=== PATIENT | female | born 1975 | race Caucasian/White ===

== ENCOUNTER 2017-08-23 20:51 | Emergency (ER) | payer OTHER ==
[2017-08-23 21:15] VITALS: BP 155/98; PULSE 98; O2SAT 100
[2017-08-23] MEDS ORDERED: Phenergan 25 MG INJ IM ONE (21:21)
[2017-08-23] MEDS ORDERED: Hydromorphone 1 mg/ml Ampule IM ONE (21:21)
[2017-08-23] MEDS ORDERED: Phenergan 25 MG INJ ONE (21:25)
[2017-08-23] MEDS ORDERED: Hydromorphone 1 mg/ml Ampule ONE (21:25)
--- NOTE | 2017-08-23 21:26 | ERPHSYRPT ---
- History of Present Illness Time Seen by Provider: 08/23/17 21:13 Source: patient Exam Limitations: no limitations Patient Subjective Stated Complaint: Migraine Triage Nursing Assessment: Pt presents to the ED with complaints of migraine x3 days, hx of complaint. Pt states N/V beginning today. Pt states pain is normal for her migraine, no relief with Excedrin. Denies trauma or other pain. Pt is A& O x4, no distress noted. Physician History: FOR THE PAST 3 DAYS PT HAS HAD HER TYPICAL RIGHT SIDED MIGRAINE HEADACHE WITH PHOTOPHOBIA AND TODAY WITH NAUSEA AND VOMITING X5 WITHOUT BLOOD. PT DENIES FEVER , CHEST PAIN, ABDOMINAL PAIN. LAST CT HEAD WAS 2.5 YEARS AGO & WNL. Allergies/Adverse Reactions: lorazepam [From Ativan] Adverse Reaction (Verified 01/01/16 11:54) morphine Adverse Reaction (Verified 01/01/16 11:54) Home Medications: No Reportable Medications [No Reported Medications] 01/01/16 [History] Hx Tetanus, Diphtheria Vaccination/Date Given: Yes Hx Influenza Vaccination/Date Given: No Hx Pneumococcal Vaccination/Date Given: No Immunizations Up to Date: No - Review of Systems Eyes: Photophobia Abdominal/Gastrointestinal: Nausea, Vomiting Neurological: Headache All Other Systems: Reviewed and Negative - Past Medical History Pertinent Past Medical History: Yes Neurological History: Migraines - Past Surgical History Past Surgical History: Yes Gastrointestinal: Cholecystectomy Musculoskeletal: Orthopedic Surgery Female Surgical History: Hysterectomy, Tubal Ligation, Other Other Surgical History: Ruptured ovarian cyst removal. - Social History Smoking Status: Current every day smoker How long have you smoked: 10 years Exposure to second hand smoke: Yes Drug Use: none Patient Lives Alone: No - Female History Hx Now: No - Nursing Vital Signs Nursing Vital Signs: Initial Vital Signs Temperature 98.0 F 08/23/17 21:12 Pulse Rate 98 H 08/23/17 21:12 Respiratory Rate 18 08/23/17 21:12 Blood Pressure 155/98 08/23/17 21:12 O2 Sat by Pulse Oximetry 100 08/23/17 21:12 Pain Scale Pain Intensity 8 - Physical Exam General Appearance: alert Eye Exam: PERRL/EOMI, photophobia Ears, Nose, Throat Exam: TMs normal, pharynx normal, moist mucous membranes Neck Exam: normal inspection Respiratory Exam: lungs clear Cardiovascular Exam: normal heart sounds Gastrointestinal/Abdomen Exam: soft, normal bowel sounds Back Exam: normal range of motion Extremity Exam: normal inspection, normal range of motion Neurologic Exam: alert, oriented x 3, cooperative, sensation nml, No motor deficits, No motor weakness Skin Exam: warm, dry SpO2 Interpretation: normal SpO2: 100 Oxygen Delivery: Room Air - Course Nursing assessment & vital signs reviewed: Yes Ordered Tests: Medication Summary Generic Name Dose Route Start Last Admin Trade Name Freq PRN Reason Stop Dose Admin Hydromorphone HCl 1 mg 08/23/17 21:21 Hydromorphone 1 Mg/Ml Ampule IM 08/23/17 21:22 STAT ONE Promethazine HCl 25 mg 08/23/17 21:21 Phenergan 25 Mg Inj IM 08/23/17 21:22 STAT ONE - Departure Time of Disposition: 21:26 Departure Disposition: Home Clinical Impression: MIGRAINE CEPHALGIA Condition: Stable Critical Care Time: No Referrals: MARIUSZ DURÁN FNP [Primary Care Provider] - Instructions: Migraine Headache (DC) Additional Instructions: FOLLOW UP WITH PRIVATE DOCTOR TOMORROW.
== END 2017-08-23 21:50 | disposition home or self-care (01) ==
LOC: ED 20:51
DX: G43.909 Migraine, unspecified, not intractable, without status migrainosus (principal)
CPT/HCPCS: 96372; 96374; 96375; 99284; J1170; J2550

== ENCOUNTER 2017-09-22 21:27 | Emergency (ER) | payer OTHER ==
[2017-09-22] MEDS ORDERED: Phenergan 25 MG INJ IV ONE (22:08)
[2017-09-22] MEDS ORDERED: Hydromorphone 1 mg/ml Ampule IV ONE ×2 (22:08→23:36)
--- NOTE | 2017-09-22 22:13 | ERPHSYRPT ---
- History of Present Illness Time Seen by Provider: 09/22/17 22:05 Historian: patient Exam Limitations: no limitations Patient Subjective Stated Complaint: pt states she has been having pain in her lt lower abd for a few days and it has increased tonight Triage Nursing Assessment: pt alert and oriented, answers questions approp. pt ambulatory with stooped gait noted. pt guarding lt lower abd. respirations nonlabored with lungs cta. abd soft, pt reports tenderness to lt lower. bowel sounds present Physician History: FOR THE PAST 2 DAYS PT HAS HAD SHARP INTERMITTENT LLQ ABDOMINAL PAIN LASTING UP TO 6 HOURS PER EPISODE. LAST BM WAS THIS AM & WNL. PT ALSO C/O HEADACHE WITH THE ABDOMINAL PAIN AND STATES SHE HAS MIGRAINES. PT DENIES CHEST PAIN, SHORTNESS OF AIR, FEVER, VOMITING. Allergies/Adverse Reactions: lorazepam [From Ativan] Adverse Reaction (Verified 09/22/17 22:05) morphine Adverse Reaction (Verified 09/22/17 22:05) Hx Tetanus, Diphtheria Vaccination/Date Given: Yes Hx Influenza Vaccination/Date Given: No Hx Pneumococcal Vaccination/Date Given: No Immunizations Up to Date: Yes - Review of Systems Constitutional: No Fever Respiratory: No Dyspnea Cardiac: No Chest Pain Abdominal/Gastrointestinal: Abdominal Pain, No Vomiting, No Diarrhea Neurological: Headache All Other Systems: Reviewed and Negative - Past Medical History Pertinent Past Medical History: Yes Neurological History: Migraines - Past Surgical History Past Surgical History: Yes Gastrointestinal: Cholecystectomy Musculoskeletal: Orthopedic Surgery Female Surgical History: Hysterectomy, Tubal Ligation, Other Other Surgical History: Ruptured ovarian cyst removal. 3 knee and 2 shoulder surgeries - Social History Smoking Status: Current every day smoker How long have you smoked: 10 years Exposure to second hand smoke: Yes Drug Use: none Patient Lives Alone: No - Female History Hx Last Menstrual Period: hyster Hx Now: No - Nursing Vital Signs Nursing Vital Signs: Initial Vital Signs Temperature 98.7 F 09/22/17 21:53 Pulse Rate 101 H 09/22/17 21:53 Respiratory Rate 18 09/22/17 21:53 Blood Pressure 144/92 09/22/17 21:53 O2 Sat by Pulse Oximetry 100 09/22/17 21:53 Pain Scale Pain Intensity 9 - Physical Exam General Appearance: alert Eye Exam: PERRL/EOMI Ears, Nose, Throat Exam: TMs normal, pharynx normal, moist mucous membranes Neck Exam: normal inspection Respiratory Exam: lungs clear Cardiovascular Exam: normal heart sounds Gastrointestinal/Abdomen Exam: soft, normal bowel sounds, tenderness (MILD LLQ ABDOMINAL TENDERNESS WITH VOLUNTARY GUARDING.) Back Exam: normal range of motion Extremity Exam: normal inspection, No pedal edema Neurologic Exam: alert, cooperative Skin Exam: warm, dry SpO2 Interpretation: normal SpO2: 100 Oxygen Delivery: Room Air - Course Nursing assessment & vital signs reviewed: Yes - CT Exams Abdomen/Pelvis CT Interpretation: Tele-radiologist Report (NONOBSTRUCTING LEFT RENAL CALCULUS. MILD SMALL BOWEL WALL THICKENING IN THE LEFT SIDE OF THE ABDOMEN COULD REPRESENT ENTERITIS IN THE APPROPRIATE CLINICAL SETTING.) Ordered Tests: Active Orders 24 hr Category Date Time Status IV Insertion STAT Care 09/22/17 22:08 Active ABDOMEN AND PELVIS W/0 CONTRAS [CT] Stat Exams 09/22/17 22:08 Taken AMYLASE Stat Lab 09/22/17 22:20 Completed CBC W DIFF Stat Lab 09/22/17 22:20 Completed CMP Stat Lab 09/22/17 22:20 Completed CULTURE,URINE Stat Lab 09/22/17 22:20 Received LIPASE Stat Lab 09/22/17 22:20 Completed MAG [MAGNESIUM] Stat Lab 09/22/17 22:20 Completed UA W/ MICROSCOPIC Stat Lab 09/22/17 22:20 Completed Urine Triage Profile Stat Lab 09/22/17 22:20 Completed Medication Summary Generic Name Dose Route Start Last Admin Trade Name Freq PRN Reason Stop Dose Admin Lactated Ringer's 1,000 mls @ 100 mls/hr 09/22/17 22:30 09/22/17 22:25 Lactated Ringers IV 10/22/17 22:29 100 mls/hr .Q10H MARCO Administration Ceftriaxone Sodium/Dextrose 1 g in 50 mls @ 100 mls/hr 09/22/17 23:36 Rocephin 1 Gm-D5w 50 Ml Bag IV 09/23/17 00:05 STAT STA Discontinued Medications Generic Name Dose Route Start Last Admin Trade Name Freq PRN Reason Stop Dose Admin Hydromorphone HCl 1 mg 09/22/17 22:08 09/22/17 22:24 Hydromorphone 1 Mg/Ml Ampule IV 09/22/17 22:09 1 mg STAT ONE Administration Hydromorphone HCl Confirm 09/22/17 22:21 Dilaudid 2 Mg Injection Administered 09/22/17 22:22 Dose 2 mg .ROUTE .STK-MED ONE Hydromorphone HCl 1 mg 09/22/17 23:36 Hydromorphone 1 Mg/Ml Ampule IV 09/22/17 23:37 STAT ONE Ondansetron HCl 4 mg 09/22/17 23:36 Zofran 4 Mg/2 Ml Vial IV 09/22/17 23:37 STAT ONE Promethazine HCl 12.5 mg 09/22/17 22:08 09/22/17 22:25 Phenergan 25 Mg Inj IV 09/22/17 22:09 12.5 mg STAT ONE Administration Promethazine HCl Confirm 09/22/17 22:21 Phenergan 25 Mg Inj Administered 09/22/17 22:22 Dose 25 mg .ROUTE .STK-MED ONE Lab/Rad Data: Laboratory Result Diagrams 09/22/17 22:20 09/22/17 22:20 Laboratory Results 09/22/17 09/22/17 09/22/17 Range/Units 22:20 22:20 22:20 WBC 11.8 H (4.0-10.5) K/mm3 RBC 4.05 L (4.1-5.4) M/mm3 Hgb 13.6 (12.0-16.0) gm/dl Hct 41.8 (35-47) % MCV 103.2 H (78-100) fl MCH 33.5 H (26-32) pg MCHC 32.5 (32-36) g/dl RDW 12.9 (11.5-14.0) % Plt Count 300 (150-450) K/mm3 MPV 9.6 H (6-9.5) fl Gran % 58.0 (36.0-66.0) % Lymphocytes % 30.2 (24.0-44.0) % Monocytes % 9.5 (0.0-12.0) % Eosinophils % 1.9 (0.00-5.0) % Basophils % 0.4 (0.0-0.4) % Basophils # 0.05 (0-0.4) Sodium 142 (137-145) mmol/L Potassium 4.0 (3.5-5.1) mmol/L Chloride 106 (98-107) mmol/L Carbon Dioxide 27 (22-30) mmol/L Anion Gap 13.6 (5-15) MEQ/L BUN 12 (7-17) mg/dL Creatinine 0.83 (0.52-1.04) mg/dL Estimated GFR > 60 ML/MIN Glucose 100 (74-106) mg/dL Calcium 9.1 (8.4-10.2) mg/dL Magnesium 2.0 (1.6-2.3) mg/dL Total Bilirubin 0.10 L (0.2-1.3) mg/dL AST 16 (14-36) U/L ALT 15 (0-35) U/L Alkaline Phosphatase 42 (38-126) U/L Serum Total Protein 7.0 (6.3-8.2) gm/dL Albumin 4.3 (3.5-5.0) g/dL Amylase 79 (30-110) U/L Lipase 119 (23-300) U/L Ur Collection Type Urine Color (YELLOW) Urine Appearance (CLEAR) Urine pH (5-6) Ur Specific [place] (1.005-1.025) Urine Protein (Negative) Urine Ketones (NEGATIVE) Urine Blood (0-5) Vincent/ul Urine Nitrite (NEGATIVE) Urine Bilirubin (NEGATIVE) Urine Urobilinogen (0-1) mg/dL Ur Leukocyte Esterase (NEGATIVE) Urine Microscopic RBC (0-2) /HPF Urine Microscopic WBC (0-5) /HPF Ur Epithelial Cells (FEW) /HPF Urine Bacteria (NEGATIVE) /HPF Urine Culture Reflexed (NO) Urine Glucose (NEGATIVE) mg/dL Urine Opiates Level (NEGATIVE) Ur Methadone (NEGATIVE) Urine Barbiturates (NEGATIVE) Ur Phencyclidine (PCP) (NEGATIVE) Urine Amphetamine (NEGATIVE) U Benzodiazepine Level (NEGATIVE) Urine Cocaine (NEGATIVE) Urine Marijuana (THC) (NEGATIVE) Specimen Received 09/22/17 09/22/17 Range/Units 22:20 22:20 WBC (4.0-10.5) K/mm3 RBC (4.1-5.4) M/mm3 Hgb (12.0-16.0) gm/dl Hct (35-47) % MCV (78-100) fl MCH (26-32) pg MCHC (32-36) g/dl RDW (11.5-14.0) % Plt Count (150-450) K/mm3 MPV (6-9.5) fl Gran % (36.0-66.0) % Lymphocytes % (24.0-44.0) % Monocytes % (0.0-12.0) % Eosinophils % (0.00-5.0) % Basophils % (0.0-0.4) % Basophils # (0-0.4) Sodium (137-145) mmol/L Potassium (3.5-5.1) mmol/L Chloride (98-107) mmol/L Carbon Dioxide (22-30) mmol/L Anion Gap (5-15) MEQ/L BUN (7-17) mg/dL Creatinine (0.52-1.04) mg/dL Estimated GFR ML/MIN Glucose (74-106) mg/dL Calcium (8.4-10.2) mg/dL Magnesium (1.6-2.3) mg/dL Total Bilirubin (0.2-1.3) mg/dL AST (14-36) U/L ALT (0-35) U/L Alkaline Phosphatase (38-126) U/L Serum Total Protein (6.3-8.2) gm/dL Albumin (3.5-5.0) g/dL Amylase (30-110) U/L Lipase (23-300) U/L Ur Collection Type CLEAN CATCH Urine Color YELLOW (YELLOW) Urine Appearance SLIGHTLY CLOUDY (CLEAR) Urine pH 6.5 (5-6) Ur Specific [place] 1.015 (1.005-1.025) Urine Protein NEGATIVE (Negative) Urine Ketones NEGATIVE (NEGATIVE) Urine Blood NEGATIVE (0-5) Vincent/ul Urine Nitrite POSITIVE (NEGATIVE) Urine Bilirubin NEGATIVE (NEGATIVE) Urine Urobilinogen NORMAL (0-1) mg/dL Ur Leukocyte Esterase NEGATIVE (NEGATIVE) Urine Microscopic RBC 2-5 (0-2) /HPF Urine Microscopic WBC 5-10 (0-5) /HPF Ur Epithelial Cells FEW (FEW) /HPF Urine Bacteria MODERATE (NEGATIVE) /HPF Urine Culture Reflexed YES (NO) Urine Glucose NEGATIVE (NEGATIVE) mg/dL Urine Opiates Level NEGATIVE (NEGATIVE) Ur Methadone NEGATIVE (NEGATIVE) Urine Barbiturates NEGATIVE (NEGATIVE) Ur Phencyclidine (PCP) NEGATIVE (NEGATIVE) Urine Amphetamine NEGATIVE (NEGATIVE) U Benzodiazepine Level NEGATIVE (NEGATIVE) Urine Cocaine NEGATIVE (NEGATIVE) Urine Marijuana (THC) NEGATIVE (NEGATIVE) Specimen Received 09/22/17 2230 - Departure Time of Disposition: 23:41 Departure Disposition: Home Clinical Impression: ABDOMINAL PAIN, UTI Condition: Stable Critical Care Time: No Referrals: MARIUSZ DURÁN FNP [Primary Care Provider] - Instructions: Urinary Tract Infection, Adult (DC) Additional Instructions: FOLLOW UP WITH PRIVATE DOCTOR TOMORROW. Prescriptions: Naproxen [Naprosyn] 500 mg PO Q12H PRN PRN #20 tablet PRN Reason: Pain Smz/Tmp Ds Tablet [Bactrim Ds Tablet] 1 udtab PO BID #20 tablet
[2017-09-22] MEDS ORDERED: DILAUDID 2 MG INJECTION ONE ×2 (22:21→23:48)
[2017-09-22] MEDS ORDERED: Lactated Ringers 1,000 ML IV ONE (22:21)
[2017-09-22] MEDS ORDERED: Phenergan 25 MG INJ ONE (22:21)
[2017-09-22] MEDS ORDERED: Lactated Ringers 1,000 ML IV SCH (22:30)
[2017-09-22 22:41] LABS: BASOPHIL % 0.4 % (0.0-0.4); Basophil (Absolute #) 0.05 (0-0.4); Eosinophil % 1.9 % (0.00-5.0); Eosinophil (Absolute #) 0.22 (0-0.5); Granulocyte Absolute (ANC) 6.87 (1.4-6.9); Hematocrit 41.8 % (35-47); Hemoglobin 13.6 gm/dl (12.0-16.0); Lymphocyte (Absolute #) 3.57 (1.0-4.6); Lymphocytes % 30.2 % (24.0-44.0); Mean Cell Volume 103.2 fl (78-100); Mean Corpuscular Hgb Concent. 32.5 g/dl (32-36); Mean Platelet Volume 9.6 fl (6-9.5); Monocyte (Absolute #) 1.12 (0.0-1.3); Monocytes % 9.5 % (0.0-12.0); Platelet Count 300 K/mm3 (150-450); Red Blood Count 4.05 M/mm3 (4.1-5.4); Red Cell Distribution Width 12.9 % (11.5-14.0); White Blood Count 11.8 K/mm3 (4.0-10.5)
[2017-09-22 22:44] LABS: Mean Corpuscular Hemoglobin 33.5 pg (26-32)
[2017-09-22 23:06] LABS: Amphetamine,Urine NEGATIVE (NEGATIVE); Barbiturate,Urine NEGATIVE (NEGATIVE); Benzodiazepine,Urine NEGATIVE (NEGATIVE); Cocaine,Urine NEGATIVE (NEGATIVE); Methadone,Urine NEGATIVE (NEGATIVE); Opiate,Urine NEGATIVE (NEGATIVE); PCP,Urine NEGATIVE (NEGATIVE); THC,Urine NEGATIVE (NEGATIVE)
[2017-09-22 23:27] LABS: Appearance SLIGHTLY CLOUDY (CLEAR); Bilirubin NEGATIVE (NEGATIVE); Blood NEGATIVE Ery/ul (0-5); Glucose NEGATIVE (NEGATIVE); Ketones NEGATIVE (NEGATIVE); Leukocyte Esterase NEGATIVE (NEGATIVE); Nitrite POSITIVE (NEGATIVE); Ph 6.5 (5-6); Protein,Urine Dip NEGATIVE (Negative); Specific Gravity 1.015 (1.005-1.025); Urobilinogen NORMAL mg/dL (0-1)
[2017-09-22 23:29] LABS: ALBUMIN 4.3 g/dL (3.5-5.0); ALKALINE PHOSPHATASE 42 U/L (38-126); AMYLASE 79 U/L (30-110); ANION GAP 13.6 MEQ/L (5-15); BLOOD UREA NITROGEN 12 mg/dL (7-17); CHLORIDE 106 mmol/L (98-107); Calcium 9.1 mg/dL (8.4-10.2); Carbon Dioxide 27 mmol/L (22-30); Creatinine 1 0.83 mg/dL (0.52-1.04); Glucose 100 mg/dL (74-106); LIPASE 119 U/L (23-300); SGOT/AST 16 U/L (14-36); SGPT/ALT 15 U/L (0-35); SODIUM 142 mmol/L (137-145)
[2017-09-22 23:30] LABS: Bacteria MODERATE /HPF (NEGATIVE); Epithelial Cells FEW /HPF (FEW)
[2017-09-22] MEDS ORDERED: Zofran 4 MG/2 ML VIAL IV ONE (23:36)
[2017-09-22] MEDS ORDERED: ROCEPHIN 1 Gm-D5w 50 ml Bag** 1 G/50 ML IVPB IV STA (23:36)
[2017-09-22] MEDS ORDERED: Zofran 4 MG/2 ML VIAL ONE (23:48)
[2017-09-22] MEDS ORDERED: ROCEPHIN 1 Gm-D5w 50 ml Bag** 1 G/50 ML IVPB IV ONE (23:49)
[2017-09-22 23:58] VITALS: BP 121/80; PULSE 92; O2SAT 99
--- NOTE | 2017-09-23 08:50 | XRAY ---
Indication: Left lower quadrant pain 3 days. History of ovarian cysts. Multiple contiguous axial images obtained through the abdomen and pelvis without contrast as ordered. Comparison: None Lung bases demonstrate mild bibasilar dependent atelectasis. No infiltrate or effusion. Heart is not enlarged. Stomach is distended with food. Noncontrasted stomach and bowel loops appear nonobstructed. Normal appendix. No free fluid/air. Previous cholecystectomy and partial hysterectomy. Nonobstructing punctate left renal calcification. Remaining liver, pancreas, spleen, adrenal glands, kidneys, ureters, bladder, and aorta appear unremarkable for noncontrast exam. Osseous structures intact. Impression: 1. Nonobstructing left renal micro-calcification. 2. No acute intra-abdominal/pelvic abnormalities on this noncontrast exam. Comment: Preliminary interpretation was made by [facility]. No critical discrepancy. CTDI 8.13
== END 2017-09-23 00:15 | disposition home or self-care (01) ==
LOC: ED 21:27
DX: R10.32 Left lower quadrant pain (principal); N39.0 Urinary tract infection, site not specified
CPT/HCPCS: 36000; 36415; 74176; 80053; 80307; 81000; 82150; 83690; 83735; 85025; 87086; 96360; 96361; 96365; 96374; 96375; 96376; 99284; J0696; J1170; J2405; J2550

== ENCOUNTER 2017-10-03 12:56 | Emergency (ER) | payer OTHER ==
[2017-10-03] MEDS ORDERED: TORAdol 30 mg Injection IV ONE (13:10)
[2017-10-03] MEDS ORDERED: Zofran 4 MG/2 ML VIAL IV ONE (13:10)
[2017-10-03] MEDS ORDERED: Sodium Chloride 0.9% 1000 ML 1,000 ML IV STA (13:10)
--- NOTE | 2017-10-03 13:15 | ERPHSYRPT ---
- History of Present Illness Time Seen by Provider: 10/03/17 13:05 Source: patient Exam Limitations: no limitations Patient Subjective Stated Complaint: pt reports being dx with a kidney stone a week and half age-states that today pain has become more intense-denies difficulty with urination-denies fever Triage Nursing Assessment: pt pink warm and [id number] soft and nontender to palp-resp easy and nonlbored Physician History: 41 y/o female comes to the ER with complaints of left groin pain that started today. Pt was seen 1 1/2 weeks ago for a kidney stone and was given pain meds and flomax. Pt states that the pain got better and then started coming back today. Pt describes the pain as sharp, constant, 9/10, and not relieved by tylenol. Pt does admit to nausea. Pt denies any fever, chills, vomiting, back pain or urinary symptoms. Timing/Duration: today Activites at Onset: none Quality: sharpness Onset Location: pelvic pain Pain Radiation: none Severity of Pain-Max: severe Severity of Pain-Current: severe Prior abdominal problems: similar symptoms Sexual intercourse history: non-contributory Modifying Factors: Improves With: nothing Associated Symptoms: abdominal pain Allergies/Adverse Reactions: lorazepam [From Ativan] Adverse Reaction (Verified 10/03/17 13:08) morphine Adverse Reaction (Verified 10/03/17 13:08) Hx Tetanus, Diphtheria Vaccination/Date Given: Yes Hx Influenza Vaccination/Date Given: No Hx Pneumococcal Vaccination/Date Given: No - Review of Systems Constitutional: No Fever, No Chills Eyes: No Symptoms Ears, Nose, & Throat: No Symptoms Respiratory: No Cough, No Dyspnea Cardiac: No Chest Pain, No Edema, No Syncope Abdominal/Gastrointestinal: Abdominal Pain, No Nausea, No Vomiting, No Diarrhea Genitourinary Symptoms: No Dysuria, No Frequency, No Hematuria, No Hesitancy, No Urgency Musculoskeletal: No Back Pain, No Neck Pain Skin: No Rash Neurological: No Dizziness, No Focal Weakness, No Sensory Changes Psychological: No Symptoms Endocrine: No Symptoms All Other Systems: Reviewed and Negative - Past Medical History Pertinent Past Medical History: Yes Neurological History: Migraines - Past Surgical History Past Surgical History: Yes Gastrointestinal: Cholecystectomy Musculoskeletal: Orthopedic Surgery Female Surgical History: Hysterectomy, Tubal Ligation, Other Other Surgical History: Ruptured ovarian cyst removal. 3 knee and 2 shoulder surgeries - Social History Smoking Status: Current every day smoker How long have you smoked: 10 years Exposure to second hand smoke: Yes Drug Use: none Patient Lives Alone: No - Female History Hx Last Menstrual Period: hysterectomy Hx Now: No - Nursing Vital Signs Nursing Vital Signs: Initial Vital Signs Temperature 98.3 F 10/03/17 13:03 Pulse Rate 94 H 10/03/17 13:03 Respiratory Rate 18 10/03/17 13:03 Blood Pressure 131/94 10/03/17 13:03 O2 Sat by Pulse Oximetry 100 10/03/17 13:03 Pain Scale Pain Intensity 9 - Physical Exam General Appearance: mild distress, alert Eye Exam: PERRL/EOMI, eyes nml inspection Ears, Nose, Throat Exam: normal ENT inspection, TMs normal, pharynx normal, moist mucous membranes Neck Exam: normal inspection, non-tender, supple, full range of motion Respiratory Exam: normal breath sounds, lungs clear, No respiratory distress Cardiovascular Exam: regular rate/rhythm, normal heart sounds, normal peripheral pulses Gastrointestinal/Abdomen Exam: soft, normal bowel sounds, tenderness, No mass Back Exam: normal inspection, normal range of motion, CVA tenderness, No vertebral tenderness Extremity Exam: normal inspection, normal range of motion, pelvis stable Neurologic Exam: alert, oriented x 3, 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, 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, normal mood/affect, sensation nml, No motor deficits Skin Exam: normal color, warm, dry Lymphatic Exam: No adenopathy SpO2: 100 Oxygen Delivery: Room Air - Course Nursing assessment & vital signs reviewed: Yes Ordered Tests: Active Orders 24 hr Category Date Time Status IV Insertion STAT Care 10/03/17 13:10 Active NPO (ED) STAT Care 10/03/17 13:10 Active ABDOMEN AND PELVIS W/0 CONTRAS [CT] Stat Exams 10/03/17 13:11 Completed AMYLASE Stat Lab 10/03/17 13:18 Completed CBC W DIFF Stat Lab 10/03/17 13:18 Completed CMP Stat Lab 10/03/17 13:18 Completed CULTURE,URINE Stat Lab 10/03/17 13:18 Received LIPASE Stat Lab 10/03/17 13:18 Completed UA W/ MICROSCOPIC Stat Lab 10/03/17 13:18 Completed Medication Summary Discontinued Medications Generic Name Dose Route Start Last Admin Trade Name Freq PRN Reason Stop Dose Admin Hydromorphone HCl 1 mg 10/03/17 14:10 10/03/17 14:17 Hydromorphone 1 Mg/Ml Ampule IV 10/03/17 14:11 1 mg STAT ONE Administration Hydromorphone HCl Confirm 10/03/17 14:15 Dilaudid 2 Mg Injection Administered 10/03/17 14:16 Dose 2 mg .ROUTE .STK-MED ONE Sodium Chloride 1,000 mls @ 999 mls/hr 10/03/17 13:10 10/03/17 13:22 Sodium Chloride 0.9% 1000 Ml IV 10/03/17 14:10 999 mls/hr .Q1H1M STA Administration Sodium Chloride Confirm 10/03/17 13:21 Sodium Chloride 0.9% 1000 Ml Administered 10/03/17 13:22 Dose 1,000 mls @ ud .ROUTE .STK-MED ONE Ketorolac Tromethamine 30 mg 10/03/17 13:10 10/03/17 13:21 Toradol 30 Mg Injection IV 10/03/17 13:11 30 mg STAT ONE Administration Ketorolac Tromethamine Confirm 10/03/17 13:21 Toradol 30 Mg Injection Administered 10/03/17 13:22 Dose 30 mg .ROUTE .STK-MED ONE Ondansetron HCl 4 mg 10/03/17 13:10 10/03/17 13:21 Zofran 4 Mg/2 Ml Vial IV 10/03/17 13:11 4 mg STAT ONE Administration Ondansetron HCl Confirm 10/03/17 13:21 Zofran 4 Mg/2 Ml Vial Administered 10/03/17 13:22 Dose 4 mg .ROUTE .STK-MED ONE Lab/Rad Data: Laboratory Result Diagrams 10/03/17 13:18 10/03/17 13:18 Laboratory Results 10/03/17 10/03/17 10/03/17 Range/Units 13:18 13:18 13:18 WBC 9.8 (4.0-10.5) K/mm3 RBC 4.49 (4.1-5.4) M/mm3 Hgb 15.1 (12.0-16.0) gm/dl Hct 46.3 (35-47) % MCV 103.1 H (78-100) fl MCH 33.6 H (26-32) pg MCHC 32.6 (32-36) g/dl RDW 13.1 (11.5-14.0) % Plt Count 300 (150-450) K/mm3 MPV 9.6 H (6-9.5) fl Gran % 58.5 (36.0-66.0) % Eos # (Auto) 0.35 (0-0.5) Absolute Lymphs (auto) 2.68 (1.0-4.6) Lymphocytes % 27.3 (24.0-44.0) % Monocytes % 9.9 (0.0-12.0) % Eosinophils % 3.6 (0.00-5.0) % Basophils % 0.7 (0.0-0.4) % Absolute Granulocytes 5.73 (1.4-6.9) Basophils # 0.07 (0-0.4) Sodium 142 (137-145) mmol/L Potassium 4.1 (3.5-5.1) mmol/L Chloride 106 (98-107) mmol/L Carbon Dioxide 24 (22-30) mmol/L Anion Gap 15.8 H (5-15) MEQ/L BUN 9 (7-17) mg/dL Creatinine 0.80 (0.52-1.04) mg/dL Estimated GFR > 60 ML/MIN Glucose 97 (74-106) mg/dL Calcium 9.7 (8.4-10.2) mg/dL Total Bilirubin 0.40 (0.2-1.3) mg/dL AST 21 (14-36) U/L ALT 25 (0-35) U/L Alkaline Phosphatase 48 (38-126) U/L Serum Total Protein 7.8 (6.3-8.2) g/dL Albumin 4.7 (3.5-5.0) g/dL Amylase 68 (30-110) U/L Lipase 53 (23-300) U/L Ur Collection Type CLEAN CATCH Urine Color YELLOW (YELLOW) Urine Appearance CLEAR (CLEAR) Urine pH 5.0 (5-6) Ur Specific [place] 1.020 (1.005-1.025) Urine Protein TRACE (Negative) Urine Ketones NEGATIVE (NEGATIVE) Urine Blood TRACE NON-HEM (0-5) Vincent/ul Urine Nitrite NEGATIVE (NEGATIVE) Urine Bilirubin NEGATIVE (NEGATIVE) Urine Urobilinogen NORMAL (0-1) mg/dL Ur Leukocyte Esterase NEGATIVE (NEGATIVE) Urine Microscopic RBC 2-5 (0-2) /HPF Urine Microscopic WBC 0-2 (0-5) /HPF Ur Epithelial Cells MANY (FEW) /HPF Urine Bacteria MANY (NEGATIVE) /HPF Urine Culture Reflexed YES (NO) Urine Glucose NEGATIVE (NEGATIVE) mg/dL Specimen Received 10/03/17 1315 - Progress Progress: improved Progress Note: 10/03/17 14:[address] scan shows a left microcalcification with no obstruction. There is a new right sided ovarian cyst. No infection in the urine. The rest of the labs are within normal limits. The patient feels better after receiving dilaudid, zofran and NS fluids. I spoke to the nurse practitioner at Dr Thorpe's office and patient will be seen as soon as possible. - Departure Time of Disposition: 14:28 Departure Disposition: Home Clinical Impression: Kidney stone Ovarian cyst Qualifiers: Laterality: right Qualified Code(s): N83.201 - Unspecified ovarian cyst, right side Condition: Stable Critical Care Time: No Referrals: ROMAIN BUTLER NP [Primary Care Provider] - KEVIN THORPE [COURTESY STAFF] - Instructions: Ovarian Cyst (DC), Kidney Stones (DC) Additional Instructions: Follow up with Dr Thorpe in the next few days. Return to the ER if you should have worsening abdominal pain, nausea, vomiting, fever, chills or urinary symptoms. Prescriptions: Hydrocodone Bit/Acetaminophen [[place] 5-325 Tablet] 1 each PO QID PRN #12 tablet MDD 4 PRN Reason: Pain Ondansetron [Zofran Odt] 4 mg PO QID PRN #20 tab.rapdis PRN Reason: Nausea/Vomiting
[2017-10-03] MEDS ORDERED: TORAdol 30 mg Injection ONE (13:21)
[2017-10-03] MEDS ORDERED: Zofran 4 MG/2 ML VIAL ONE (13:21)
[2017-10-03] MEDS ORDERED: Sodium Chloride 0.9% 1000 ML 1,000 ML ONE (13:21)
[2017-10-03 13:29] LABS: BASOPHIL % 0.7 % (0.0-0.4); Basophil (Absolute #) 0.07 (0-0.4); Eosinophil % 3.6 % (0.00-5.0); Eosinophil (Absolute #) 0.35 (0-0.5); Granulocyte Absolute (ANC) 5.73 (1.4-6.9); Granulocytes % 58.5 % (36.0-66.0); Hematocrit 46.3 % (35-47); Hemoglobin 15.1 gm/dl (12.0-16.0); Lymphocyte (Absolute #) 2.68 (1.0-4.6); Lymphocytes % 27.3 % (24.0-44.0); Mean Cell Volume 103.1 fl (78-100); Mean Corpuscular Hemoglobin 33.6 pg (26-32); Mean Corpuscular Hgb Concent. 32.6 g/dl (32-36); Mean Platelet Volume 9.6 fl (6-9.5); Monocyte (Absolute #) 0.97 (0.0-1.3); Monocytes % 9.9 % (0.0-12.0); Platelet Count 300 K/mm3 (150-450); Red Blood Count 4.49 M/mm3 (4.1-5.4); Red Cell Distribution Width 13.1 % (11.5-14.0); White Blood Count 9.8 K/mm3 (4.0-10.5)
[2017-10-03 13:36] LABS: Appearance CLEAR (CLEAR)
[2017-10-03 13:37] LABS: Bacteria MANY /HPF (NEGATIVE); Bilirubin NEGATIVE (NEGATIVE); Blood TRACE NON-HEM Ery/ul (0-5); Epithelial Cells MANY /HPF (FEW); Glucose NEGATIVE (NEGATIVE); Ketones NEGATIVE (NEGATIVE); Leukocyte Esterase NEGATIVE (NEGATIVE); Nitrite NEGATIVE (NEGATIVE); Protein,Urine Dip TRACE (Negative); Urobilinogen NORMAL mg/dL (0-1); WBC 0-2 /HPF (0-5)
[2017-10-03 13:52] LABS: ALBUMIN 4.7 g/dL (3.5-5.0); ALKALINE PHOSPHATASE 48 U/L (38-126); AMYLASE 68 U/L (30-110); ANION GAP 15.8 MEQ/L (5-15); BLOOD UREA NITROGEN 9 mg/dL (7-17); CHLORIDE 106 mmol/L (98-107); Calcium 9.7 mg/dL (8.4-10.2); Carbon Dioxide 24 mmol/L (22-30); Glucose 97 mg/dL (74-106); LIPASE 53 U/L (23-300); Potassium 4.1 mmol/L (3.5-5.1); SGOT/AST 21 U/L (14-36); SGPT/ALT 25 U/L (0-35); SODIUM 142 mmol/L (137-145); Total Protein 7.8 g/dL (6.3-8.2)
--- NOTE | 2017-10-03 13:52 | XRAY ---
Indication: Left lower quadrant pain. Multiple contiguous axial images obtained through the abdomen and pelvis without contrast using renal stone protocol. Comparison: September 22, 2017. Lung bases essentially clear. Heart is not enlarged. Stable nonobstructing punctate left renal calculus. Noncontrasted stomach and bowel loops again appear nonobstructed. Normal appendix. There is now mild diffuse scattered colonic fecal debris throughout. New 3.5 cm right ovary cyst. No free fluid/air. Again previous cholecystectomy and partial hysterectomy. Remaining liver, pancreas, spleen, adrenal glands, kidneys, ureters, bladder, and aorta appear unremarkable for noncontrast exam. Osseous structures intact. Impression: 1. Stable nonobstructing left renal micro-calculus. 2. New 3.5 cm right ovary cyst. 3. Mild fecal stasis without obstruction. CTDI 8.81
[2017-10-03] MEDS ORDERED: Hydromorphone 1 mg/ml Ampule IV ONE (14:10)
[2017-10-03] MEDS ORDERED: DILAUDID 2 MG INJECTION ONE (14:15)
[2017-10-03 14:48] VITALS: BP 129/91; PULSE 71; O2SAT 99
== END 2017-10-03 14:48 | disposition home or self-care (01) ==
LOC: ED 12:56
DX: N20.0 Calculus of kidney (principal); N83.201 Unspecified ovarian cyst, right side
CPT/HCPCS: 36000; 36415; 74176; 80053; 81000; 82150; 83690; 85025; 87086; 96360; 96374; 96375; 99284; J1170; J1885; J2405

== ENCOUNTER 2017-11-09 19:56 | Emergency (ER) | payer OTHER ==
[2017-11-09] MEDS ORDERED: Hydromorphone 1 mg/ml Ampule IM ONE (22:16)
[2017-11-09] MEDS ORDERED: Phenergan 25 MG INJ IM ONE (22:16)
[2017-11-09] MEDS ORDERED: Hydromorphone 1 mg/ml Ampule ONE (22:21)
[2017-11-09] MEDS ORDERED: Phenergan 25 MG INJ ONE (22:21)
--- NOTE | 2017-11-09 22:21 | ERPHSYRPT ---
- History of Present Illness Time Seen by Provider: 11/09/17 22:05 Source: patient Exam Limitations: no limitations Patient Subjective Stated Complaint: migraine starting 2 days [employer] with vomiting light sensitive Triage Nursing Assessment: alert and oriented presents with sunglasses.. staets pain stated 2 days ago. on right posterior head. neuro intact. has hx migraines. Physician History: FOR THE PAST 2 DAYS PT HAS HAD A RIGHT SIDED MIGRAINE HEADACHE WITH NAUSEA, VOMITING AND PHOTOPHOBIA. LAST CT HEAD WAS 3 YEARS AGO & WNL. Allergies/Adverse Reactions: lorazepam [From Ativan] Adverse Reaction (Verified 10/03/17 13:08) morphine Adverse Reaction (Verified 10/03/17 13:08) Hx Tetanus, Diphtheria Vaccination/Date Given: Yes Hx Influenza Vaccination/Date Given: No Hx Pneumococcal Vaccination/Date Given: No Immunizations Up to Date: Yes - Review of Systems Eyes: Photophobia Abdominal/Gastrointestinal: Nausea, Vomiting Neurological: Headache All Other Systems: Reviewed and Negative - Past Medical History Pertinent Past Medical History: Yes Neurological History: Migraines - Past Surgical History Past Surgical History: Yes Gastrointestinal: Cholecystectomy Musculoskeletal: Orthopedic Surgery Female Surgical History: Hysterectomy, Tubal Ligation, Other Other Surgical History: Ruptured ovarian cyst removal. 3 knee and 2 shoulder surgeries - Social History Smoking Status: Current every day smoker How long have you smoked: 10 years Exposure to second hand smoke: No Drug Use: none Patient Lives Alone: No - Female History Hx Now: No - Nursing Vital Signs Nursing Vital Signs: Initial Vital Signs Temperature 97.9 F 11/09/17 20:07 Pulse Rate 88 11/09/17 20:07 Respiratory Rate 16 11/09/17 20:07 Blood Pressure 156/90 11/09/17 20:07 O2 Sat by Pulse Oximetry 98 11/09/17 20:07 Pain Scale Pain Intensity 8 - Physical Exam General Appearance: alert Eye Exam: PERRL/EOMI, photophobia Ears, Nose, Throat Exam: TMs normal, pharynx normal, moist mucous membranes Neck Exam: normal inspection Respiratory Exam: lungs clear Cardiovascular Exam: normal heart sounds Gastrointestinal/Abdomen Exam: soft, normal bowel sounds Back Exam: normal range of motion Extremity Exam: normal inspection, normal range of motion, No pedal edema Neurologic Exam: alert, cooperative, sensation nml, No motor deficits, No motor weakness Skin Exam: warm, dry SpO2 Interpretation: normal SpO2: 98 Oxygen Delivery: Room Air - Course Nursing assessment & vital signs reviewed: Yes - Departure Time of Disposition: 22:20 Departure Disposition: Home Clinical Impression: MIGRAINE CEPHALGIA Condition: Stable Critical Care Time: No Referrals: ROMAIN BUTLER NP [Primary Care Provider] - Instructions: Headache, Adult (DC) Additional Instructions: FOLLOW UP WITH PRIVATE DOCTOR TOMORROW. Prescriptions: Promethazine HCl 25 mg [Phenergan 25 mg] 25 mg PO Q4H PRN PRN #14 tablet PRN Reason: Nausea/Vomiting
[2017-11-09 22:29] VITALS: BP 143/85; PULSE 80; O2SAT 97
== END 2017-11-09 22:38 | disposition home or self-care (01) ==
LOC: ED 19:56
DX: G43.909 Migraine, unspecified, not intractable, without status migrainosus (principal)
CPT/HCPCS: 96372; 99283; 99284; J1170; J2550

== ENCOUNTER 2017-12-01 16:43 | Emergency (ER) | payer OTHER ==
[2017-12-01 17:19] VITALS: BP 153/92; PULSE 90; O2SAT 97
--- NOTE | 2017-12-01 18:00 | ERPHSYRPT ---
- History of Present Illness Time Seen by Provider: 12/01/17 17:59 Source: patient Exam Limitations: no limitations Patient Subjective Stated Complaint: pt here for injury to left foot states she hit left foot on bed 2 nights ago Triage Nursing Assessment: pt walked in ,alert,resp easy, has reddness to left top of foot with swelling Physician History: The patient is a 42-year-old female who complains of hurting her left great toe yesterday afternoon on a bedpost when she was walking passed and catching her toe on the bedpost. The toe joint is now painful and swollen. She has been taking Tylenol and ibuprofen without much improvement. Her past medical history is significant for kidney stones and migraines. Method of Injury: direct blow Occurred: yesterday Quality: aching, throbbing Severity of Pain-Max: moderate Severity of Pain-Current: moderate Lower Extremities Pain: 1st toe: left Modifying Factors: Improves With: pain medication Associated Symptoms: none Allergies/Adverse Reactions: lorazepam [From Ativan] Adverse Reaction (Verified 12/01/17 17:19) morphine Adverse Reaction (Verified 12/01/17 17:19) Hx Tetanus, Diphtheria Vaccination/Date Given: Yes Hx Influenza Vaccination/Date Given: No Hx Pneumococcal Vaccination/Date Given: No Immunizations Up to Date: Yes - Review of Systems Constitutional: No Fever, No Chills Eyes: No Symptoms Ears, Nose, & Throat: No Symptoms Respiratory: No Cough, No Dyspnea Cardiac: No Chest Pain, No Edema, No Syncope Abdominal/Gastrointestinal: No Abdominal Pain, No Nausea, No Vomiting, No Diarrhea Genitourinary Symptoms: No Dysuria Musculoskeletal: Injury, Joint Pain, Joint Swelling Skin: No Rash Neurological: No Dizziness, No Focal Weakness, No Sensory Changes Psychological: No Symptoms Endocrine: No Symptoms Hematologic/Lymphatic: No Symptoms Immunological/Allergic: No Symptoms All Other Systems: Reviewed and Negative - Past Medical History Pertinent Past Medical History: Yes Neurological History: Migraines - Past Surgical History Past Surgical History: Yes Gastrointestinal: Cholecystectomy Musculoskeletal: Orthopedic Surgery Female Surgical History: Hysterectomy, Tubal Ligation, Other Other Surgical History: Ruptured ovarian cyst removal. 3 knee and 2 shoulder surgeries - Social History Smoking Status: Current every day smoker How long have you smoked: 10 years Exposure to second hand smoke: Yes Drug Use: none Patient Lives Alone: No - Female History Hx Last Menstrual Period: hyster Hx Now: No - Nursing Vital Signs Nursing Vital Signs: Initial Vital Signs Temperature 98 F 12/01/17 17:14 Pulse Rate 90 12/01/17 17:14 Respiratory Rate 16 12/01/17 17:14 Blood Pressure 153/92 12/01/17 17:14 O2 Sat by Pulse Oximetry 97 12/01/17 17:14 Pain Scale Pain Intensity 6 - Physical Exam General Appearance: alert Eyes, Ears, Nose, Throat Exam: moist mucous membranes Neck Exam: non-tender, supple Cardiovascular/Respiratory Exam: chest non-tender, normal breath sounds, regular rate/rhythm, no respiratory distress Gastrointestinal/Abdominal Exam: non-tender, guarding Back Exam: normal inspection, No vertebral tenderness Hips Exam: bilateral: normal inspection Legs Exam: bilateral leg: normal inspection Knees Exam: bilateral knee: normal inspection Ankle Exam: bilateral ankle: normal inspection Foot Exam: right foot: normal inspection, left foot: limited range of motion, soft tissue tenderness, swelling (left 1st MTP joint) Neuro/Tendon Exam: normal sensation, normal motor functions Mental Status Exam: alert, oriented x 3, cooperative Skin Exam: normal color, warm, dry SpO2 Interpretation: normal SpO2: 97 - Radiology Exams Left Foot X-ray Interpretation: Interpreted by me, Negative Ordered Tests: Active Orders 24 hr Category Date Time Status FOOT (MINIMUM 3 VIEWS) Stat Exams 12/01/17 18:00 Taken - Progress Progress: unchanged Counseled pt/family regarding: need for follow-up, rad results - Departure Time of Disposition: 18:52 Departure Disposition: Home Clinical Impression: Sprain of left great toe Condition: Stable Critical Care Time: No Referrals: ROMAIN BUTLER NP [Primary Care Provider] - Additional Instructions: You have a sprain of your left big toe. If the radiologist reads your x-ray differently tomorrow, I will call you to let you know. Take Tylenol 1000 mg and ibuprofen 800 mg every 8 hours as needed. Ice the toe and foot for 15 minutes 3 times a day for the next 2-3 days. If her foot and toe have not improved in the next 2-3 days, please contact Dr. Rossi at [phone]. Prescriptions: Codeine Phosphate/APAP #3 [Tylenol #3 Tablet] 1 tab PO Q4-6HPRN PRN #10 tablet PRN Reason: Pain
--- NOTE | 2017-12-02 08:30 | XRAY ---
Indication: Great toe pain following injury. Comparison: None 3 nonweightbearing views of the left foot demonstrates tiny posterior heel spur. No other bony, articular, or soft tissue abnormalities.
== END 2017-12-01 19:18 | disposition home or self-care (01) ==
LOC: ED 16:43
DX: S93.502A Unspecified sprain of left great toe, initial encounter (principal); M79.89 Other specified soft tissue disorders; W22.03XA Walked into furniture, initial encounter
CPT/HCPCS: 73630; 99283

== ENCOUNTER 2018-04-17 22:18 | Emergency (ER) | payer SELFPAY ==
[2018-04-17 22:25] VITALS: O2SAT 98
--- NOTE | 2018-04-17 22:43 | ERPHSYRPT ---
- History of Present Illness Time Seen by Provider: 04/17/18 22:28 Source: patient Exam Limitations: no limitations Physician History: 42 y/o white female presents with her typical migraine headache. did not respond to her imitrex. present for 3 days. has photophobia. not the worst headache she has ever had. Timing/Duration: day(s) (3) Quality: aching, throbbing Head Pain Location: parietal Severity of Pain-Max: moderate Severity of Pain-Current: moderate Recent Head Trauma: no recent headache/trauma, chronic headaches Modifying Factors: Improves With: exposure to light (worsens). Worsens With: immobilization, medication, movement Associated Symptoms: denies symptoms, sensitive to light, No confusion, No dizziness, No fatigue, No fever/chills, No nasal drainage, No neck pain, No stiff neck, No vision changes, No visual disturbance, No weakness Previous symptoms: no prior history Allergies/Adverse Reactions: lorazepam [From Ativan] Adverse Reaction (Verified 12/01/17 17:19) morphine Adverse Reaction (Verified 12/01/17 17:19) Hx Tetanus, Diphtheria Vaccination/Date Given: Yes Hx Influenza Vaccination/Date Given: No Hx Pneumococcal Vaccination/Date Given: No - Review of Systems Constitutional: No Symptoms, No Fever, No Chills Eyes: Photophobia, No Discharge, No Eye Pain, No Eye Redness Ears, Nose, & Throat: No Symptoms, No Ear Pain, No Nose Congestion, No Mouth Swelling, No Throat Swelling, No Painful Swallowing Respiratory: No Symptoms, No Cough, No Dyspnea, No Dyspnea on Exertion (ROLDAN), No Stridor, No Wheezing Cardiac: No Symptoms, No Chest Pain, No Palpitations, No Syncope, No Orthopnea Abdominal/Gastrointestinal: No Symptoms, No Abdominal Pain, No Nausea, No Vomiting, No Diarrhea Genitourinary Symptoms: No Symptoms, No Dysuria, No Frequency, No Hematuria Musculoskeletal: No Symptoms, No Arthralgias, No Back Pain, No Neck Pain, No Deformity, No Fall, No Injury Skin: No Symptoms Neurological: Headache (typical migraine), No Dizziness Psychological: No Symptoms, No Alcohol Abuse, No Drug Abuse, No Anxiety Endocrine: No Symptoms, No Polyuria, No Polydipsia Hematologic/Lymphatic: No Symptoms Immunological/Allergic: No Symptoms All Other Systems: Reviewed and Negative - Past Medical History Pertinent Past Medical History: Yes Neurological History: Migraines ENT History: No Pertinent History Cardiac History: No Pertinent History Respiratory History: No Pertinent History Endocrine Medical History: No Pertinent History Musculoskeletal History: No Pertinent History GI Medical History: No Pertinent History History: No Pertinent History Psycho-Social History: No Pertinent History Female Reproductive Disorders: No Pertinent History - Past Surgical History Past Surgical History: Yes Neuro Surgical History: No Pertinent History Cardiac: No Pertinent History Respiratory: No Pertinent History Gastrointestinal: No Pertinent History, Cholecystectomy Genitourinary: No Pertinent History Musculoskeletal: Orthopedic Surgery Female Surgical History: Hysterectomy, Tubal Ligation, Other Other Surgical History: Ruptured ovarian cyst removal. 3 knee and 2 shoulder surgeries - Social History Smoking Status: Current every day smoker How long have you smoked: 10 years Exposure to second hand smoke: Yes Drug Use: none Patient Lives Alone: No - Nursing Vital Signs Nursing Vital Signs: Initial Vital Signs Temperature 98.9 F 04/17/18 22:24 Pulse Rate 84 04/17/18 22:24 Respiratory Rate 18 04/17/18 22:24 Blood Pressure 143/96 04/17/18 22:24 O2 Sat by Pulse Oximetry 98 04/17/18 22:24 Pain Scale Pain Intensity 9 - Physical Exam General Appearance: mild distress, alert, anxiety Eye Exam: PERRL/EOMI, eyes nml inspection, photophobia Ears, Nose, Throat Exam: normal ENT inspection, moist mucous membranes Neck Exam: normal inspection, non-tender, supple, full range of motion Respiratory Exam: normal breath sounds, lungs clear, airway intact, No chest tenderness, No respiratory distress, No accessory muscle use, No rhonchi, No wheezing, No stridor Cardiovascular Exam: regular rate/rhythm, normal heart sounds, normal peripheral pulses Gastrointestinal/Abdominal Exam: soft, normal bowel sounds, No tenderness, No guarding, No rebound Back Exam: normal inspection, normal range of motion, No CVA tenderness Extremity Exam: normal inspection, normal range of motion, pelvis stable Mental Status Exam: alert, oriented x 3, 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 Exam: normal hearing, normal speech, PERRL Coordination/Gait Exam: normal finger to nose, normal gait Motor/Sensory Exam: no motor deficit, no sensory deficit, no pronator drift Skin Exam: normal color, warm, dry Lymphatic Exam: No adenopathy SpO2 Interpretation: normal SpO2: 98 Oxygen Delivery: Room Air - Course Nursing assessment & vital signs reviewed: Yes - Progress Progress: improved Air Movement: good Progress Note: 04/17/18 22:44 pt states she can take dilaudid without any issues Blood Culture(s) Obtained: No Antibiotics given: No Counseled pt/family regarding: diagnosis, need for follow-up - Departure Time of Disposition: 22:44 Departure Disposition: Home Clinical Impression: Migraine headache Condition: Stable Critical Care Time: No Referrals: ROMAIN BUTLER NP [Primary Care Provider] - Additional Instructions: use your outpatient medications as prescribed. follow up with primary doctor for further management
[2018-04-17] MEDS ORDERED: Phenergan 25 MG INJ IM ONE (22:46)
[2018-04-17] MEDS ORDERED: Hydromorphone 1 mg/ml Ampule IM ONE (22:46)
[2018-04-17] MEDS ORDERED: Phenergan 25 MG INJ ONE (22:51)
[2018-04-17] MEDS ORDERED: Hydromorphone 1 mg/ml Ampule ONE (22:51)
[2018-04-17 23:20] VITALS: BP 134/92; PULSE 76
== END 2018-04-17 23:17 | disposition home or self-care (01) ==
LOC: ED 22:18
DX: G43.909 Migraine, unspecified, not intractable, without status migrainosus (principal)
CPT/HCPCS: 96372; 99284; J1170; J2550

== ENCOUNTER 2018-07-12 13:04 | Emergency (ER) | payer OTHER ==
[2018-07-12] MEDS ORDERED: Sodium Chloride 0.9% 1000 ML 1,000 ML IV STA (13:29)
[2018-07-12] MEDS ORDERED: TORAdol 30 mg Injection IV ONE (13:29)
--- NOTE | 2018-07-12 13:29 | ERPHSYRPT ---
- History of Present Illness Time Seen by Provider: 07/12/18 13:25 Historian: patient Exam Limitations: no limitations Patient Subjective Stated Complaint: here for lower abd pain for 3 days now, with no other symptoms Triage Nursing Assessment: pt alert, walked in holding abd. resp easy, skin w/d/ p. abd soft, tender to palapate Physician History: The patient is a 42-year-old female complaining of worsening left-sided abdominal pain for the last 3 days. He denies fever or chills. She denies nausea, vomiting, or diarrhea. Her past medical history is significant for migraine headaches, kidney stones, hysterectomy, tubal . Timing/Duration: day(s) (3), constant, worse Activities at Onset: none Quality: sharpness, stabbing Abdominal Pain Onset Location: LLQ Pain Radiation: no radiation Severity of Pain-Max: severe Severity of Pain-Current: severe Modifying Factors: Improves With: nothing Associated Symptoms: No diarrhea, No nausea, No vomiting Previous symptoms: no prior history Allergies/Adverse Reactions: levofloxacin [From Levaquin] Allergy (Verified 07/12/18 13:09) lorazepam [From Ativan] Adverse Reaction (Verified 07/12/18 13:09) morphine Adverse Reaction (Verified 07/12/18 13:09) Hx Tetanus, Diphtheria Vaccination/Date Given: Yes Hx Influenza Vaccination/Date Given: No Hx Pneumococcal Vaccination/Date Given: No Immunizations Up to Date: Yes - Review of Systems Constitutional: No Fever, No Chills Eyes: No Symptoms Ears, Nose, & Throat: No Symptoms Respiratory: No Cough, No Dyspnea Cardiac: No Chest Pain, No Edema, No Syncope Abdominal/Gastrointestinal: Abdominal Pain, No Nausea, No Vomiting, No Diarrhea , No Constipation Genitourinary Symptoms: No Dysuria Musculoskeletal: No Back Pain, No Neck Pain Skin: No Rash Neurological: No Dizziness, No Focal Weakness, No Sensory Changes Psychological: No Symptoms Endocrine: No Symptoms Hematologic/Lymphatic: No Symptoms Immunological/Allergic: No Symptoms All Other Systems: Reviewed and Negative - Past Medical History Pertinent Past Medical History: Yes Neurological History: Migraines ENT History: No Pertinent History Cardiac History: No Pertinent History Respiratory History: No Pertinent History Endocrine Medical History: No Pertinent History Musculoskeletal History: No Pertinent History GI Medical History: No Pertinent History History: No Pertinent History Psycho-Social History: No Pertinent History Female Reproductive Disorders: No Pertinent History - Past Surgical History Past Surgical History: Yes Neuro Surgical History: No Pertinent History Cardiac: No Pertinent History Respiratory: No Pertinent History Gastrointestinal: No Pertinent History, Cholecystectomy Genitourinary: No Pertinent History Musculoskeletal: Orthopedic Surgery Female Surgical History: Hysterectomy, Tubal Ligation, Other Other Surgical History: Ruptured ovarian cyst removal. 3 knee and 2 shoulder surgeries - Social History Smoking Status: Current every day smoker How long have you smoked: 10 years Exposure to second hand smoke: Yes Drug Use: none Patient Lives Alone: No - Female History Hx Last Menstrual Period: hyster Hx Now: No - Nursing Vital Signs Nursing Vital Signs: Initial Vital Signs Temperature 97.7 F 07/12/18 13:15 Respiratory Rate 95 H 07/12/18 13:15 Blood Pressure 169/99 07/12/18 13:15 O2 Sat by Pulse Oximetry 99 07/12/18 13:15 Pain Scale Pain Intensity 8 - Physical Exam General Appearance: moderate distress, thin Eye Exam: PERRL/EOMI, eyes nml inspection Ears, Nose, Throat Exam: normal ENT inspection, pharynx normal, moist mucous membranes Neck Exam: normal inspection, non-tender, supple, full range of motion Respiratory Exam: normal breath sounds, lungs clear, No respiratory distress Cardiovascular Exam: regular rate/rhythm, normal heart sounds Gastrointestinal/Abdomen Exam: tenderness (LLQ) Pelvic Exam: not done Rectal Exam: not done Back Exam: normal inspection, normal range of motion, No CVA tenderness, No vertebral tenderness Extremity Exam: normal inspection, normal range of motion, pelvis stable Neurologic Exam: alert, oriented x 3, cooperative, normal mood/affect, nml cerebellar function, sensation nml, No motor deficits Skin Exam: normal color, warm, dry SpO2 Interpretation: normal SpO2: 99 Oxygen Delivery: Room Air - CT Exams Abdomen/Pelvis CT Interpretation: Negative, Tele-radiologist Report (per Dr Morgan), Other ( no acute; nonobstructing left kidney stone; mild constipation.) Ordered Tests: Active Orders 24 hr Category Date Time Status Clean Catch Urine Specimen STAT Care 07/12/18 13:29 Active IV Insertion STAT Care 07/12/18 13:24 Active ABDOMEN AND PELVIS W/0 CONTRAS [CT] Stat Exams 07/12/18 13:56 Taken AMYLASE Stat Lab 07/12/18 13:20 Completed CBC W DIFF Stat Lab 07/12/18 13:20 Completed CMP Stat Lab 07/12/18 13:20 Completed CULTURE,URINE Stat Lab 07/12/18 13:20 Received LIPASE Stat Lab 07/12/18 13:20 Completed Lactic Acid Stat Lab 07/12/18 13:29 Completed UA W/RFX UR CULTURE Stat Lab 07/12/18 13:20 Completed Urine Triage Profile Stat Lab 07/12/18 13:20 Completed Medication Summary Discontinued Medications Generic Name Dose Route Start Last Admin Trade Name Freq PRN Reason Stop Dose Admin Sodium Chloride 1,000 mls @ 999 mls/hr 07/12/18 13:29 07/12/18 13:45 Sodium Chloride 0.9% 1000 Ml IV 07/12/18 14:29 999 mls/hr .Q1H1M STA Administration Sodium Chloride Confirm 07/12/18 13:42 Sodium Chloride 0.9% 1000 Ml Administered 07/12/18 13:43 Dose 1,000 mls @ ud .ROUTE .STK-MED ONE Ketorolac Tromethamine 30 mg 07/12/18 13:29 07/12/18 13:46 Toradol 30 Mg Injection IV 07/12/18 13:30 30 mg STAT ONE Administration Ketorolac Tromethamine Confirm 07/12/18 13:42 Toradol 30 Mg Injection Administered 07/12/18 13:43 Dose 30 mg .ROUTE .STK-MED ONE Lab/Rad Data: Laboratory Result Diagrams 07/12/18 13:20 07/12/18 13:20 Laboratory Results 07/12/18 07/12/18 07/12/18 Range/Units 13:29 13:20 13:20 WBC (4.0-10.5) K/mm3 RBC (4.1-5.4) M/mm3 Hgb (12.0-16.0) gm/dl Hct (35-47) % MCV (78-100) fl MCH (26-32) pg MCHC (32-36) g/dl RDW (11.5-14.0) % Plt Count (150-450) K/mm3 MPV (6-9.5) fl Gran % (36.0-66.0) % Eos # (Auto) (0-0.5) Absolute Lymphs (auto) (1.0-4.6) Absolute Monos (auto) (0.0-1.3) Lymphocytes % (24.0-44.0) % Monocytes % (0.0-12.0) % Eosinophils % (0.00-5.0) % Basophils % (0.0-0.4) % Absolute Granulocytes (1.4-6.9) Basophils # (0-0.4) Sodium (137-145) mmol/L Potassium (3.5-5.1) mmol/L Chloride (98-107) mmol/L Carbon Dioxide (22-30) mmol/L Anion Gap (5-15) MEQ/L BUN (7-17) mg/dL Creatinine (0.52-1.04) mg/dL Estimated GFR ML/MIN Glucose (74-106) mg/dL Lactic Acid 1.7 (0.4-2.0) Calcium (8.4-10.2) mg/dL Total Bilirubin (0.2-1.3) mg/dL AST (14-36) U/L ALT (0-35) U/L Alkaline Phosphatase (38-126) U/L Serum Total Protein (6.3-8.2) g/dL Albumin (3.5-5.0) g/dL Amylase (30-110) U/L Lipase (23-300) U/L Urine Color YELLOW (YELLOW) Urine Appearance SLIGHTLY CLOUDY (CLEAR) Urine pH 5.0 (5-6) Ur Specific [place] 1.021 (1.005-1.025) Urine Protein NEGATIVE (Negative) Urine Ketones NEGATIVE (NEGATIVE) Urine Blood NEGATIVE (0-5) Vincent/ul Urine Nitrite NEGATIVE (NEGATIVE) Urine Bilirubin NEGATIVE (NEGATIVE) Urine Urobilinogen 2 (0-1) mg/dL Ur Leukocyte Esterase TRACE (NEGATIVE) Urine WBC (Auto) 26-50 (0-5) /HPF Urine RBC (Auto) 0-2 (0-2) /HPF U Epithel Cells (Auto) RARE (FEW) /HPF Urine Bacteria (Auto) FEW (NEGATIVE) /HPF Urine Mucus (Auto) SLIGHT (NEGATIVE) /HPF Urine Culture Reflexed YES (NO) Urine Glucose NEGATIVE (NEGATIVE) mg/dL Urine Opiates Level NEGATIVE (NEGATIVE) Ur Methadone NEGATIVE (NEGATIVE) Urine Barbiturates NEGATIVE (NEGATIVE) Ur Phencyclidine (PCP) NEGATIVE (NEGATIVE) Urine Amphetamine NEGATIVE (NEGATIVE) U Benzodiazepine Level NEGATIVE (NEGATIVE) Urine Cocaine NEGATIVE (NEGATIVE) Urine Marijuana (THC) NEGATIVE (NEGATIVE) 07/12/18 07/12/18 Range/Units 13:20 13:20 WBC 9.1 (4.0-10.5) K/mm3 RBC 3.95 L (4.1-5.4) M/mm3 Hgb 13.8 (12.0-16.0) gm/dl Hct 40.3 (35-47) % MCV 102.0 H (78-100) fl MCH 34.9 H (26-32) pg MCHC 34.2 (32-36) g/dl RDW 13.4 (11.5-14.0) % Plt Count 307 (150-450) K/mm3 MPV 9.7 H (6-9.5) fl Gran % 58.4 (36.0-66.0) % Eos # (Auto) 0.16 (0-0.5) Absolute Lymphs (auto) 2.72 (1.0-4.6) Absolute Monos (auto) 0.86 (0.0-1.3) Lymphocytes % 29.9 (24.0-44.0) % Monocytes % 9.5 (0.0-12.0) % Eosinophils % 1.8 (0.00-5.0) % Basophils % 0.4 (0.0-0.4) % Absolute Granulocytes 5.31 (1.4-6.9) Basophils # 0.04 (0-0.4) Sodium 143 (137-145) mmol/L Potassium 3.7 (3.5-5.1) mmol/L Chloride 109 H (98-107) mmol/L Carbon Dioxide 26 (22-30) mmol/L Anion Gap 12.2 (5-15) MEQ/L BUN 10 (7-17) mg/dL Creatinine 0.71 (0.52-1.04) mg/dL Estimated GFR > 60.0 ML/MIN Glucose 91 (74-106) mg/dL Lactic Acid (0.4-2.0) Calcium 9.1 (8.4-10.2) mg/dL Total Bilirubin 0.30 (0.2-1.3) mg/dL AST 20 (14-36) U/L ALT 18 (0-35) U/L Alkaline Phosphatase 45 (38-126) U/L Serum Total Protein 7.2 (6.3-8.2) g/dL Albumin 4.5 (3.5-5.0) g/dL Amylase 68 (30-110) U/L Lipase 88 (23-300) U/L Urine Color (YELLOW) Urine Appearance (CLEAR) Urine pH (5-6) Ur Specific [place] (1.005-1.025) Urine Protein (Negative) Urine Ketones (NEGATIVE) Urine Blood (0-5) Vincent/ul Urine Nitrite (NEGATIVE) Urine Bilirubin (NEGATIVE) Urine Urobilinogen (0-1) mg/dL Ur Leukocyte Esterase (NEGATIVE) Urine WBC (Auto) (0-5) /HPF Urine RBC (Auto) (0-2) /HPF U Epithel Cells (Auto) (FEW) /HPF Urine Bacteria (Auto) (NEGATIVE) /HPF Urine Mucus (Auto) (NEGATIVE) /HPF Urine Culture Reflexed (NO) Urine Glucose (NEGATIVE) mg/dL Urine Opiates Level (NEGATIVE) Ur Methadone (NEGATIVE) Urine Barbiturates (NEGATIVE) Ur Phencyclidine (PCP) (NEGATIVE) Urine Amphetamine (NEGATIVE) U Benzodiazepine Level (NEGATIVE) Urine Cocaine (NEGATIVE) Urine Marijuana (THC) (NEGATIVE) - Progress Progress: unchanged Counseled pt/family regarding: lab results, diagnosis, rad results - Departure Time of Disposition: 14:38 Departure Disposition: Home Clinical Impression: UTI (urinary tract infection) Condition: Stable Critical Care Time: No Referrals: ROMAIN BUTLER NP [Primary Care Provider] - Additional Instructions: You have a urinary tract infection. The CT of the abdomen and pelvis did not show any worrisome problem. You were given Toradol 30 mg, Rocephin 1 g, Nubain 10 mg, and fluids by IV in the ER. Take Keflex 500 mg 4 times a day for 7 days. Take Tylenol 1000 mg every 6-8 hours and ibuprofen 800 mg every 8 hours as needed. Follow-up with your primary medical doctor on Friday or Friday. Prescriptions: Cephalexin Mh 500 mg [Keflex 500 mg] 1 cap PO QID #28 capsule
[2018-07-12] MEDS ORDERED: Sodium Chloride 0.9% 1000 ML 1,000 ML ONE (13:42)
[2018-07-12] MEDS ORDERED: TORAdol 30 mg Injection ONE (13:42)
[2018-07-12 13:44] LABS: BASOPHIL % 0.4 % (0.0-0.4); Basophil (Absolute #) 0.04 (0-0.4); Eosinophil % 1.8 % (0.00-5.0); Eosinophil (Absolute #) 0.16 (0-0.5); Granulocyte Absolute (ANC) 5.31 (1.4-6.9); Granulocytes % 58.4 % (36.0-66.0); Hematocrit 40.3 % (35-47); Hemoglobin 13.8 gm/dl (12.0-16.0); Lymphocyte (Absolute #) 2.72 (1.0-4.6); Lymphocytes % 29.9 % (24.0-44.0); Mean Corpuscular Hemoglobin 34.9 pg (26-32); Mean Corpuscular Hgb Concent. 34.2 g/dl (32-36); Mean Platelet Volume 9.7 fl (6-9.5); Monocyte (Absolute #) 0.86 (0.0-1.3); Monocytes % 9.5 % (0.0-12.0); Platelet Count 307 K/mm3 (150-450); Red Blood Count 3.95 M/mm3 (4.1-5.4); Red Cell Distribution Width 13.4 % (11.5-14.0); White Blood Count 9.1 K/mm3 (4.0-10.5)
[2018-07-12 13:51] LABS: Appearance SLIGHTLY CLOUDY (CLEAR); Bilirubin NEGATIVE (NEGATIVE); Blood NEGATIVE Ery/ul (0-5); Glucose NEGATIVE (NEGATIVE); Ketones NEGATIVE (NEGATIVE); Leukocyte Esterase TRACE (NEGATIVE); Nitrite NEGATIVE (NEGATIVE); Protein,Urine Dip NEGATIVE (Negative); Specific Gravity 1.021 (1.005-1.025); Urobilinogen 2 mg/dL (0-1)
[2018-07-12 14:04] LABS: Amphetamine,Urine NEGATIVE (NEGATIVE); Barbiturate,Urine NEGATIVE (NEGATIVE); Benzodiazepine,Urine NEGATIVE (NEGATIVE); Cocaine,Urine NEGATIVE (NEGATIVE); Methadone,Urine NEGATIVE (NEGATIVE); Opiate,Urine NEGATIVE (NEGATIVE); PCP,Urine NEGATIVE (NEGATIVE); THC,Urine NEGATIVE (NEGATIVE)
[2018-07-12 14:12] LABS: ALBUMIN 4.5 g/dL (3.5-5.0); ALKALINE PHOSPHATASE 45 U/L (38-126); AMYLASE 68 U/L (30-110); ANION GAP 12.2 MEQ/L (5-15); BLOOD UREA NITROGEN 10 mg/dL (7-17); CHLORIDE 109 mmol/L (98-107); Calcium 9.1 mg/dL (8.4-10.2); Carbon Dioxide 26 mmol/L (22-30); Creatinine 1 0.71 mg/dL (0.52-1.04); Glucose 91 mg/dL (74-106); LIPASE 88 U/L (23-300); Potassium 3.7 mmol/L (3.5-5.1); SGOT/AST 20 U/L (14-36); SGPT/ALT 18 U/L (0-35); SODIUM 143 mmol/L (137-145); Total Protein 7.2 g/dL (6.3-8.2)
[2018-07-12] MEDS ORDERED: Nubain 10 MG/ML IV ONE (14:38)
[2018-07-12] MEDS ORDERED: ROCEPHIN 1 Gm-D5w 50 ml Bag** 1 G/50 ML IVPB IV STA (14:38)
[2018-07-12] MEDS ORDERED: Nubain 10 MG/ML ONE (14:42)
[2018-07-12] MEDS ORDERED: ROCEPHIN 1 Gm-D5w 50 ml Bag** 1 G/50 ML IVPB IV ONE (14:42)
[2018-07-12 15:24] VITALS: PULSE 76; O2SAT 98
[2018-07-12] MEDS ORDERED: Hydromorphone 1 mg/ml Ampule IV ONE (15:33)
[2018-07-12] MEDS ORDERED: Hydromorphone 1 mg/ml Ampule ONE (15:34)
[2018-07-12 15:41] VITALS: BP 116/71
--- NOTE | 2018-07-12 20:53 | XRAY ---
Indication: Left lower quadrant pain. Multiple contiguous axial images obtained through the abdomen and pelvis without contrast as ordered. Comparison: October 03, 2017. Lung bases essentially clear. Heart is not enlarged. Noncontrasted stomach and bowel loops appear nonobstructed. Normal appendix. Again previous cholecystectomy and hysterectomy. No free fluid/air. Stable nonobstructing left renal micro-calculus. Remaining liver, pancreas, spleen, adrenal glands, kidneys, ureters, bladder, and aorta appear unremarkable for noncontrast exam. Osseous structures intact. No ventral or inguinal hernias. Impression: 1. Stable nonobstructing left renal micro-calculus. 2. Remaining CT abdomen without contrast exam is negative. Comment: Preliminary interpretation was made by [facility]. No critical discrepancy. CTDI 8.07
== END 2018-07-12 15:54 | disposition home or self-care (01) ==
LOC: ED 13:04
DX: N39.0 Urinary tract infection, site not specified (principal); R10.32 Left lower quadrant pain; F17.200 Nicotine dependence, unspecified, uncomplicated
CPT/HCPCS: 36000; 36415; 74176; 80053; 80307; 81001; 82150; 83605; 83690; 85025; 87077; 87086; 87186; 96360; 96365; 96374; 96375; 99284; J0696; J1170; J1885; J2300

== ENCOUNTER 2018-07-18 20:29 | Emergency (ER) | payer OTHER ==
[2018-07-18] MEDS ORDERED: XYLOCAINE 2% HCL 20 ML MDV ONE (20:50)
[2018-07-18] MEDS: Norco 10/325 MG Tablet PO ONE ×2 (21:03→22:55)
[2018-07-18] MEDS ORDERED: Norco 10/325 MG Tablet ONE ×2 (21:03→22:55)
--- NOTE | 2018-07-18 22:29 | ERPHSYRPT ---
- History of Present Illness Time Seen by Provider: 07/18/18 20:45 Source: patient Exam Limitations: clinical condition Patient Subjective Stated Complaint: pt is alert and oriented. pt is ambulatory with a steady gait. pt states that she was doing dishes and cut herself on a piece of glass. pt has a laceration to the posterior of her hand on the 1st and 2nd finger on the right hand. skin is flapped over. pt is not actively bleeding. Triage Nursing Assessment: see above Physician History: PATIENT WHILE WASHING GLASS DISH, PLACED HER LEFT HAND INSIDE GLASS SUSTAINING LACERATION TO BACK OF RIGHT HAND. DENIES NUMBNESS OR TINGLING IN RIGHT HAND DIGITS. Occurred: just prior to arrival Method of Injury: incised Quality: constant, sharpness Severity of Pain-Max: moderate Severity of Pain-Current: moderate Extremities Pain Location: hand: right Modifying Factors: Improves With: movement ( OF RIGHT INDEX FINGERS) Allergies/Adverse Reactions: levofloxacin [From Levaquin] Allergy (Verified 07/12/18 13:09) lorazepam [From Ativan] Adverse Reaction (Verified 07/12/18 13:09) morphine Adverse Reaction (Verified 07/12/18 13:09) Hx Tetanus, Diphtheria Vaccination/Date Given: Yes (2014) Hx Influenza Vaccination/Date Given: No Hx Pneumococcal Vaccination/Date Given: No Immunizations Up to Date: Yes - Review of Systems Constitutional: No Fever, No Chills Musculoskeletal: Injury Neurological: No Symptoms - Past Medical History Pertinent Past Medical History: Yes Neurological History: Migraines ENT History: No Pertinent History Cardiac History: No Pertinent History Respiratory History: No Pertinent History Endocrine Medical History: No Pertinent History Musculoskeletal History: No Pertinent History GI Medical History: No Pertinent History History: No Pertinent History Psycho-Social History: No Pertinent History Female Reproductive Disorders: No Pertinent History - Past Surgical History Past Surgical History: Yes Neuro Surgical History: No Pertinent History Cardiac: No Pertinent History Respiratory: No Pertinent History Gastrointestinal: No Pertinent History, Cholecystectomy Genitourinary: No Pertinent History Musculoskeletal: Orthopedic Surgery Female Surgical History: Hysterectomy, Tubal Ligation, Other Other Surgical History: Ruptured ovarian cyst removal. 3 knee and 2 shoulder surgeries - Social History Smoking Status: Current every day smoker How long have you smoked: 14 years Exposure to second hand smoke: Yes Drug Use: none Patient Lives Alone: No - Female History Hx Now: No - Nursing Vital Signs Nursing Vital Signs: Initial Vital Signs Temperature 98.6 F 07/18/18 20:34 Respiratory Rate 16 07/18/18 20:34 Blood Pressure 140/89 07/18/18 20:34 O2 Sat by Pulse Oximetry 100 07/18/18 20:34 Pain Scale Pain Intensity 8 - Physical Exam General Appearance: alert Hand Exam: laceration (THERE IS A C- SHAPED 1.5CM SUPERFICIAL LACERATION DISTAL 2ND METACARPAL DORSUM RIGHT HAND, THERE IS A 8MM C-SHAPED LACERATION DISTAL RIGHT 3RD METACARPAL.), soft tissue tenderness (NO EVIDENCE OF TENDON INVOLVEMENT, FULL RANGE OF MOTION ALL DIGITS, SENSATION INTACT TO LIGHT TOUCH AND PIN PRICK) Neuro/Tendon Exam: normal sensation Mental Status Exam: alert SpO2 Interpretation: normal SpO2: 100 Oxygen Delivery: Room Air Procedures - Laceration/Wound Repair Right Hand Wound Location: Right, hand Wound Length (cm): 2.3 Wound's Depth, Shape: superficial Wound Explored: clean Irrigated: Yes Hibiclens Prep: Yes Anesthesia: local, 2% Lidocaine Volume Anesthetic (ccs): 5 Wound Repaired With: sutures Suture Size/Type: 5-0, nylon Number of Sutures: 16 Sterile Dressing Applied?: Yes - Radiology Exams Left Hand X-ray Interpretation: Interpreted by me, Negative (NO RADIO-OPAQUE FOREIGN BODY) , No Fracture Ordered Tests: Active Orders 24 hr Category Date Time Status HAND (MINIMUM 3 VIEWS) Stat Exams 07/18/18 20:50 Taken Medication Summary Discontinued Medications Generic Name Dose Route Start Last Admin Trade Name Diana PRN Reason Stop Dose Admin Hydrocodone Bitart/Acetaminophen 1 tab 07/18/18 20:49 07/18/18 21:03 [place] 10/325 Mg Tablet PO 07/18/18 20:50 1 tab STAT ONE Administration Hydrocodone Bitart/Acetaminophen Confirm 07/18/18 21:03 [place] 10/325 Mg Tablet Administered 07/18/18 21:04 Dose 1 tab .ROUTE .STK-MED ONE Lidocaine HCl Confirm 07/18/18 20:50 Xylocaine 2% Hcl 20 Ml Mdv Administered 07/18/18 20:51 Dose 4 ml .ROUTE .STK-MED ONE - Progress Progress Note: 07/18/18 22:33 ADMINISTERED [place] 10/325 ORALLY Counseled pt/family regarding: diagnosis, rad results - Departure Time of Disposition: 22:45 Departure Disposition: Home Clinical Impression: LACERATIONS RIGHT HAND Condition: Stable Critical Care Time: No Referrals: ROMAIN BUTLER NP [Primary Care Provider] - Additional Instructions: MAINTAIN ALUMINUM SPLINT BELOW RIGHT INDEX FINGER FOR 10 DAYS. HAVE STITCHES REMOVED AT 12 DAYS. [place] 5/325 EVERY 6 HOURS NEEDED FOR PAIN. WATCH FOR SIGNS OF INFECTION, REDNESS, SWELLING OR DRAINAGE. ANTIBIOTIC AUGMENTIN 875MG TWICE DAILY FOR 7 DAYS TO BEGIN AFTER FINISHING KEFLEX ANTIBIOTIC. FOLLOWUP WITH YOUR PRIMARY CARE PROVIDER IN 1 WEEK. Prescriptions: Hydrocodone Bit/Acetaminophen [[place] 5-325 Tablet] 1 each PO Q4HPRN PRN #10 tablet MDD 4 PRN Reason: Pain Amox Tr/Potass Clav. 875 mg [Augmentin 875-125 Tablet] 875 mg PO BID #14 tablet
[2018-07-18 22:43] VITALS: BP 91/58; PULSE 58
[2018-07-18 22:45] VITALS: O2SAT 100
--- NOTE | 2018-07-19 08:55 | XRAY ---
Indication: Laceration. Comparison: None 3 views of the right hand negative for radiopaque foreign body. No bony, articular, or soft tissue abnormalities.
== END 2018-07-18 23:00 | disposition home or self-care (01) ==
LOC: ED 20:29
DX: W25.XXXA Contact with sharp glass, initial encounter (principal); Y93.G1 Activity, food preparation and clean up
CPT/HCPCS: 12001; 73130; 99283; A9270-GY

== ENCOUNTER 2018-09-24 22:16 | Emergency (ER) | payer MEDICAID, OTHER ==
[2018-09-24] MEDS ORDERED: Sodium Chloride 0.9% 1000 ML 1,000 ML IV STA (22:55)
[2018-09-24] MEDS ORDERED: TORAdol 30 mg Injection IV ONE (23:01)
[2018-09-24 23:07] LABS: Appearance CLEAR (CLEAR); Bilirubin NEGATIVE (NEGATIVE); Blood NEGATIVE Ery/ul (0-5); Glucose NEGATIVE (NEGATIVE); Ketones NEGATIVE (NEGATIVE); Leukocyte Esterase NEGATIVE (NEGATIVE); Mucus SLIGHT /HPF (NEGATIVE); Nitrite NEGATIVE (NEGATIVE); Protein,Urine Dip NEGATIVE (Negative); Specific Gravity 1.004 (1.005-1.025); Urobilinogen NEGATIVE mg/dL (0-1)
[2018-09-25] MEDS ORDERED: Sodium Chloride 0.9% 1000 ML 1,000 ML ONE (00:03)
[2018-09-25] MEDS ORDERED: TORAdol 30 mg Injection ONE (00:03)
[2018-09-25 00:17] VITALS: O2SAT 100
[2018-09-25 00:19] LABS: BASOPHIL % 0.6 % (0.0-0.4); Basophil (Absolute #) 0.06 (0-0.4); Eosinophil % 3.3 % (0.00-5.0); Eosinophil (Absolute #) 0.34 (0-0.5); Granulocyte Absolute (ANC) 5.18 (1.4-6.9); Hematocrit 41.4 % (35-47); Lymphocytes % 36.7 % (24.0-44.0); Mean Cell Volume 102.2 fl (78-100); Mean Corpuscular Hemoglobin 34.5 pg (26-32); Mean Corpuscular Hgb Concent. 33.8 g/dl (32-36); Mean Platelet Volume 9.8 fl (6-9.5); Monocyte (Absolute #) 0.97 (0.0-1.3); Monocytes % 9.4 % (0.0-12.0); Platelet Count 313 K/mm3 (150-450); Red Blood Count 4.05 M/mm3 (4.1-5.4); Red Cell Distribution Width 12.7 % (11.5-14.0); White Blood Count 10.4 K/mm3 (4.0-10.5)
[2018-09-25 00:45] LABS: ALBUMIN 4.4 g/dL (3.5-5.0); ALKALINE PHOSPHATASE 52 U/L (38-126); ANION GAP 11.8 MEQ/L (5-15); BLOOD UREA NITROGEN 7 mg/dL (7-17); CHLORIDE 106 mmol/L (98-107); Calcium 9.3 mg/dL (8.4-10.2); Carbon Dioxide 28 mmol/L (22-30); Creatinine 1 0.77 mg/dL (0.52-1.04); Glucose 83 mg/dL (74-106); LIPASE 80 U/L (23-300); Potassium 3.8 mmol/L (3.5-5.1); SGOT/AST 25 U/L (14-36); SGPT/ALT 17 U/L (0-35); SODIUM 141 mmol/L (137-145); Total Protein 7.2 g/dL (6.3-8.2)
--- NOTE | 2018-09-25 01:01 | ERPHSYRPT ---
- History of Present Illness Source: patient Exam Limitations: no limitations Patient Subjective Stated Complaint: PT C/O LEFT LOWER ABD PAIN AND LEFT LOWER BACK PAIN PT STATES "I THINK I HAVE ANOTHER KIDNEY STONE". DENIES CHANGES IN URINATION, DENIES FEVER. Triage Nursing Assessment: PINK/WARM/DRY, RESP EASY, A&OX4, SLOW HUNCHED GAIT, PT SITS WITH LEGS DRAWN IN. Physician History: Pt is a 42 y/o female that presented to the ED with severe L CVA pain. Pt states, had a kidney stone in the past, and "it feels just the same". Pt states , started a day before, and today is radiating to the LLQ. Pt denies any dysuria, frequency and urgency. No F/C/S. No SOB or cough. No chest discomfort or palpitations. Timing/Duration: yesterday Activites at Onset: none Quality: aching, cramping Onset Location: left flank Pain Radiation: LLQ Severity of Pain-Max: severe Severity of Pain-Current: severe Prior abdominal problems: similar symptoms Associated Symptoms: denies symptoms Allergies/Adverse Reactions: levofloxacin [From Levaquin] Allergy (Verified 09/24/18 22:45) lorazepam [From Ativan] Adverse Reaction (Verified 09/24/18 22:45) HALLUCINATIONS morphine Adverse Reaction (Verified 09/24/18 22:45) SCRATCHING Hx Tetanus, Diphtheria Vaccination/Date Given: Yes Hx Influenza Vaccination/Date Given: No Hx Pneumococcal Vaccination/Date Given: No - Review of Systems Constitutional: No Fever, No Chills Respiratory: No Cough, No Dyspnea Cardiac: No Chest Pain, No Edema, No Syncope Abdominal/Gastrointestinal: Abdominal Pain Genitourinary Symptoms: Flank Pain (on the left), No Dysuria Musculoskeletal: Back Pain (on the left) Neurological: No Dizziness, No Focal Weakness, No Sensory Changes - Past Medical History Pertinent Past Medical History: No Neurological History: Migraines ENT History: No Pertinent History Cardiac History: No Pertinent History Respiratory History: No Pertinent History Endocrine Medical History: No Pertinent History Musculoskeletal History: No Pertinent History GI Medical History: No Pertinent History History: No Pertinent History Psycho-Social History: No Pertinent History Female Reproductive Disorders: No Pertinent History - Past Surgical History Past Surgical History: Yes Neuro Surgical History: No Pertinent History Cardiac: No Pertinent History Respiratory: No Pertinent History Gastrointestinal: Cholecystectomy Genitourinary: No Pertinent History Musculoskeletal: Orthopedic Surgery Female Surgical History: Hysterectomy, Tubal Ligation, Other Other Surgical History: Ruptured ovarian cyst removal. 3 knee and 2 shoulder surgeries - Social History Smoking Status: Current every day smoker How long have you smoked: 14 years Exposure to second hand smoke: Yes Drug Use: none Patient Lives Alone: No - Female History Hx Last Menstrual Period: HYSTERECTOMY Hx Now: No - Nursing Vital Signs Nursing Vital Signs: Initial Vital Signs Temperature 97.6 F 09/24/18 22:45 Pulse Rate 95 H 09/24/18 22:45 Respiratory Rate 16 09/24/18 22:45 Blood Pressure 153/92 09/24/18 22:45 Pain Scale Pain Intensity 8 - Physical Exam General Appearance: moderate distress (secondary to pain) Eye Exam: PERRL/EOMI, eyes nml inspection Ears, Nose, Throat Exam: normal ENT inspection, TMs normal, pharynx normal, moist mucous membranes Neck Exam: normal inspection, non-tender, supple, full range of motion Respiratory Exam: normal breath sounds, lungs clear, No respiratory distress Cardiovascular Exam: regular rate/rhythm, normal heart sounds, normal peripheral pulses Gastrointestinal/Abdomen Exam: soft, normal bowel sounds Back Exam: CVA tenderness (on the L, with radiation and discomfort in LLQ) Extremity Exam: normal inspection, normal range of motion, pelvis stable Neurologic Exam: alert, oriented x 3, cooperative, 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 tiny non obstructing L renal calculus.) Ordered Tests: Active Orders 24 hr Category Date Time Status IV Insertion STAT Care 09/24/18 22:55 Active NPO (ED) STAT Care 09/24/18 22:55 Active ABDOMEN AND PELVIS W/0 CONTRAS [CT] Stat Exams 09/24/18 22:56 Taken CBC W DIFF Stat Lab 09/24/18 22:55 Completed CMP Stat Lab 09/24/18 22:55 Completed HCG,QUALITATIVE URINE Stat Lab 09/24/18 22:59 Completed LIPASE Stat Lab 09/24/18 22:55 Completed UA W/RFX UR CULTURE Stat Lab 09/24/18 22:59 Completed Medication Summary Discontinued Medications Generic Name Dose Route Start Last Admin Trade Name Freq PRN Reason Stop Dose Admin Sodium Chloride 1,000 mls @ 999 mls/hr 09/24/18 22:55 09/25/18 00:04 Sodium Chloride 0.9% 1000 Ml IV 09/24/18 23:55 999 mls/hr .Q1H1M STA Administration Sodium Chloride Confirm 09/25/18 00:03 Sodium Chloride 0.9% 1000 Ml Administered 09/25/18 00:04 Dose 1,000 mls @ ud .ROUTE .STK-MED ONE Ketorolac Tromethamine 30 mg 09/24/18 23:01 09/25/18 00:05 Toradol 30 Mg Injection IV 09/24/18 23:02 30 mg STAT ONE Administration Ketorolac Tromethamine Confirm 09/25/18 00:03 Toradol 30 Mg Injection Administered 09/25/18 00:04 Dose 30 mg .ROUTE .STK-MED ONE Lab/Rad Data: Laboratory Result Diagrams 09/24/18 22:55 09/24/18 22:55 Laboratory Results 09/24/18 09/24/18 09/24/18 Range/Units 22:59 22:59 22:55 WBC (4.0-10.5) K/mm3 RBC (4.1-5.4) M/mm3 Hgb (12.0-16.0) gm/dl Hct (35-47) % MCV (78-100) fl MCH (26-32) pg MCHC (32-36) g/dl RDW (11.5-14.0) % Plt Count (150-450) K/mm3 MPV (6-9.5) fl Gran % (36.0-66.0) % Eos # (Auto) (0-0.5) Absolute Lymphs (auto) (1.0-4.6) Absolute Monos (auto) (0.0-1.3) Lymphocytes % (24.0-44.0) % Monocytes % (0.0-12.0) % Eosinophils % (0.00-5.0) % Basophils % (0.0-0.4) % Absolute Granulocytes (1.4-6.9) Basophils # (0-0.4) Sodium 141 (137-145) mmol/L Potassium 3.8 (3.5-5.1) mmol/L Chloride 106 (98-107) mmol/L Carbon Dioxide 28 (22-30) mmol/L Anion Gap 11.8 (5-15) MEQ/L BUN 7 (7-17) mg/dL Creatinine 0.77 (0.52-1.04) mg/dL Estimated GFR > 60.0 ML/MIN Glucose 83 (74-106) mg/dL Calcium 9.3 (8.4-10.2) mg/dL Total Bilirubin 0.30 (0.2-1.3) mg/dL AST 25 (14-36) U/L ALT 17 (0-35) U/L Alkaline Phosphatase 52 (38-126) U/L Serum Total Protein 7.2 (6.3-8.2) g/dL Albumin 4.4 (3.5-5.0) g/dL Lipase 80 (23-300) U/L Urine Color STRAW (YELLOW) Urine Appearance CLEAR (CLEAR) Urine pH 7.0 (5-6) Ur Specific [place] 1.004 (1.005-1.025) Urine Protein NEGATIVE (Negative) Urine Ketones NEGATIVE (NEGATIVE) Urine Blood NEGATIVE (0-5) Vincent/ul Urine Nitrite NEGATIVE (NEGATIVE) Urine Bilirubin NEGATIVE (NEGATIVE) Urine Urobilinogen NEGATIVE (0-1) mg/dL Ur Leukocyte Esterase NEGATIVE (NEGATIVE) Urine WBC (Auto) NONE (0-5) /HPF Urine RBC (Auto) NONE (0-2) /HPF U Epithel Cells (Auto) NONE (FEW) /HPF Urine Bacteria (Auto) NONE (NEGATIVE) /HPF Urine Mucus (Auto) SLIGHT (NEGATIVE) /HPF Urine Culture Reflexed NO (NO) Urine Glucose NEGATIVE (NEGATIVE) mg/dL Urine HCG, Qual NEGATIVE (Negative) 09/24/18 Range/Units 22:55 WBC 10.4 (4.0-10.5) K/mm3 RBC 4.05 L (4.1-5.4) M/mm3 Hgb 14.0 (12.0-16.0) gm/dl Hct 41.4 (35-47) % MCV 102.2 H (78-100) fl MCH 34.5 H (26-32) pg MCHC 33.8 (32-36) g/dl RDW 12.7 (11.5-14.0) % Plt Count 313 (150-450) K/mm3 MPV 9.8 H (6-9.5) fl Gran % 50.0 (36.0-66.0) % Eos # (Auto) 0.34 (0-0.5) Absolute Lymphs (auto) 3.80 (1.0-4.6) Absolute Monos (auto) 0.97 (0.0-1.3) Lymphocytes % 36.7 (24.0-44.0) % Monocytes % 9.4 (0.0-12.0) % Eosinophils % 3.3 (0.00-5.0) % Basophils % 0.6 (0.0-0.4) % Absolute Granulocytes 5.18 (1.4-6.9) Basophils # 0.06 (0-0.4) Sodium (137-145) mmol/L Potassium (3.5-5.1) mmol/L Chloride (98-107) mmol/L Carbon Dioxide (22-30) mmol/L Anion Gap (5-15) MEQ/L BUN (7-17) mg/dL Creatinine (0.52-1.04) mg/dL Estimated GFR ML/MIN Glucose (74-106) mg/dL Calcium (8.4-10.2) mg/dL Total Bilirubin (0.2-1.3) mg/dL AST (14-36) U/L ALT (0-35) U/L Alkaline Phosphatase (38-126) U/L Serum Total Protein (6.3-8.2) g/dL Albumin (3.5-5.0) g/dL Lipase (23-300) U/L Urine Color (YELLOW) Urine Appearance (CLEAR) Urine pH (5-6) Ur Specific [place] (1.005-1.025) Urine Protein (Negative) Urine Ketones (NEGATIVE) Urine Blood (0-5) Vincent/ul Urine Nitrite (NEGATIVE) Urine Bilirubin (NEGATIVE) Urine Urobilinogen (0-1) mg/dL Ur Leukocyte Esterase (NEGATIVE) Urine WBC (Auto) (0-5) /HPF Urine RBC (Auto) (0-2) /HPF U Epithel Cells (Auto) (FEW) /HPF Urine Bacteria (Auto) (NEGATIVE) /HPF Urine Mucus (Auto) (NEGATIVE) /HPF Urine Culture Reflexed (NO) Urine Glucose (NEGATIVE) mg/dL Urine HCG, Qual (Negative) - Progress Progress: improved Air Movement: good Progress Note: 09/25/18 01:03 Pt had labs done, and CT of abdomen and pelvis was ordered. CT was negative for obstructing uropathy or any obstructing stone. Urine was clean, as well as labs. Pt did get Toradol IV, and IVF. I did explain to the pt that she is not having kidney stone passing now, and no UTI. She should f/u with her PCP for continued work up for the reason she has the back pain on the L. Blood Culture(s) Obtained: No Antibiotics given: No Will see patient in: office Counseled pt/family regarding: need for follow-up - Departure Time of Disposition: 01:05 Departure Disposition: Home Clinical Impression: Left flank pain Condition: Stable Critical Care Time: No Referrals: ROMAIN BUTLER NP [Primary Care Provider] - Additional Instructions: F/U with PCP to continue work up for flank pain.
[2018-09-25 01:05] VITALS: BP 125/84; PULSE 64
--- NOTE | 2018-09-25 09:13 | XRAY ---
Indication: Left-sided abdominal pain. History kidney stone. Multiple contiguous axial images obtained through the abdomen and pelvis without contrast as ordered. Comparison: July 12, 2018. Lung bases demonstrates minimal bibasilar dependent atelectasis. No infiltrate or effusion. Heart is not enlarged. Noncontrasted stomach and bowel loops appear nonobstructed. Normal appendix. There is now mild diffuse scattered colonic fecal debris throughout. Again cholecystectomy and hysterectomy. No free fluid/air. Stable nonobstructing left renal punctate calculus. Remaining liver, pancreas, spleen, adrenal glands, kidneys, ureters, bladder, uterus, and aorta appear unremarkable for noncontrast exam. Impression: 1. New fecal stasis without obstruction. 2. Stable nonobstructing left renal micro-calculus. 3. Remaining CT abdomen/pelvis without contrast exam is negative. Comment: Preliminary interpretation was made by [facility]. No critical discrepancy. CT DI 8.56
== END 2018-09-25 01:13 | disposition home or self-care (01) ==
LOC: ED 22:16
DX: R10.9 Unspecified abdominal pain (principal)
CPT/HCPCS: 36000; 36415; 74176; 80053; 81001; 83690; 84703; 85025; 96360; 96374; 99284; J1885

== ENCOUNTER 2019-01-26 13:27 | Emergency (ER) | payer MEDICAID ==
[2019-01-26 13:51] VITALS: O2SAT 99
[2019-01-26 14:11] LABS: BASOPHIL % 0.3 % (0.0-0.4); Basophil (Absolute #) 0.04 (0-0.4); Eosinophil % 1.2 % (0.00-5.0); Eosinophil (Absolute #) 0.14 (0-0.5); Granulocyte Absolute (ANC) 8.48 (1.4-6.9); Hematocrit 48.8 % (35-47); Hemoglobin 16.8 gm/dl (12.0-16.0); Lymphocyte (Absolute #) 2.31 (1.0-4.6); Lymphocytes % 19.1 % (24.0-44.0); Mean Cell Volume 103.8 fl (78-100); Mean Corpuscular Hemoglobin 35.7 pg (26-32); Mean Corpuscular Hgb Concent. 34.4 g/dl (32-36); Mean Platelet Volume 9.6 fl (6-9.5); Monocyte (Absolute #) 1.14 (0.0-1.3); Monocytes % 9.4 % (0.0-12.0); Platelet Count 337 K/mm3 (150-450); Red Cell Distribution Width 13.1 % (11.5-14.0); White Blood Count 12.1 K/mm3 (4.0-10.5)
[2019-01-26 14:15] LABS: Appearance SLIGHTLY CLOUDY (CLEAR); Bacteria MODERATE /HPF (NEGATIVE); Bilirubin NEGATIVE (NEGATIVE); Blood NEGATIVE Ery/ul (0-5); Glucose NEGATIVE (NEGATIVE); Ketones NEGATIVE (NEGATIVE); Leukocyte Esterase TRACE (NEGATIVE); Mucus SLIGHT /HPF (NEGATIVE); Nitrite NEGATIVE (NEGATIVE); Protein,Urine Dip NEGATIVE (Negative); Specific Gravity 1.003 (1.005-1.025); Urobilinogen NEGATIVE mg/dL (0-1)
[2019-01-26] MEDS ORDERED: ROCEPHIN 1 Gm-D5w 50 ml Bag** 1 G/50 ML IVPB IV STA (14:24)
[2019-01-26] MEDS ORDERED: Rocephin 1000 MG INJ IM ONE (14:26)
[2019-01-26 14:27] LABS: ALBUMIN 4.8 g/dL (3.5-5.0); ALKALINE PHOSPHATASE 68 U/L (38-126); ANION GAP 11.9 MEQ/L (5-15); BLOOD UREA NITROGEN 8 mg/dL (7-17); CHLORIDE 106 mmol/L (98-107); Calcium 10.4 mg/dL (8.4-10.2); Carbon Dioxide 28 mmol/L (22-30); Creatinine 1 0.82 mg/dL (0.52-1.04); Glucose 97 mg/dL (74-106); Potassium 4.4 mmol/L (3.5-5.1); SGOT/AST 25 U/L (14-36); SGPT/ALT 20 U/L (0-35); SODIUM 142 mmol/L (137-145); Total Protein 8.3 g/dL (6.3-8.2)
[2019-01-26 14:28] VITALS: BP 129/95; PULSE 89
[2019-01-26] MEDS ORDERED: Rocephin 1000 MG INJ ONE (14:28)
[2019-01-26] MEDS ORDERED: XYLOCAINE 1% HCL 20 ML MDV ONE (14:29)
[2019-01-26 14:36] LABS: Amphetamine,Urine NEGATIVE (NEGATIVE); Barbiturate,Urine NEGATIVE (NEGATIVE); Benzodiazepine,Urine NEGATIVE (NEGATIVE); Cocaine,Urine NEGATIVE (NEGATIVE); Methadone,Urine NEGATIVE (NEGATIVE); Opiate,Urine NEGATIVE (NEGATIVE); PCP,Urine NEGATIVE (NEGATIVE); THC,Urine NEGATIVE (NEGATIVE)
[2019-01-26] MEDS ORDERED: TORAdol 30 mg Injection IV ONE (14:44)
[2019-01-26] MEDS ORDERED: TORAdol 30 mg Injection IM ONE (14:49)
--- NOTE | 2019-01-26 14:50 | ERPHSYRPT ---
- History of Present Illness Source: patient Exam Limitations: no limitations Patient Subjective Stated Complaint: states headache all day today. states is worse than her regular migraines. also feels shaky today Triage Nursing Assessment: ambulated to room per self. skin w/d, color normal. patient holding head. Physician History: Pt is a 43 y/o female that woke up with SANTANA today. Pt states that she is not feeling "right". She states, she feels that her heart is beating fast, and she is in general unwell. She is taking Maxalt for her SANTANA, but this headache is not like her regular ones. Pt denies chest pain. No dysuria, frequency and urgency. No N/V/D or abdominal pain. No change in vision, no LOC. No head injury. Timing/Duration: today Quality: pressure, throbbing Head Pain Location: global Severity of Pain-Max: moderate Severity of Pain-Current: moderate Recent Head Trauma: no recent headache/trauma Modifying Factors: Improves With: cold therapy, medication Associated Symptoms: weakness, other (palpitations) Allergies/Adverse Reactions: levofloxacin [From Levaquin] Allergy (Verified 01/26/19 13:43) lorazepam [From Ativan] Adverse Reaction (Verified 01/26/19 13:43) HALLUCINATIONS morphine Adverse Reaction (Verified 01/26/19 13:43) SCRATCHING Hx Tetanus, Diphtheria Vaccination/Date Given: Yes Hx Influenza Vaccination/Date Given: No Hx Pneumococcal Vaccination/Date Given: No - Review of Systems Constitutional: Fatigue, Malaise Eyes: No Symptoms Ears, Nose, & Throat: No Symptoms Respiratory: No Cough, No Dyspnea Cardiac: No Chest Pain, No Edema, No Syncope Abdominal/Gastrointestinal: No Abdominal Pain, No Nausea, No Vomiting, No Diarrhea Genitourinary Symptoms: No Dysuria Musculoskeletal: No Back Pain, No Neck Pain Neurological: Headache - Past Medical History Pertinent Past Medical History: No Neurological History: Migraines ENT History: No Pertinent History Cardiac History: No Pertinent History Respiratory History: No Pertinent History Endocrine Medical History: No Pertinent History Musculoskeletal History: No Pertinent History GI Medical History: No Pertinent History History: No Pertinent History Psycho-Social History: Anxiety, Panic Disorder Female Reproductive Disorders: No Pertinent History - Past Surgical History Past Surgical History: Yes Neuro Surgical History: No Pertinent History Cardiac: No Pertinent History Respiratory: No Pertinent History Gastrointestinal: Cholecystectomy Genitourinary: No Pertinent History Musculoskeletal: Orthopedic Surgery Female Surgical History: Hysterectomy, Tubal Ligation, Other Other Surgical History: Ruptured ovarian cyst removal. 3 knee and 2 shoulder surgeries - Social History Smoking Status: Current every day smoker How long have you smoked: 14 Exposure to second hand smoke: Yes Drug Use: none Patient Lives Alone: No - Female History Hx Now: No - Nursing Vital Signs Nursing Vital Signs: Initial Vital Signs Temperature 98 F 01/26/19 13:38 Pulse Rate 96 H 01/26/19 13:38 Respiratory Rate 16 01/26/19 13:38 Blood Pressure 148/98 01/26/19 13:38 O2 Sat by Pulse Oximetry 99 01/26/19 13:38 Pain Scale Pain Intensity 8 - Physical Exam General Appearance: moderate distress Eye Exam: PERRL/EOMI Ears, Nose, Throat Exam: normal ENT inspection, moist mucous membranes Neck Exam: normal inspection, supple, full range of motion, No meningismus Respiratory Exam: normal breath sounds, lungs clear Cardiovascular Exam: regular rate/rhythm, normal heart sounds Gastrointestinal/Abdominal Exam: soft, No tenderness, No distention Back Exam: normal inspection, normal range of motion Extremity Exam: normal inspection Mental Status Exam: alert, oriented x 3, 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 Exam: normal hearing, normal speech, PERRL Coordination/Gait Exam: normal cerebellar function Motor/Sensory Exam: no motor deficit, no sensory deficit SpO2 Interpretation: normal SpO2: 99 O2 Delivery: Room Air - Course Nursing assessment & vital signs reviewed: Yes Ordered Tests: Active Orders 24 hr Category Date Time Status CBC W DIFF Stat Lab 01/26/19 14:05 Completed CMP Stat Lab 01/26/19 14:05 Completed TROPONIN Q3H Lab 01/26/19 14:05 Received TROPONIN Q3H Lab 01/26/19 17:00 Ordered TROPONIN Q3H Lab 01/26/19 20:00 Ordered TROPONIN Q3H Lab 01/26/19 23:00 Ordered TROPONIN Q3H Lab 01/27/19 02:00 Ordered UA W/RFX UR CULTURE Stat Lab 01/26/19 13:48 Completed Urine Triage Profile Stat Lab 01/26/19 13:48 Completed Medication Summary Discontinued Medications Generic Name Dose Route Start Last Admin Trade Name Freq PRN Reason Stop Dose Admin Ceftriaxone Sodium 1,000 mg 01/26/19 14:26 01/26/19 14:37 Rocephin 1000 Mg Inj IM 01/26/19 14:27 1,000 mg STAT ONE Administration Ceftriaxone Sodium Confirm 01/26/19 14:28 Rocephin 1000 Mg Inj Administered 01/26/19 14:29 Dose 1,000 mg .ROUTE .STK-MED ONE Ceftriaxone Sodium/Dextrose 1 g in 50 mls @ 100 mls/hr 01/26/19 14:24 14:32 Rocephin 1 Gm-D5w 50 Ml Bag IV 01/26/19 14:53 Not Given STAT STA Ketorolac Tromethamine 30 mg 01/26/19 14:44 Toradol 30 Mg Injection IV 01/26/19 14:45 STAT ONE Lidocaine HCl Confirm 01/26/19 14:29 Xylocaine 1% Hcl 20 Ml Mdv Administered 01/26/19 14:30 Dose 3 ml .ROUTE .STK-MED ONE Lab/Rad Data: Laboratory Result Diagrams 01/26/19 14:05 01/26/19 14:05 Laboratory Results 01/26/19 01/26/19 01/26/19 Range/Units 14:05 14:05 13:48 WBC 12.1 H (4.0-10.5) K/mm3 RBC 4.70 (4.1-5.4) M/mm3 Hgb 16.8 H (12.0-16.0) gm/dl Hct 48.8 H (35-47) % MCV 103.8 H (78-100) fl MCH 35.7 H (26-32) pg MCHC 34.4 (32-36) g/dl RDW 13.1 (11.5-14.0) % Plt Count 337 (150-450) K/mm3 MPV 9.6 H (6-9.5) fl Gran % 70.0 H (36.0-66.0) % Eos # (Auto) 0.14 (0-0.5) Absolute Lymphs (auto) 2.31 (1.0-4.6) Absolute Monos (auto) 1.14 (0.0-1.3) Lymphocytes % 19.1 L (24.0-44.0) % Monocytes % 9.4 (0.0-12.0) % Eosinophils % 1.2 (0.00-5.0) % Basophils % 0.3 (0.0-0.4) % Absolute Granulocytes 8.48 H (1.4-6.9) Basophils # 0.04 (0-0.4) Sodium 142 (137-145) mmol/L Potassium 4.4 (3.5-5.1) mmol/L Chloride 106 (98-107) mmol/L Carbon Dioxide 28 (22-30) mmol/L Anion Gap 11.9 (5-15) MEQ/L BUN 8 (7-17) mg/dL Creatinine 0.82 (0.52-1.04) mg/dL Estimated GFR > 60.0 ML/MIN Glucose 97 (74-106) mg/dL Calcium 10.4 H (8.4-10.2) mg/dL Total Bilirubin 0.40 (0.2-1.3) mg/dL AST 25 (14-36) U/L ALT 20 (0-35) U/L Alkaline Phosphatase 68 (38-126) U/L Serum Total Protein 8.3 H (6.3-8.2) g/dL Albumin 4.8 (3.5-5.0) g/dL Urine Color (YELLOW) Urine Appearance (CLEAR) Urine pH (5-6) Ur Specific [place] (1.005-1.025) Urine Protein (Negative) Urine Ketones (NEGATIVE) Urine Blood (0-5) Vincent/ul Urine Nitrite (NEGATIVE) Urine Bilirubin (NEGATIVE) Urine Urobilinogen (0-1) mg/dL Ur Leukocyte Esterase (NEGATIVE) Urine WBC (Auto) (0-5) /HPF Urine RBC (Auto) (0-2) /HPF U Epithel Cells (Auto) (FEW) /HPF Urine Bacteria (Auto) (NEGATIVE) /HPF Urine Mucus (Auto) (NEGATIVE) /HPF Urine Culture Reflexed (NO) Urine Glucose (NEGATIVE) mg/dL Urine Opiates Level NEGATIVE (NEGATIVE) Ur Methadone NEGATIVE (NEGATIVE) Urine Barbiturates NEGATIVE (NEGATIVE) Ur Phencyclidine (PCP) NEGATIVE (NEGATIVE) Urine Amphetamine NEGATIVE (NEGATIVE) U Benzodiazepine Level NEGATIVE (NEGATIVE) Urine Cocaine NEGATIVE (NEGATIVE) Urine Marijuana (THC) NEGATIVE (NEGATIVE) 01/26/19 Range/Units 13:48 WBC (4.0-10.5) K/mm3 RBC (4.1-5.4) M/mm3 Hgb (12.0-16.0) gm/dl Hct (35-47) % MCV (78-100) fl MCH (26-32) pg MCHC (32-36) g/dl RDW (11.5-14.0) % Plt Count (150-450) K/mm3 MPV (6-9.5) fl Gran % (36.0-66.0) % Eos # (Auto) (0-0.5) Absolute Lymphs (auto) (1.0-4.6) Absolute Monos (auto) (0.0-1.3) Lymphocytes % (24.0-44.0) % Monocytes % (0.0-12.0) % Eosinophils % (0.00-5.0) % Basophils % (0.0-0.4) % Absolute Granulocytes (1.4-6.9) Basophils # (0-0.4) Sodium (137-145) mmol/L Potassium (3.5-5.1) mmol/L Chloride (98-107) mmol/L Carbon Dioxide (22-30) mmol/L Anion Gap (5-15) MEQ/L BUN (7-17) mg/dL Creatinine (0.52-1.04) mg/dL Estimated GFR ML/MIN Glucose (74-106) mg/dL Calcium (8.4-10.2) mg/dL Total Bilirubin (0.2-1.3) mg/dL AST (14-36) U/L ALT (0-35) U/L Alkaline Phosphatase (38-126) U/L Serum Total Protein (6.3-8.2) g/dL Albumin (3.5-5.0) g/dL Urine Color YELLOW (YELLOW) Urine Appearance SLIGHTLY CLOUDY (CLEAR) Urine pH 8.0 (5-6) Ur Specific [place] 1.003 (1.005-1.025) Urine Protein NEGATIVE (Negative) Urine Ketones NEGATIVE (NEGATIVE) Urine Blood NEGATIVE (0-5) Vincent/ul Urine Nitrite NEGATIVE (NEGATIVE) Urine Bilirubin NEGATIVE (NEGATIVE) Urine Urobilinogen NEGATIVE (0-1) mg/dL Ur Leukocyte Esterase TRACE (NEGATIVE) Urine WBC (Auto) 6-10 (0-5) /HPF Urine RBC (Auto) NONE (0-2) /HPF U Epithel Cells (Auto) NONE (FEW) /HPF Urine Bacteria (Auto) MODERATE (NEGATIVE) /HPF Urine Mucus (Auto) SLIGHT (NEGATIVE) /HPF Urine Culture Reflexed NO (NO) Urine Glucose NEGATIVE (NEGATIVE) mg/dL Urine Opiates Level (NEGATIVE) Ur Methadone (NEGATIVE) Urine Barbiturates (NEGATIVE) Ur Phencyclidine (PCP) (NEGATIVE) Urine Amphetamine (NEGATIVE) U Benzodiazepine Level (NEGATIVE) Urine Cocaine (NEGATIVE) Urine Marijuana (THC) (NEGATIVE) - Progress Progress: improved Air Movement: good Progress Note: 01/26/19 14:53 Pt was seen and examined. her physical exam was normal. Labs showed UTI. Pt did get Ceftriaxone IM, and Toradol IM for her headache. Pt is safe for d/c. Omnicef will be prescribed for out pt therapy. Pt should f/u with her PCP. Will see patient in: office Counseled pt/family regarding: need for follow-up - Departure Departure Disposition: Home Clinical Impression: UTI (urinary tract infection) Condition: Stable Critical Care Time: No Referrals: ROMAIN BUTLER NP [Primary Care Provider] - Additional Instructions: Take Omnicef as ordered. F/U with PCP. Drink plenty of fluids. Prescriptions: Cefdinir [Omnicef] 300 mg PO BID #14 capsule
[2019-01-26] MEDS ORDERED: TORAdol 30 mg Injection ONE (14:51)
== END 2019-01-26 15:31 | disposition home or self-care (01) ==
LOC: ED 13:27
DX: N39.0 Urinary tract infection, site not specified (principal)
CPT/HCPCS: 36415; 80053; 80307; 81001; 84484; 85025; 96372; 99284; J0696; J1885

== ENCOUNTER 2019-07-15 19:48 | Emergency (ER) | payer MEDICAID ==
[2019-07-15] MEDS ORDERED: BENADRYL 50 MG/ML IM ONE (20:27)
[2019-07-15] MEDS ORDERED: TORAdol 30 mg Injection IM ONE (20:27)
--- NOTE | 2019-07-15 20:33 | ERPHSYRPT ---
- History of Present Illness Source: patient Exam Limitations: no limitations Patient Subjective Stated Complaint: pt states that she has had migraine for the past week, pt states that she has history of migraines, pt states that she has taken multiple OTC medication with no relief, pt states that stress is the factor for the migraine, pt states that left and she has been under a lot of stress since Triage Nursing Assessment: pt ambulated into the ER, pt is axo x4, pt is hold head, pt is hypertensive, PERRL, pupils 3 mm, pt strengths are equal in all extremities, pt states 5/10 pain to head Timing/Duration: week(s) (1) Quality: dullness Head Pain Location: frontal Severity of Pain-Max: moderate Severity of Pain-Current: moderate Recent Head Trauma: no recent headache/trauma, frequent headaches Modifying Factors: Improves With: exposure to light, noise Associated Symptoms: denies symptoms Allergies/Adverse Reactions: levofloxacin [From Levaquin] Allergy (Verified 07/15/19 20:09) lorazepam [From Ativan] Adverse Reaction (Verified 07/15/19 20:09) HALLUCINATIONS morphine Adverse Reaction (Verified 07/15/19 20:09) SCRATCHING Hx Tetanus, Diphtheria Vaccination/Date Given: Yes Hx Influenza Vaccination/Date Given: No Hx Pneumococcal Vaccination/Date Given: No - Review of Systems Constitutional: No Symptoms Eyes: No Symptoms Ears, Nose, & Throat: No Symptoms Respiratory: No Symptoms Cardiac: No Symptoms Abdominal/Gastrointestinal: No Symptoms Genitourinary Symptoms: No Symptoms Musculoskeletal: No Symptoms - Past Medical History Pertinent Past Medical History: Yes Neurological History: Migraines ENT History: No Pertinent History Cardiac History: No Pertinent History Respiratory History: No Pertinent History Endocrine Medical History: No Pertinent History Musculoskeletal History: No Pertinent History GI Medical History: No Pertinent History History: No Pertinent History Psycho-Social History: Anxiety, Panic Disorder Female Reproductive Disorders: No Pertinent History - Past Surgical History Past Surgical History: Yes Neuro Surgical History: No Pertinent History Cardiac: No Pertinent History Respiratory: No Pertinent History Gastrointestinal: Cholecystectomy Genitourinary: No Pertinent History Musculoskeletal: Orthopedic Surgery Female Surgical History: Hysterectomy, Tubal Ligation, Other Other Surgical History: Ruptured ovarian cyst removal. 3 knee and 2 shoulder surgeries - Social History Smoking Status: Current every day smoker How long have you smoked: 14 Exposure to second hand smoke: No Drug Use: none Patient Lives Alone: Yes - Female History Hx Now: No - Nursing Vital Signs Nursing Vital Signs: Initial Vital Signs Temperature 99.2 F 07/15/19 19:58 Pulse Rate 97 H 07/15/19 19:58 Respiratory Rate 19 07/15/19 19:58 Blood Pressure 166/91 07/15/19 19:58 O2 Sat by Pulse Oximetry 100 07/15/19 19:58 Pain Scale Pain Intensity 8 - Physical Exam General Appearance: mild distress Eye Exam: PERRL/EOMI, eyes nml inspection Ears, Nose, Throat Exam: normal ENT inspection, TMs normal, pharynx normal, moist mucous membranes Neck Exam: normal inspection Respiratory Exam: normal breath sounds Cardiovascular Exam: regular rate/rhythm Gastrointestinal/Abdominal Exam: soft Back Exam: normal inspection Extremity Exam: normal inspection Mental Status Exam: alert, oriented x 3, cooperative 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 Exam: normal hearing, normal speech, PERRL Coordination/Gait Exam: normal finger to nose, normal gait Motor/Sensory Exam: no motor deficit, no sensory deficit Skin Exam: normal color, warm, dry SpO2: 100 O2 Delivery: Room Air Ordered Tests: Medication Summary Generic Name Dose Route Start Last Admin Trade Name Frelayo PRN Reason Stop Dose Admin Metoclopramide HCl 10 mg 07/15/19 22:00 07/15/19 21:43 Reglan 10 Mg PO 08/14/19 21:59 10 mg ACHS MARCO Administration Discontinued Medications Generic Name Dose Route Start Last Admin Trade Name Freq PRN Reason Stop Dose Admin Diphenhydramine HCl 25 mg 07/15/19 20:27 07/15/19 21:44 Benadryl 50 Mg/Ml IM 07/15/19 20:28 25 mg STAT ONE Administration Diphenhydramine HCl Confirm 07/15/19 21:39 Benadryl 50 Mg/Ml Administered 07/15/19 21:40 Dose 50 mg .ROUTE .STK-MED ONE Ketorolac Tromethamine 30 mg 07/15/19 20:27 07/15/19 21:43 Toradol 30 Mg Injection IM 07/15/19 20:28 30 mg STAT ONE Administration Ketorolac Tromethamine Confirm 07/15/19 21:38 Toradol 30 Mg Injection Administered 07/15/19 21:39 Dose 30 mg .ROUTE .STK-MED ONE - Progress Progress: improved (cpntinue maxalt prn. BP slightly elevated. f/u with pcp in a weeks time. had to give one dose demerol since pain wasnt better at all. advised it isnt usual to do opiates for migraines) - Departure Departure Disposition: Home Clinical Impression: Migraine headache Condition: Stable Critical Care Time: No Referrals: ROMAIN BUTLER NP [Primary Care Provider] -
[2019-07-15] MEDS ORDERED: TORAdol 30 mg Injection ONE (21:38)
[2019-07-15] MEDS ORDERED: Reglan 10 MG ONE ×2 (21:38→23:10)
[2019-07-15] MEDS ORDERED: BENADRYL 50 MG/ML ONE (21:39)
[2019-07-15] MEDS: Reglan 10 MG PO SCH ×2 (21:43→23:12)
[2019-07-15] MEDS ORDERED: DEMEROL 50 MG IM ONE (22:49)
[2019-07-15] MEDS ORDERED: DEMEROL 50 MG ONE (23:10)
[2019-07-15 23:25] VITALS: BP 134/77; PULSE 73; O2SAT 97
== END 2019-07-15 23:25 | disposition home or self-care (01) ==
LOC: ED 19:48
DX: G43.909 Migraine, unspecified, not intractable, without status migrainosus (principal)
CPT/HCPCS: 96372; 99284; J1200; J1885; J2175; A9270-GY

== ENCOUNTER 2019-09-13 22:44 | Emergency (ER) | payer MEDICAID ==
--- NOTE | 2019-09-13 22:49 | ERPHSYRPT ---
- History of Present Illness Time Seen by Provider: 09/13/19 22:49 Source: patient Exam Limitations: no limitations Physician History: 43 y/o white female with h/o migraine headaches, anxiety and panic d/o and two right shoulder surgeries presents with right shoulder pain for approx 1 week. worse this am. no acute trauma. no cp, no soa. Occurred: last week, other (worse this am) Method of Injury: unknown Quality: aching Severity of Pain-Max: moderate Severity of Pain-Current: moderate Extremities Pain Location: shoulder: right Modifying Factors: Improves With: nothing Associated Symptoms: none Allergies/Adverse Reactions: levofloxacin [From Levaquin] Allergy (Verified 09/13/19 23:16) lorazepam [From Ativan] Adverse Reaction (Verified 09/13/19 23:16) HALLUCINATIONS morphine Adverse Reaction (Verified 09/13/19 23:16) SCRATCHING Hx Tetanus, Diphtheria Vaccination/Date Given: Yes Hx Influenza Vaccination/Date Given: No Hx Pneumococcal Vaccination/Date Given: No - Review of Systems Constitutional: No Symptoms Eyes: No Symptoms Ears, Nose, & Throat: No Symptoms Respiratory: No Symptoms Cardiac: No Symptoms Abdominal/Gastrointestinal: No Symptoms Genitourinary Symptoms: No Symptoms Musculoskeletal: Joint Pain (right shoulder) Skin: No Symptoms Neurological: No Symptoms Psychological: No Symptoms Endocrine: No Symptoms Hematologic/Lymphatic: No Symptoms Immunological/Allergic: No Symptoms All Other Systems: Reviewed and Negative - Past Medical History Pertinent Past Medical History: Yes Neurological History: Migraines ENT History: No Pertinent History Cardiac History: No Pertinent History Respiratory History: No Pertinent History Endocrine Medical History: No Pertinent History Musculoskeletal History: No Pertinent History GI Medical History: No Pertinent History History: No Pertinent History Psycho-Social History: Anxiety, Panic Disorder Female Reproductive Disorders: No Pertinent History - Past Surgical History Past Surgical History: Yes Neuro Surgical History: No Pertinent History Cardiac: No Pertinent History Respiratory: No Pertinent History Gastrointestinal: Cholecystectomy Genitourinary: No Pertinent History Musculoskeletal: Orthopedic Surgery Female Surgical History: Hysterectomy, Tubal Ligation, Other Other Surgical History: Ruptured ovarian cyst removal. 3 knee and 2 shoulder surgeries - Social History Smoking Status: Current every day smoker How long have you smoked: 14 Exposure to second hand smoke: No Drug Use: none Patient Lives Alone: Yes - Nursing Vital Signs Nursing Vital Signs: Initial Vital Signs Temperature 98.1 F 09/13/19 22:58 Pulse Rate 86 03/02/20 22:58 Respiratory Rate 18 09/13/19 22:58 Blood Pressure 153/98 09/13/19 22:58 O2 Sat by Pulse Oximetry 100 09/13/19 22:58 Pain Scale Pain Intensity [Right Shoulder 8 ] Pain Intensity 8 - Physical Exam General Appearance: no apparent distress, alert, anxiety Eyes, Ears, Nose, Throat Exam: normal ENT inspection, moist mucous membranes Neck Exam: normal inspection, non-tender, supple, full range of motion Cardiovascular/Respiratory Exam: chest non-tender Abdominal Exam: non-tender Shoulder Exam: normal inspection, no evidence of injury, normal ROM, soft tissue tenderness Elbow/Forearm Exam: normal inspection, non-tender, no evidence of injury, normal ROM Wrist Exam: normal inspection, non-tender, no evidence of injury, normal ROM Hand Exam: normal inspection, non-tender, no evidence of injury, normal ROM Neuro/Tendon Exam: normal sensation, normal motor functions, normal tendon functions Mental Status Exam: alert, oriented x 3, cooperative Skin Exam: normal color, warm, dry SpO2 Interpretation: normal O2 Delivery: Room Air - Course Nursing assessment & vital signs reviewed: Yes Ordered Tests: Active Orders 24 hr Category Date Time Status SHOULDER Stat Exams 09/13/19 23:12 Taken Medication Summary Discontinued Medications Generic Name Dose Route Start Last Admin Trade Name Diana PRAyla Reason Stop Dose Admin Ibuprofen 400 mg 09/13/19 23:21 09/13/19 23:32 Motrin 400 Mg PO 09/13/19 23:22 400 mg STAT ONE Administration Ibuprofen Confirm 09/13/19 23:25 Motrin 400 Mg Administered 09/13/19 23:26 Dose 400 mg .ROUTE .STK-MED ONE Oxycodone/Acetaminophen 1 tab 09/13/19 23:21 09/13/19 23:32 Percocet Tablet 5/325mg PO 09/13/19 23:22 1 tab STAT STA Administration Oxycodone/Acetaminophen Confirm 09/13/19 23:25 Percocet Tablet 5/325mg Administered 09/13/19 23:26 Dose 1 tab .ROUTE .STK-MED ONE - Progress Progress: unchanged Progress Note: 09/13/19 23:20 pt has had percocet in past and no problems. 09/13/19 23:51 X-ray of right shoulder reveals no evidence of any acute fractures or dislocations Counseled pt/family regarding: diagnosis, need for follow-up, rad results - Departure Departure Disposition: Home Clinical Impression: Right shoulder pain Condition: Stable Critical Care Time: No Referrals: ROMAIN BUTLER NP [Primary Care Provider] - Additional Instructions: Ibuprofen 400 mg with food 3 times a day for the next 4 days. Follow-up with your prescribing physician or orthopedic surgeon for further evaluation and management. Prescriptions: Oxycodone HCl/Acetaminophen [Percocet 5-325 mg Tablet] 1 each PO Q8H PRN PRN #6 tablet MDD 3 PRN Reason: Pain
[2019-09-13] MEDS ORDERED: MOTRIN 400 MG ONE (23:25)
[2019-09-13] MEDS ORDERED: PERCOCET TABLET 5/325MG ONE (23:25)
[2019-09-13] MEDS: MOTRIN 400 MG PO ONE (23:32)
[2019-09-13] MEDS: PERCOCET TABLET 5/325MG PO STA (23:32)
[2019-09-14 00:15] VITALS: BP 119/80; PULSE 81; O2SAT 99
--- NOTE | 2019-09-14 09:05 | XRAY ---
Indication: Pain. Decreased range of motion. Comparison: None 3 views of the right shoulder demonstrates previous partial resection distal clavicle. No other bony, articular, or soft tissue abnormalities.
== END 2019-09-14 00:15 | disposition home or self-care (01) ==
LOC: ED 22:44
DX: M25.511 Pain in right shoulder (principal); F41.9 Anxiety disorder, unspecified
CPT/HCPCS: 73030; 99283; A9270-GY

== ENCOUNTER 2020-01-24 11:47 | Emergency (ER) | payer MEDICAID ==
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
[2020-01-24] MEDS ORDERED: TORAdol 30 mg Injection IM ONE (12:31)
--- NOTE | 2020-01-24 12:32 | XRAY ---
Indication: Pain following twisting injury 10 days ago. Comparison: None 3 view right knee demonstrates medial hemiarthroplasty with intact prosthesis. No other bony, articular, or soft tissue abnormalities.
[2020-01-24] MEDS ORDERED: TORAdol 30 mg Injection ONE (12:38)
[2020-01-24 12:51] VITALS: O2SAT 99
[2020-01-24 13:05] VITALS: BP 140/81; PULSE 97
== END 2020-01-24 13:05 | disposition home or self-care (01) ==
LOC: ED 11:47
DX: S83.411A Sprain of medial collateral ligament of right knee, initial encounter (principal); M25.561 Pain in right knee; Z96.651 Presence of right artificial knee joint
CPT/HCPCS: 73562; 96372; 99284; J1885

== ENCOUNTER 2020-06-28 13:13 | Day surgery (SDC) | payer OTHER ==
[2020-06-28] MEDS ORDERED: Depo-Medrol 40 MG/ML IM ONE (13:14)
[2020-06-28] MEDS ORDERED: BUPIVACAINE 0.5% VIAL IJ ONE (13:14)
[2020-06-28] MEDS ORDERED: Ketamine HCl 50 MG/ML ONE (14:17)
[2020-06-28] MEDS ORDERED: DIPRIVAN 200 MG/20 ML IV ONE (14:17)
[2020-06-28] MEDS ORDERED: Lactated Ringers 1,000 ML IV ONE (16:06)
--- NOTE | 2020-06-28 16:56 | XRAY ---
Indication: Right shoulder injection. Intraoperative fluoroscopy was provided for 13 seconds. Single digital spot image of the right shoulder submitted for interpretation demonstrates needle tip projecting over the glenohumeral joint superiorly. Small amount of contrast injected for needle tip placement. Correlate with intraoperative findings/report.
--- NOTE | 2020-06-28 17:10 | XRAY ---
13 seconds fluoroscopy time in surgery for intra-articular injection of the right shoulder.
== END 2020-06-28 14:48 | disposition home or self-care (01) ==
LOC: SDC-PAIN 13:13
PROVIDERS: ATTEND Psychiatry & Neurology Pain Medicine
DX: M19.011 Primary osteoarthritis, right shoulder (principal); F41.8 Other specified anxiety disorders; Z79.899 Other long term (current) drug therapy
CPT/HCPCS: 20610; 73030; 77002; J1030; J2704; Q9966

== ENCOUNTER 2020-11-24 18:46 | Emergency (ER) | payer OTHER ==
[2020-11-24 19:01] VITALS: O2SAT 100
[2020-11-24] MEDS ORDERED: Hydromorphone 1 mg/ml Injection IM ONE (19:11)
[2020-11-24] MEDS ORDERED: TORAdol 30 mg Injection IM ONE (19:12)
--- NOTE | 2020-11-24 19:17 | ERPHSYRPT ---
- History of Present Illness Time Seen by Provider: 11/24/20 19:00 Source: patient Exam Limitations: no limitations Patient Subjective Stated Complaint: pt reports migraine for 3 days, reports nausea and photophobia as well. reports history of migraine for which she normal ly takes maxalt with success but today has no relief. Triage Nursing Assessment: pt is aox3, pupils perrl, speech is clear, normal, answers questions appropriately, face is symmetrical, sensation intact, afebrile, resps easy and non labored, cap refill < 3 seconds, radial pulses strong and equal, pt ambulatory to trt room with no difficulties, dark sunglasses in place. Physician History: Is a 44-year-old female with a long history of migraines and many visits to the ER over the past several years she has photophobia nausea associated with this headache it is typical of her past migraine headaches. She started 3 days ago and her Maxalt which normally controls her migraines is not working. Timing/Duration: day(s) (3) Quality: aching, throbbing Head Pain Location: global Severity of Pain-Max: severe Severity of Pain-Current: severe Recent Head Trauma: no recent headache/trauma, chronic headaches Modifying Factors: Improves With: exposure to light, noise Associated Symptoms: nausea/vomiting, sensitive to light Previous symptoms: same symptoms as today Allergies/Adverse Reactions: levofloxacin [From Levaquin] Allergy (Verified 11/24/20 19:01) lorazepam [From Ativan] Adverse Reaction (Verified 11/24/20 19:01) HALLUCINATIONS morphine Adverse Reaction (Verified 11/24/20 19:01) SCRATCHING Home Medications: No Reportable Medications [No Reported Medications] 01/24/20 [History] Hx Tetanus, Diphtheria Vaccination/Date Given: Yes Hx Influenza Vaccination/Date Given: Yes Hx Pneumococcal Vaccination/Date Given: No Immunizations Up to Date: Yes Travel Risk - International Travel Have you traveled outside of the country in past 3 weeks: No - Coronavirus Screening Are you exhibiting any of the following symptoms?: No Close contact with a COVID-19 positive Pt in past 14-21 Days: No - Vaccine Status Have you recieved a Covid-19 vaccination: No - Review of Systems Constitutional: No Fever, No Chills Eyes: No Symptoms Ears, Nose, & Throat: No Symptoms Respiratory: No Cough, No Dyspnea Cardiac: No Chest Pain, No Edema, No Syncope Abdominal/Gastrointestinal: No Abdominal Pain, No Nausea, No Vomiting, No Diarrhea Genitourinary Symptoms: No Dysuria Musculoskeletal: No Back Pain, No Neck Pain Skin: No Rash Neurological: Headache, No Dizziness, No Focal Weakness, No Sensory Changes Psychological: No Symptoms Endocrine: No Symptoms All Other Systems: Reviewed and Negative - Past Medical History Pertinent Past Medical History: Yes Neurological History: Migraines, Seizures ENT History: No Pertinent History Cardiac History: No Pertinent History Respiratory History: No Pertinent History Endocrine Medical History: No Pertinent History Musculoskeletal History: No Pertinent History GI Medical History: No Pertinent History History: No Pertinent History Psycho-Social History: Anxiety, Panic Disorder Female Reproductive Disorders: No Pertinent History - Past Surgical History Past Surgical History: Yes Neuro Surgical History: No Pertinent History Cardiac: No Pertinent History Respiratory: No Pertinent History Gastrointestinal: Cholecystectomy Genitourinary: No Pertinent History Musculoskeletal: Orthopedic Surgery Female Surgical History: Hysterectomy, Tubal Ligation, Other Other Surgical History: Ruptured ovarian cyst removal. 3 knee and 2 shoulder surgeries - Social History Smoking Status: Current every day smoker How long have you smoked: years Exposure to second hand smoke: Yes Drug Use: none Patient Lives Alone: No - Female History Hx Now: No - Nursing Vital Signs Nursing Vital Signs: Initial Vital Signs Pulse Rate 79 11/24/20 18:50 Respiratory Rate 18 11/24/20 18:50 Blood Pressure 154/98 11/24/20 18:50 O2 Sat by Pulse Oximetry 100 11/24/20 18:50 Pain Scale Pain Intensity 7 - Physical Exam General Appearance: mild distress Eye Exam: PERRL/EOMI, photophobia Ears, Nose, Throat Exam: normal ENT inspection, moist mucous membranes Neck Exam: normal inspection, supple, full range of motion, No meningismus Respiratory Exam: normal breath sounds, lungs clear Cardiovascular Exam: regular rate/rhythm, normal heart sounds Gastrointestinal/Abdominal Exam: soft, No tenderness, No distention Back Exam: normal inspection, normal range of motion Mental Status Exam: alert, oriented x 3, 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 Exam: normal speech, PERRL, No facial droop Coordination/Gait Exam: normal cerebellar function Motor/Sensory Exam: no motor deficit, no sensory deficit Skin Exam: normal color, warm, dry, No rash SpO2 Interpretation: normal SpO2: 100 O2 Delivery: Room Air - Course Nursing assessment & vital signs reviewed: Yes Ordered Tests: Medication Summary Discontinued Medications Generic Name Dose Route Start Last Admin Trade Name Diana PRN Reason Stop Dose Admin Hydromorphone HCl 1 mg 11/24/20 19:11 11/24/20 19:25 Hydromorphone 1 Mg/Ml Injection IM 11/24/20 19:12 1 mg STAT ONE Administration Hydromorphone HCl Confirm 11/24/20 19:24 Hydromorphone 1 Mg/Ml Injection Administered 11/24/20 19:25 Dose 1 mg .ROUTE .STK-MED ONE Hydromorphone HCl 1 mg 11/24/20 20:14 11/24/20 20:23 Hydromorphone 1 Mg/Ml Injection IV 11/24/20 20:15 1 mg STAT ONE Administration Hydromorphone HCl Confirm 11/24/20 20:22 Hydromorphone 1 Mg/Ml Injection Administered 11/24/20 20:23 Dose 1 mg .ROUTE .STK-MED ONE Ketorolac Tromethamine 60 mg 11/24/20 19:12 11/24/20 19:25 Toradol 30 Mg Injection IM 11/24/20 19:13 60 mg STAT ONE Administration Ketorolac Tromethamine Confirm 11/24/20 19:23 Toradol 30 Mg Injection Administered 11/24/20 19:24 Dose 60 mg .ROUTE .STK-MED ONE Ondansetron HCl 4 mg 11/24/20 19:25 11/24/20 19:34 Zofran Odt 4 Mg PO 11/24/20 19:26 4 mg STAT ONE Administration Ondansetron HCl Confirm 11/24/20 19:33 Zofran Odt 4 Mg Administered 11/24/20 19:34 Dose 4 mg .ROUTE .STK-MED ONE - Progress Progress: improved Air Movement: good Blood Culture(s) Obtained: No Antibiotics given: No - Departure Departure Disposition: Home Clinical Impression: Migraine headache Condition: Stable Critical Care Time: No Referrals: ROMAIN BUTLER NP [Primary Care Provider] - Instructions: Headache, Adult (DC)
[2020-11-24] MEDS ORDERED: TORAdol 30 mg Injection ONE (19:23)
[2020-11-24] MEDS ORDERED: Hydromorphone 1 mg/ml Injection ONE ×2 (19:24→20:22)
[2020-11-24] MEDS ORDERED: ZOFRAN ODT 4 MG PO ONE (19:25)
[2020-11-24] MEDS ORDERED: ZOFRAN ODT 4 MG ONE (19:33)
[2020-11-24] MEDS ORDERED: Hydromorphone 1 mg/ml Injection IV ONE (20:14)
[2020-11-24 21:15] VITALS: BP 131/79; PULSE 57
== END 2020-11-24 21:15 | disposition home or self-care (01) ==
LOC: ED 18:46
DX: G43.909 Migraine, unspecified, not intractable, without status migrainosus (principal)
CPT/HCPCS: 96372; 99284; J1170; J1885; Q0162

== ENCOUNTER 2021-02-14 08:45 | Day surgery (SDC) | payer OTHER ==
[2021-02-14] MEDS ORDERED: Xylocaine 1% Vial 30 ML PF IJ ONE (08:46)
[2021-02-14] MEDS ORDERED: Decadron 4 MG INJ IV ONE (08:46)
[2021-02-14] MEDS ORDERED: DIPRIVAN 200 MG/20 ML IV ONE (09:50)
[2021-02-14] MEDS ORDERED: Lactated Ringers 1,000 ML IV ONE (15:53)
--- NOTE | 2021-02-15 11:53 | XRAY ---
10 seconds of fluoroscopy was used in surgery for a right piriformis injection.
--- NOTE | 2021-02-17 23:46 | XRAY ---
Indication: Right piriformis injection. Intraoperative fluoroscopy was provided for 10 seconds. A single digital spot image submitted for interpretation demonstrates the posterior needle tip projected over the expected right piriformis muscle. A small amount of contrast has been injected for needle tip placement. Correlate with intraoperative findings/report.
== END 2021-02-14 10:32 | disposition home or self-care (01) ==
LOC: SDC-PAIN 08:45
PROVIDERS: ATTEND Psychiatry & Neurology Pain Medicine
DX: M79.18 Myalgia, other site (principal); Z79.899 Other long term (current) drug therapy
CPT/HCPCS: 20552; 72020; 76942; 77002; J1100; J2001; J2704; Q9966

== ENCOUNTER 2021-02-18 10:42 | Emergency (ER) | payer OTHER ==
[2021-02-18] MEDS ORDERED: Hydromorphone 1 mg/ml Injection IM ONE (11:11)
[2021-02-18] MEDS ORDERED: Hydromorphone 1 mg/ml Injection ONE (11:17)
[2021-02-18 13:01] LABS: Absolute Neutrophil Ct (ANC) 4.68 (1.4-6.9); BASOPHIL % 0.5 % (0.0-0.4); Basophil (Absolute #) 0.04 (0-0.4); Eosinophil % 0.5 % (0.00-5.0); Eosinophil (Absolute #) 0.04 (0-0.5); Hematocrit 41.7 % (35-47); Hemoglobin 13.4 gm/dl (12.0-16.0); Lymphocytes % 35.6 % (24.0-44.0); Mean Cell Volume 99.5 fl (78-100); Mean Corpuscular Hgb Concent. 32.1 g/dl (32-36); Mean Platelet Volume 9.6 fl (7.5-11.0); Monocyte (Absolute #) 0.66 (0.0-1.3); Monocytes % 7.8 % (0.0-12.0); Neutrophil % 55.6 % (36.0-66.0); Platelet Count 266 K/mm3 (150-450); Red Blood Count 4.19 M/mm3 (4.1-5.4); Red Cell Distribution Width 12.7 % (11.5-14.0); White Blood Count 8.4 K/mm3 (4.0-10.5)
[2021-02-18 13:11] LABS: ALBUMIN 4.3 g/dL (3.5-5.0); ALKALINE PHOSPHATASE 56 U/L (38-126); ANION GAP 12.4 MEQ/L (5-15); BLOOD UREA NITROGEN 6 mg/dL (7-17); CHLORIDE 106 mmol/L (98-107); Calcium 9.6 mg/dL (8.4-10.2); Carbon Dioxide 27 mmol/L (22-30); Creatinine 1 0.93 mg/dL (0.52-1.04); EST GLOMERULAR FILTRATION RATE > 60.0 ML/MIN; Glucose 96 mg/dL (74-106); Potassium 3.9 mmol/L (3.5-5.1); SGOT/AST 24 U/L (14-36); SGPT/ALT 22 U/L (0-35); SODIUM 142 mmol/L (137-145)
--- NOTE | 2021-02-18 13:34 | ERPHSYRPT ---
- History of Present Illness Time Seen by Provider: 02/18/21 10:52 Source: patient Exam Limitations: no limitations Patient Subjective Stated Complaint: Patient states last night R hip pain started, shooting down leg from the top of the hip. Describes pain as sharp and stabbing. Recieved injection last friday in hip for pain. States this is a different pain than what was treated for last. Triage Nursing Assessment: Patient to ED with R hip pain starting at top of right hip and shooting down leg. injection site dimple. Patient states dimple at site is getting bigger. Physician History: 45 years old female with history of chronic right hip and shoulder pain presented in the ER with worsening pain right hip making it difficult weightbearing. Pain is moderate to severe sharp shooting, aggravated with movements/weightbearing and no significant relieving factors despite taking her [place]'s. Denies any numbness tingling or weakness in the right lower extremity. Denies any fall or trauma. Patient did receive intra-articular injection few days ago in the right hip. Did not notice any swelling redness in the right hip area. Method of Injury: unknown Occurred: yesterday Quality: sharpness Severity of Pain-Max: severe Severity of Pain-Current: severe Lower Extremities Pain: hip: right Modifying Factors: Improves With: immobilization. Worsens With: movement Associated Symptoms: No unable to bear weight Allergies/Adverse Reactions: levofloxacin [From Levaquin] Allergy (Verified 02/18/21 11:02) lorazepam [From Ativan] Adverse Reaction (Verified 02/18/21 11:02) HALLUCINATIONS morphine Adverse Reaction (Verified 02/18/21 11:02) SCRATCHING Home Medications: Hydrocodone/Acetaminophen [Hydrocodone-Acetamin 5-325 mg] 5 mg PO TID 02/18 [History] Rizatriptan Benzoate [Maxalt] 10 mg PO PRN 02/18/21 [History] Hx Tetanus, Diphtheria Vaccination/Date Given: Yes Hx Influenza Vaccination/Date Given: Yes Hx Pneumococcal Vaccination/Date Given: No Travel Risk - International Travel Have you traveled outside of the country in past 3 weeks: No - Coronavirus Screening Are you exhibiting any of the following symptoms?: No Close contact with a COVID-19 positive Pt in past 14-21 Days: No - Vaccine Status Have you recieved a Covid-19 vaccination: No - Review of Systems Constitutional: No Symptoms Ears, Nose, & Throat: No Symptoms Respiratory: No Symptoms Cardiac: No Symptoms Abdominal/Gastrointestinal: No Symptoms Genitourinary Symptoms: No Symptoms Musculoskeletal: Arthralgias Skin: No Symptoms Neurological: No Symptoms Endocrine: No Symptoms Hematologic/Lymphatic: No Symptoms Immunological/Allergic: No Symptoms - Past Medical History Pertinent Past Medical History: Yes Neurological History: Migraines, Seizures ENT History: No Pertinent History Cardiac History: No Pertinent History Respiratory History: No Pertinent History Endocrine Medical History: No Pertinent History Musculoskeletal History: No Pertinent History GI Medical History: No Pertinent History History: No Pertinent History Psycho-Social History: Anxiety, Panic Disorder Female Reproductive Disorders: No Pertinent History - Past Surgical History Past Surgical History: Yes Neuro Surgical History: No Pertinent History Cardiac: No Pertinent History Respiratory: No Pertinent History Gastrointestinal: Cholecystectomy Genitourinary: No Pertinent History Musculoskeletal: Orthopedic Surgery Female Surgical History: Hysterectomy, Tubal Ligation, Other Other Surgical History: Ruptured ovarian cyst removal. 3 knee and 2 shoulder surgeries - Social History Smoking Status: Current every day smoker How long have you smoked: years Exposure to second hand smoke: Yes Drug Use: none Patient Lives Alone: No - Female History Hx Last Menstrual Period: hysterectomy Hx Now: No - Nursing Vital Signs Nursing Vital Signs: Initial Vital Signs Temperature 97.5 F 02/18/21 10:47 Pulse Rate 70 02/18/21 10:47 Respiratory Rate 16 02/18/21 10:47 Blood Pressure 163/81 02/18/21 10:47 O2 Sat by Pulse Oximetry 100 02/18/21 10:47 Pain Scale Pain Intensity 8 - Physical Exam General Appearance: no apparent distress, alert Eyes, Ears, Nose, Throat Exam: normal ENT inspection Neck Exam: normal inspection, supple, full range of motion Cardiovascular/Respiratory Exam: normal breath sounds, regular rate/rhythm Back Exam: normal inspection, normal range of motion Hips Exam: right: bone tenderness, limited range of motion, pain, soft tissue tenderness, other (No limb shortening. Pain is reproducible with movements at the right lower extremity. Intact distal neurovascular.), left: non-tender, normal inspection, normal range of motion Legs Exam: bilateral leg: non-tender, normal inspection, normal range of motion, no evidence of injury Knees Exam: bilateral knee: non-tender, normal inspection, normal range of motion, no evidence of injury Ankle Exam: bilateral ankle: non-tender, normal inspection, normal range of motion, no evidence of injury Foot Exam: bilateral foot: non-tender, normal inspection, normal range of motion, no evidence of injury DTR - Lower Extremities Exam: knee (R): 2+, knee (L): 2+, ankle (R): 2+, ankle (L): 2+ Neuro/Tendon Exam: normal sensation, normal motor functions Mental Status Exam: alert, oriented x 3, cooperative Skin Exam: normal color SpO2 Interpretation: normal SpO2: 100 O2 Delivery: Room Air Ordered Tests: Active Orders 24 hr Category Date Time Status HIP UNI (2V) INCL PEL IF DONE Stat Exams 02/18/21 12:13 Taken PELVIS WITHOUT CONTRAST [CT] Stat Exams 02/18/21 14:36 Taken BLOOD CULTURE Stat Lab 02/18/21 13:13 Received CBC W DIFF Stat Lab 02/18/21 12:53 Completed CMP Stat Lab 02/18/21 12:53 Completed Lactic Acid Stat Lab 02/18/21 12:48 Completed Medication Summary Discontinued Medications Generic Name Dose Route Start Last Admin Trade Name Karanq PRN Reason Stop Dose Admin Hydromorphone HCl 1 mg 02/18/21 11:11 02/18/21 11:20 Hydromorphone 1 Mg/Ml Injection IM 02/18/21 11:12 1 mg STAT ONE Administration Hydromorphone HCl Confirm 02/18/21 11:17 Hydromorphone 1 Mg/Ml Injection Administered 02/18/21 11:18 Dose 1 mg .ROUTE .STK-MED ONE Ketorolac Tromethamine 30 mg 02/18/21 14:07 02/18/21 14:09 Toradol 30 Mg Injection IM 02/18/21 14:08 30 mg STAT ONE Administration Ketorolac Tromethamine Confirm 02/18/21 14:06 Toradol 30 Mg Injection Administered 02/18/21 14:07 Dose 30 mg .ROUTE .STK-MED ONE Lab/Rad Data: Laboratory Result Diagrams 02/18/21 12:53 02/18/21 12:53 Laboratory Results 02/18/21 02/18/21 02/18/21 Range/Units 12:53 12:53 12:48 WBC 8.4 (4.0-10.5) K/mm3 RBC 4.19 (4.1-5.4) M/mm3 Hgb 13.4 (12.0-16.0) gm/dl Hct 41.7 (35-47) % MCV 99.5 (78-100) fl MCH 32.0 (26-32) pg MCHC 32.1 (32-36) g/dl RDW 12.7 (11.5-14.0) % Plt Count 266 (150-450) K/mm3 MPV 9.6 (7.5-11.0) fl Gran % 55.6 (36.0-66.0) % Eos # (Auto) 0.04 (0-0.5) Absolute Lymphs (auto) 3.00 (1.0-4.6) Absolute Monos (auto) 0.66 (0.0-1.3) Lymphocytes % 35.6 (24.0-44.0) % Monocytes % 7.8 (0.0-12.0) % Eosinophils % 0.5 (0.00-5.0) % Basophils % 0.5 (0.0-0.4) % Absolute Granulocytes 4.68 (1.4-6.9) Basophils # 0.04 (0-0.4) Sodium 142 (137-145) mmol/L Potassium 3.9 (3.5-5.1) mmol/L Chloride 106 (98-107) mmol/L Carbon Dioxide 27 (22-30) mmol/L Anion Gap 12.4 (5-15) MEQ/L BUN 6 L (7-17) mg/dL Creatinine 0.93 (0.52-1.04) mg/dL Estimated GFR > 60.0 ML/MIN Glucose 96 (74-106) mg/dL Lactic Acid 0.7 (0.4-2.0) Calcium 9.6 (8.4-10.2) mg/dL Total Bilirubin 0.40 (0.2-1.3) mg/dL AST 24 (14-36) U/L ALT 22 (0-35) U/L Alkaline Phosphatase 56 (38-126) U/L Serum Total Protein 7.0 (6.3-8.2) g/dL Albumin 4.3 (3.5-5.0) g/dL - Progress Progress: improved, pain not gone completely Progress Note: 02/18/21 15:35 She is given pain medication for symptomatic relief, on reevaluation feeling better but pain is not completely resolved. X-rays hip reviewed by me did not reveal any obvious fracture dislocation, official report is pending. Patient was still having difficulty movements and I have obtained blood work as patient recently has intra-articular injection but has normal white count, lactate and patient vitals are stable, do not think patient has septic arthritis. I have obtained CT as well to rule out any occult fracture but is negative. No sign symptoms suggesting cauda equina. She is advised to continue with her pain medications, cane/walker for ambulation as needed and outpatient follow-up with her primary care and pain management. Discussed signs symptoms of worsening needing return to ER which she seems understanding. Counseled pt/family regarding: lab results, diagnosis, need for follow-up, rad results - Departure Departure Disposition: Home Clinical Impression: Acute right hip pain Condition: Stable Critical Care Time: No Referrals: ROMAIN BUTLER, MOLECULAR TECHNOLOGIST [Primary Care Provider] - (1-2 days for re evaluation) Instructions: Bursitis (DC), Hip Pain (DC) Additional Instructions: take pain medications which you have at home as recommended. follow up with PCP /pain management for re evaluation. return to ER for excruciating pain , difficulty ambulation, numbness/weakness etc. Prescriptions: Cyclobenzaprine HCl 10 mg [Flexeril 10 MG] 10 mg PO TID #12 tablet Diclofenac Sodium 75 mg PO BID PRN 10 Days #20 tablet.dr TAM Reason: Pain
[2021-02-18] MEDS ORDERED: TORAdol 30 mg Injection ONE (14:06)
[2021-02-18] MEDS ORDERED: TORAdol 30 mg Injection IM ONE (14:07)
[2021-02-18 15:38] VITALS: BP 142/82; PULSE 76
[2021-02-18 16:02] VITALS: O2SAT 100
--- NOTE | 2021-02-18 21:37 | XRAY ---
Indication: Right hip pain. Comparison: None AP pelvis and 2 view right hip obtained. No bony, articular, or soft tissue abnormalities.
--- NOTE | 2021-02-18 21:37 | XRAY ---
Indication: Worsening right hip pain following pain management injection 4 days ago. Multiple contiguous axial images obtained through the pelvis. Sagittal and coronal reformatted images obtained. Comparison: September 24, 2018. No acute fracture, dislocation, or suspicious bone lesions. Hips are bilaterally symmetric without effusion. Visualized bowel loops, appendix, and urinary bladder are unremarkable. Impression: Continued negative CT pelvis. Comment: Preliminary interpretation made by [facility]. No critical discrepancy.
== END 2021-02-18 15:39 | disposition home or self-care (01) ==
LOC: ED 10:42
DX: M25.551 Pain in right hip (principal)
CPT/HCPCS: 36415; 72192; 73502; 80053; 83605; 85025; 87040; 96372; 99284; J1170; J1885

== ENCOUNTER 2021-02-20 14:44 | Emergency (ER) | payer OTHER ==
[2021-02-20 15:00] VITALS: BP 145/81; PULSE 72; O2SAT 99
[2021-02-20] MEDS ORDERED: Hydromorphone 1 mg/ml Injection IM ONE (15:22)
[2021-02-20] MEDS ORDERED: Hydromorphone 1 mg/ml Injection ONE (15:24)
--- NOTE | 2021-02-20 15:28 | ERPHSYRPT ---
- History of Present Illness Time Seen by Provider: 02/20/21 14:47 Source: patient Exam Limitations: no limitations Patient Subjective Stated Complaint: Pt was here on Friday due to hip pain, pt was referred to Dr. Fan who had done an injection on her, they referred her on to Ortho, [facility] called her and told her that was out of their scope of practice and needed to go to sports medicine in [place] and they can't see her until next Friday Triage Nursing Assessment: Pt was brought to the ER by her daughter, hypertensive, rates pain in the right buttock as 03/23, pt has a large indention to the right buttock, denies injury, pt was told that she may have torn the gluteus muscle, appears to be in pain Physician History: 45 years old female was evaluated in the ER 2 days ago for right hip pain after receiving injection and right hip, negative x-rays and CT imaging without any signs symptoms suggesting septic joint was discharged with outpatient pain clinic follow-up presented back in the ER with severe excruciating pain with no relief taking [place]. She denies any fall or trauma. Patient has a good-sized pimple in the right hip with questionable gluteus rupture. Pain is exacerbated with movements of the right lower extremity and partial relief with being still. Denies any numbness tingling or weakness of right lower extremity. Denies any direct trauma to the right hip. On presentation in the ER pain clinic called as Dr. Hennessy from [facility] is here in speciality clinic and patient can be seen up there. Method of Injury: unknown Occurred: last week Quality: sharpness Severity of Pain-Max: severe Severity of Pain-Current: severe Lower Extremities Pain: hip: right Modifying Factors: Improves With: immobilization, rest. Worsens With: movement Allergies/Adverse Reactions: levofloxacin [From Levaquin] Allergy (Verified 02/20/21 15:00) lorazepam [From Ativan] Adverse Reaction (Verified 02/20/21 15:00) HALLUCINATIONS morphine Adverse Reaction (Verified 02/20/21 15:00) SCRATCHING Home Medications: Hydrocodone/Acetaminophen [Hydrocodone-Acetamin 5-325 mg] 5 mg PO TID 02/18/21 [History] Rizatriptan Benzoate [Maxalt] 10 mg PO DAILY 02/18/21 [History] Hx Tetanus, Diphtheria Vaccination/Date Given: Yes Hx Influenza Vaccination/Date Given: Yes Hx Pneumococcal Vaccination/Date Given: No Travel Risk - International Travel Have you traveled outside of the country in past 3 weeks: No - Coronavirus Screening Are you exhibiting any of the following symptoms?: No Close contact with a COVID-19 positive Pt in past 14-21 Days: No - Vaccine Status Have you recieved a Covid-19 vaccination: No - Review of Systems Constitutional: No Symptoms Eyes: No Symptoms Ears, Nose, & Throat: No Symptoms Respiratory: No Symptoms Cardiac: No Symptoms Abdominal/Gastrointestinal: No Symptoms Genitourinary Symptoms: No Symptoms Musculoskeletal: Joint Pain Skin: No Symptoms Neurological: No Symptoms Psychological: Anxiety Endocrine: No Symptoms Hematologic/Lymphatic: No Symptoms - Past Medical History Pertinent Past Medical History: Yes Neurological History: Migraines, Seizures ENT History: No Pertinent History Cardiac History: No Pertinent History Respiratory History: No Pertinent History Endocrine Medical History: No Pertinent History Musculoskeletal History: No Pertinent History GI Medical History: No Pertinent History History: No Pertinent History Psycho-Social History: Anxiety, Panic Disorder Female Reproductive Disorders: No Pertinent History - Past Surgical History Past Surgical History: Yes Neuro Surgical History: No Pertinent History Cardiac: No Pertinent History Respiratory: No Pertinent History Gastrointestinal: Cholecystectomy Genitourinary: No Pertinent History Musculoskeletal: Orthopedic Surgery Female Surgical History: Hysterectomy, Tubal Ligation, Other Other Surgical History: Ruptured ovarian cyst removal. 3 knee and 2 shoulder surgeries - Social History Smoking Status: Current every day smoker How long have you smoked: years Exposure to second hand smoke: Yes Drug Use: none Patient Lives Alone: No - Female History Hx Now: No - Nursing Vital Signs Nursing Vital Signs: Initial Vital Signs Temperature 97.8 F 02/20/21 14:49 Pulse Rate 72 02/20/21 14:49 Blood Pressure 145/81 02/20/21 14:49 O2 Sat by Pulse Oximetry 99 02/20/21 14:49 Pain Scale Pain Intensity 9 - Physical Exam General Appearance: moderate distress, alert Eyes, Ears, Nose, Throat Exam: normal ENT inspection Neck Exam: normal inspection, supple, full range of motion Cardiovascular/Respiratory Exam: normal breath sounds, regular rate/rhythm Gastrointestinal/Abdominal Exam: non-tender, soft, no organomegaly Back Exam: normal inspection, normal range of motion Hips Exam: right: bone tenderness, deformity (Siberian/dimple right hip with tenderness to palpation in the muscle and bone), limited range of motion, pain, soft tissue tenderness, other (Difficulty internal rotation right hip), left: non-tender, normal inspection, normal range of motion, no evidence of injury Legs Exam: bilateral leg: non-tender, normal inspection, normal range of motion, no evidence of injury Knees Exam: bilateral knee: non-tender, normal inspection, normal range of motion, no evidence of injury Neuro/Tendon Exam: normal sensation Mental Status Exam: alert, oriented x 3, cooperative Skin Exam: normal color SpO2 Interpretation: normal SpO2: 99 O2 Delivery: Room Air - Progress Progress: unchanged Progress Note: 02/20/21 15:27 She is given Dilaudid IM for symptomatic relief. Discussed with Dr. Hennessy nurse that family practice [facility], patient would be taken there for further evaluation by Ortho as I believe patient has some kind of muscular tear/ligamentous tear. Counseled pt/family regarding: diagnosis, need for follow-up - Departure Departure Disposition: Home Clinical Impression: Acute right hip pain Condition: Stable Critical Care Time: No Referrals: ROMAIN BUTLER NP [Primary Care Provider] - Follow Up with PCP/3 days DEBBIE HENNESSY [ACTIVE STAFF] - (Go to his office in [facility] now.)
== END 2021-02-20 15:32 | disposition home or self-care (01) ==
LOC: ED 14:44
DX: M25.551 Pain in right hip (principal)
CPT/HCPCS: 96372; 99283; J1170

== ENCOUNTER 2021-02-26 19:05 | Emergency (ER) | payer OTHER ==
--- NOTE | 2021-02-26 22:41 | ERPHSYRPT ---
- History of Present Illness Time Seen by Provider: 02/26/21 20:00 Source: patient Exam Limitations: no limitations Patient Subjective Stated Complaint: pt states she has been having pain in her rt hip radiating down her rt leg to her foot. Triage Nursing Assessment: pt alert and oriented, answers questions aprpop. pt back per wheelchair. transfers to stretcher with limping gait. pedal pulse to rt lwoer and cap refill wnl. Physician History: Patient is a 45-year-old female presents to our ED with pain to her right hip. Patient has been experiencing this pain for approximately 3 weeks. Patient has followed up with orthopedic surgery. Patient had a MRI of the left hip performed approximately 2 days ago. Patient is scheduled to follow-up with orthopedic surgeon in 2 days. Patient's pain is localized to the lateral aspect of her right hip. Pain described as an ache that is worse with movement and palpation. Pain improved with rest. No interval trauma. No fever. No extremity weakness. Patient currently on Maurepas primarily for pain to her right shoulder. Patient does follow a pain doctor. Patient reports no other complaints at this time. Method of Injury: unknown Occurred: other (No obvious injury.) Quality: constant Severity of Pain-Max: moderate Severity of Pain-Current: mild Lower Extremities Pain: hip: right Modifying Factors: Improves With: movement, other (Palpation also reproduce symptoms.) Associated Symptoms: none Allergies/Adverse Reactions: levofloxacin [From Levaquin] Allergy (Verified 02/26/21 20:05) lorazepam [From Ativan] Adverse Reaction (Verified 02/26/21 20:05) HALLUCINATIONS morphine Adverse Reaction (Verified 02/26/21 20:05) SCRATCHING Home Medications: Hydrocodone/Acetaminophen [Hydrocodone-Acetamin 5-325 mg] 5 mg PO TID 02/18/21 [History] Rizatriptan Benzoate [Maxalt] 10 mg PO DAILY PRN PRN 02/18/21 [History] Cyclobenzaprine HCl 10 mg [Flexeril 10 MG] 10 mg PO TID PRN 02/26/21 [History] Diclofenac Sodium 75 mg PO BID PRN PRN 02/26/21 [History] Hx Tetanus, Diphtheria Vaccination/Date Given: Yes Hx Influenza Vaccination/Date Given: Yes Hx Pneumococcal Vaccination/Date Given: No Travel Risk - International Travel Have you traveled outside of the country in past 3 weeks: No - Coronavirus Screening Are you exhibiting any of the following symptoms?: No Close contact with a COVID-19 positive Pt in past 14-21 Days: No - Vaccine Status Have you recieved a Covid-19 vaccination: No - Review of Systems Constitutional: No Symptoms, No Fever, No Chills Eyes: No Symptoms Ears, Nose, & Throat: No Symptoms Respiratory: No Symptoms, No Cough, No Dyspnea Cardiac: No Symptoms, No Chest Pain, No Edema, No Syncope Abdominal/Gastrointestinal: No Symptoms, No Abdominal Pain, No Nausea, No Vomiting, No Diarrhea Genitourinary Symptoms: No Symptoms, No Dysuria Musculoskeletal: No Symptoms, No Back Pain, No Neck Pain Skin: No Symptoms, No Rash Neurological: No Symptoms, No Dizziness, No Focal Weakness, No Sensory Changes Psychological: No Symptoms Endocrine: No Symptoms Hematologic/Lymphatic: No Symptoms Immunological/Allergic: No Symptoms All Other Systems: Reviewed and Negative - Past Medical History Pertinent Past Medical History: Yes Neurological History: Migraines, Seizures ENT History: No Pertinent History Cardiac History: No Pertinent History Respiratory History: No Pertinent History Endocrine Medical History: No Pertinent History Musculoskeletal History: No Pertinent History GI Medical History: No Pertinent History History: No Pertinent History Psycho-Social History: Anxiety, Panic Disorder Female Reproductive Disorders: No Pertinent History - Past Surgical History Past Surgical History: Yes Neuro Surgical History: No Pertinent History Cardiac: No Pertinent History Respiratory: No Pertinent History Gastrointestinal: Cholecystectomy Genitourinary: No Pertinent History Musculoskeletal: Orthopedic Surgery Female Surgical History: Hysterectomy, Tubal Ligation, Other Other Surgical History: Ruptured ovarian cyst removal. 3 knee and 2 shoulder surgeries - Social History Smoking Status: Current every day smoker How long have you smoked: years Exposure to second hand smoke: Yes Drug Use: none Patient Lives Alone: No - Female History Hx Last Menstrual Period: hyster Hx Now: No - Nursing Vital Signs Nursing Vital Signs: Initial Vital Signs Temperature 98.1 F 02/26/21 19:57 Pulse Rate 81 02/26/21 19:57 Respiratory Rate 16 02/26/21 19:57 Blood Pressure 155/86 02/26/21 19:57 O2 Sat by Pulse Oximetry 100 02/26/21 19:57 Pain Scale Pain Intensity 9 - Physical Exam General Appearance: no apparent distress, alert Eyes, Ears, Nose, Throat Exam: normal ENT inspection, moist mucous membranes Neck Exam: normal inspection, non-tender, supple Cardiovascular/Respiratory Exam: chest non-tender, normal breath sounds, regular rate/rhythm, no respiratory distress Gastrointestinal/Abdominal Exam: non-tender, guarding Back Exam: normal inspection, No vertebral tenderness Hips Exam: right: pain, soft tissue tenderness, other (Pain with straight leg raise. Tenderness to palpation right at the greater trochanter/greater trochanteric bursa.), left: non-tender, normal inspection, normal range of motion, no evidence of injury Legs Exam: bilateral leg: non-tender, normal inspection, normal range of motion, no evidence of injury Knees Exam: bilateral knee: non-tender, normal inspection, normal range of motion, no evidence of injury Ankle Exam: bilateral ankle: non-tender, normal inspection, normal range of motion, no evidence of injury Foot Exam: bilateral foot: non-tender, normal inspection, normal range of motion, no evidence of injury, other (Lower extremities are neurovascular intact distally. Palpable PT and DP pulses. Sensation to light touch intact. Yovani ateral lower extremities show soft compartments. Cap refill less than 2 seconds.) Neuro/Tendon Exam: normal sensation, normal motor functions Mental Status Exam: alert, oriented x 3, cooperative Skin Exam: normal color, warm, dry SpO2 Interpretation: normal SpO2: 100 O2 Delivery: Room Air - Course Nursing assessment & vital signs reviewed: Yes - Radiology Exams Hip X-ray Interpretation: Interpreted by me (No fracture or dislocation. No obvious soft tissue abnormalities observed.) Ordered Tests: Active Orders 24 hr Category Date Time Status HIP UNI (2V) INCL PEL IF DONE Stat Exams 02/26/21 21:21 Taken - Progress Progress: improved Progress Note: Patient requested morphine but then realized that she is allergic to morphine. Patient requested Dilaudid IM. This was administered. Patient appears comfortable. Vital stable. X-ray negative for fracture dislocation. She currently has a follow-up appointment was scheduled with her orthopedic doctor within the next 2 days. Patient has crutches. Patient states he is ready for discharge. She will follow-up as scheduled. She voices no other complaints concerns at this time. Portions of this note were created with voice recognition technology. There may be grammatical, spelling, punctuation or sound alike errors 02/26/21 22:50 Counseled pt/family regarding: diagnosis, need for follow-up, rad results - Departure Departure Disposition: Home Clinical Impression: Hip pain Condition: Stable Critical Care Time: No Referrals: ROMAIN BUTLER NP [Primary Care Provider] - Additional Instructions: Discharge/Care Plan JOAO RODRIGUES was seen on 02/26/21 in the Emergency Room. The patient was counseled regarding Diagnosis,Lab results, Imaging studies, need for follow up and when to return to the Emergency Room. Prescriptions given: Discharge Note I have spoken with the patient and/or caregivers. I have explained the patient's condition, diagnosis and treatment plan based on the information available to me at this time. I have answered the patient's and/or caregiver's questions and addressed any concerns. The patient and/or caregivers have as good understanding of the patient's diagnosis, condition and treatment plan as can be expected at this point. The vital signs have been stable. The patient's condition is stable and appropriate for discharge from the emergency department. The patient will pursue further outpatient evaluation with the primary care physician or other designated or consulting physician as outlined in the discharge instructions. The patient and/or caregivers are agreeable to this plan of care and follow-up instructions have been explained in detail. The patient and/or caregivers have received these instruction. The patient/and or caregivers are aware that any significant change in condition or worsening of symptoms should prompt an immediate return to this or the closest emergency department or call 911.
[2021-02-26] MEDS ORDERED: Hydromorphone 1 mg/ml Injection IM ONE (22:46)
[2021-02-26] MEDS ORDERED: Hydromorphone 1 mg/ml Injection ONE (23:09)
[2021-02-26 23:34] VITALS: BP 136/84; PULSE 74; O2SAT 99
--- NOTE | 2021-02-28 17:25 | XRAY ---
Exam: 2 views the right hip and AP film of pelvis from 02/26/2021. Comparison: Right hip films and AP pelvis from 02/18/2021. Indication: Right hip pain for 3 weeks; pain is steadily becoming worse. Findings: AP film of pelvis including both hips and coned-down AP and frog-leg lateral views of the right hip were obtained. No acute fracture or dislocation of the pelvis is seen. No other focal bone lesion is seen. The sacroiliac joints and hip joint spaces appear unremarkable bilaterally. I see no fracture or dislocation of the right hip. The contour of the right femoral head appears unremarkable. The right hip joint space is well-preserved without abnormal periarticular soft tissue calcifications. No other focal bone lesion is seen. Impression: 1. No significant plain film abnormality is seen within the pelvis or right hip. The radiographic appearance is unchanged from 02/18/2021.
== END 2021-02-26 23:28 | disposition home or self-care (01) ==
LOC: ED 19:05
DX: M25.551 Pain in right hip (principal); Z98.890 Other specified postprocedural states
CPT/HCPCS: 73502; 96372; 99283; J1170

== ENCOUNTER 2021-03-26 16:45 | Emergency (ER) | payer OTHER | END 2021-03-26 17:44 | disposition left against medical advice (07) | LOC: ED 16:45 | DX: Z53.8 Procedure and treatment not carried out for other reasons (principal) ==

== ENCOUNTER 2021-05-20 12:21 | Emergency (ER) | payer OTHER ==
[2021-05-20] MEDS ORDERED: TYLENOL 325 MG PO ONE (12:48)
[2021-05-20] MEDS ORDERED: Sodium Chloride 0.9% 1000 ML 1,000 ML IV STA (12:48)
[2021-05-20] MEDS ORDERED: BENADRYL 50 MG/ML IV ONE (12:48)
[2021-05-20] MEDS ORDERED: Reglan 10 MG/2 ML IV ONE (12:48)
[2021-05-20] MEDS ORDERED: TORAdol 30 mg Injection IV ONE (12:48)
[2021-05-20] MEDS ORDERED: TORAdol 30 mg Injection ONE (13:00)
[2021-05-20] MEDS ORDERED: BENADRYL 50 MG/ML ONE (13:00)
[2021-05-20] MEDS ORDERED: Sodium Chloride 0.9% 1000 ML 1,000 ML ONE (13:01)
[2021-05-20] MEDS ORDERED: Reglan 10 MG/2 ML ONE (13:01)
[2021-05-20] MEDS ORDERED: TYLENOL 325 MG ONE (13:01)
[2021-05-20] MEDS ORDERED: Hydromorphone 1 mg/ml Injection IM ONE (14:09)
--- NOTE | 2021-05-20 14:28 | ERPHSYRPT ---
- History of Present Illness Time Seen by Provider: 05/20/21 12:29 Source: patient Exam Limitations: no limitations Patient Subjective Stated Complaint: Pt c/o of a headache since evening Triage Nursing Assessment: Pt brought to the ER by her daughter, tachycardic, rates head pain as 8-9, hx of migraines, N&V, photophobia Physician History: 45-year-old female with a history of migraines poorly controlled on Maxalt presented to the ER with right-sided headache for the last 4 days, gradual onset, progressively worsening, constant, moderate to severe sharp nature with throbbing, aggravated with bright light, noise and no significant relieving factors. Associated with nausea and occasional vomiting. Does not think this is the worst headache of her life. Denies any focal numbness tingling or weakness. Reports having similar migraine multiple times in the past. Timing/Duration: day(s) (4), constant, gradual onset, worse Quality: sharpness Head Pain Location: frontal, parietal Severity of Pain-Max: severe Severity of Pain-Current: severe Recent Head Trauma: no recent headache/trauma, frequent headaches Modifying Factors: Worsens With: exposure to light Associated Symptoms: nausea/vomiting, sensitive to light, No fever/chills, No light-headedness, No loss of consciousness, No nasal congestion, No nasal drainage, No neck pain, No numbness in legs/feet, No rash, No sweating, No scotoma, No seizures, No sinus infection, No speech problems, No stiff neck Previous symptoms: same symptoms as today Allergies/Adverse Reactions: levofloxacin [From Levaquin] Allergy (Verified 05/20/21 12:39) lorazepam [From Ativan] Adverse Reaction (Verified 05/20/21 12:39) HALLUCINATIONS morphine Adverse Reaction (Verified 05/20/21 12:39) SCRATCHING Home Medications: Hydrocodone/Acetaminophen [Hydrocodone-Acetamin 5-325 mg] 5 mg PO TID 02/18/21 [History] Rizatriptan Benzoate [Maxalt] 10 mg PO DAILY PRN PRN 02/18/21 [History] Hx Tetanus, Diphtheria Vaccination/Date Given: Yes Hx Influenza Vaccination/Date Given: Yes Hx Pneumococcal Vaccination/Date Given: No Travel Risk - International Travel Have you traveled outside of the country in past 3 weeks: No - Coronavirus Screening Symptoms: Shortness of Breath - Vaccine Status Have you recieved a Covid-19 vaccination: No - Review of Systems Constitutional: No Symptoms Eyes: No Symptoms Ears, Nose, & Throat: No Symptoms Respiratory: No Symptoms Cardiac: No Symptoms Abdominal/Gastrointestinal: Nausea, Vomiting Genitourinary Symptoms: No Symptoms Musculoskeletal: No Symptoms Skin: No Symptoms Neurological: Headache Psychological: No Symptoms Endocrine: No Symptoms Hematologic/Lymphatic: No Symptoms Immunological/Allergic: No Symptoms - Past Medical History Pertinent Past Medical History: Yes Neurological History: Migraines, Seizures ENT History: No Pertinent History Cardiac History: No Pertinent History Respiratory History: No Pertinent History Endocrine Medical History: No Pertinent History Musculoskeletal History: No Pertinent History GI Medical History: No Pertinent History History: No Pertinent History Psycho-Social History: Anxiety, Panic Disorder Female Reproductive Disorders: No Pertinent History - Past Surgical History Past Surgical History: Yes Neuro Surgical History: No Pertinent History Cardiac: No Pertinent History Respiratory: No Pertinent History Gastrointestinal: Cholecystectomy Genitourinary: No Pertinent History Musculoskeletal: Orthopedic Surgery Female Surgical History: Hysterectomy, Tubal Ligation, Other Other Surgical History: Ruptured ovarian cyst removal. 3 knee and 2 shoulder surgeries - Social History Smoking Status: Former smoker How long have you smoked: years Exposure to second hand smoke: No Drug Use: none Patient Lives Alone: No - Female History Hx Now: No (hysterectomy) - Nursing Vital Signs Nursing Vital Signs: Initial Vital Signs Temperature 98.3 F 05/20/21 12:33 Pulse Rate 109 H 05/20/21 12:33 Blood Pressure 126/105 05/20/21 12:33 O2 Sat by Pulse Oximetry 100 05/20/21 12:33 Pain Scale Pain Intensity 8 - Physical Exam General Appearance: no apparent distress, alert Eye Exam: PERRL/EOMI, eyes nml inspection Ears, Nose, Throat Exam: normal ENT inspection, TMs normal, pharynx normal Neck Exam: normal inspection, non-tender, supple, full range of motion Respiratory Exam: normal breath sounds, lungs clear Cardiovascular Exam: regular rate/rhythm, normal heart sounds Gastrointestinal/Abdominal Exam: soft, normal bowel sounds, No tenderness Extremity Exam: normal inspection, normal range of motion Mental Status Exam: alert, oriented x 3, 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 Exam: normal hearing, normal speech, PERRL Coordination/Gait Exam: normal finger to nose, normal gait, normal cerebellar function, negative Romberg's sign Motor/Sensory Exam: no motor deficit, no sensory deficit, no pronator drift, negative Babinski's sign DTR Exam: bicep (R): 2+, bicep (L): 2+, knee (R): 2+, knee (L): 2+ Skin Exam: normal color SpO2 Interpretation: normal SpO2: 100 O2 Delivery: Room Air Ordered Tests: Active Orders 24 hr Category Date Time Status IV Insertion STAT Care 05/20/21 12:48 Active Medication Summary Discontinued Medications Generic Name Dose Route Start Last Admin Trade Name Diana PRN Reason Stop Dose Admin Acetaminophen 975 mg 05/20/21 12:48 05/20/21 13:03 Acetaminophen 325 Mg Tablet PO 05/20/21 12:49 975 mg STAT ONE Administration Acetaminophen Confirm 05/20/21 13:01 Acetaminophen 325 Mg Tablet Administered 05/20/21 13:02 Dose 975 mg .ROUTE .STK-MED ONE Diphenhydramine HCl 25 mg 05/20/21 12:48 05/20/21 13:04 Diphenhydramine Hcl 50 Mg/Ml Vial IV 05/20/21 12:49 25 mg STAT ONE Administration Diphenhydramine HCl Confirm 05/20/21 13:00 Diphenhydramine Hcl 50 Mg/Ml Vial Administered 05/20/21 13:01 Dose 50 mg .ROUTE .STK-MED ONE Hydromorphone HCl 1 mg 05/20/21 14:09 Hydromorphone 1 Mg/1ml Inj 1 Mg/Ml Syringe IM 05/20/21 14:10 STAT ONE Sodium Chloride 1,000 mls @ 999 mls/hr 05/20/21 12:48 05/20/21 14:12 Sodium Chloride 0.9% 1000 Ml IV 05/20/21 13:48 Infused .Q1H1M STA Infusion Sodium Chloride Confirm 05/20/21 13:01 Sodium Chloride 0.9% 1000 Ml Administered 05/20/21 13:02 Dose 1,000 mls @ ud .ROUTE .STK-MED ONE Ketorolac Tromethamine 30 mg 05/20/21 12:48 05/20/21 13:03 Ketorolac Tromethamine 30 Mg/Ml Inj IV 05/20/21 12:49 30 mg STAT ONE Administration Ketorolac Tromethamine Confirm 05/20/21 13:00 Ketorolac Tromethamine 30 Mg/Ml Inj Administered 05/20/21 13:01 Dose 30 mg .ROUTE .STK-MED ONE Metoclopramide HCl 10 mg 05/20/21 12:48 05/20/21 13:03 Metoclopramide Hcl 10 Mg/2 Ml Vial IV 05/20/21 12:49 10 mg STAT ONE Administration Metoclopramide HCl Confirm 05/20/21 13:01 Metoclopramide Hcl 10 Mg/2 Ml Vial Administered 05/20/21 13:02 Dose 10 mg .ROUTE .STK-MED ONE - Progress Progress: improved Air Movement: good Progress Note: 05/20/21 she is given migraine cocktail, on reevaluation headache is mildly better and was given Dilaudid which resolved her headache. She has a nonfocal neuro exam throughout her stay in the ER. Does not think this is the worst h eadache of her life and the similar symptoms in the past. Do not think she needs neuro imaging or any other work-up, recommended outpatient neurology follow-up. Discussed signs symptoms of worsening needing return to ER which she seems understanding. Stable for discharge. Blood Culture(s) Obtained: No Antibiotics given: No Counseled pt/family regarding: diagnosis, need for follow-up - Departure Departure Disposition: Home Clinical Impression: Migraine headache Qualifiers: Migraine type: unspecified Status migrainosus presence: without status migrainosus Intractability: not intractable Qualified Code(s): G43.909 - Migraine, unspecified, not intractable, without status migrainosus Condition: Stable Critical Care Time: No Referrals: ROMAIN BUTLER NP [Primary Care Provider] - Follow up/PCP as directed (1-2 days for reevaluation) ADAM WISE [NON-STAFF PHY W/O PRIVILEGES] - Follow up/PCP as directed (Call tomorrow for appointment and reevaluation.) Instructions: Headache, Adult (DC) Additional Instructions: Take Tylenol/ibuprofen as needed along with Maxalt as recommended. Follow-up with primary care or neurology for reevaluation. Return to ER for intractable headache, numbness tingling weakness/visual disturbance/difficulty speech etc.
[2021-05-20] MEDS ORDERED: Hydromorphone 1 mg/ml Injection ONE (14:49)
== END 2021-05-20 15:24 | disposition home or self-care (01) ==
LOC: ED 12:21
DX: G43.909 Migraine, unspecified, not intractable, without status migrainosus (principal)
CPT/HCPCS: 96360; 96372; 96374; 96375; 99284; J1170; J1200; J1885; A9270-GY

== ENCOUNTER 2021-05-30 14:15 | Day surgery (SDC) | payer OTHER ==
[2021-05-30] MEDS ORDERED: BUPIVACAINE 0.5% VIAL IJ ONE (14:16)
[2021-05-30] MEDS ORDERED: Depo-Medrol 40 MG/ML IM ONE (14:16)
[2021-05-30] MEDS ORDERED: DIPRIVAN 200 MG/20 ML IV ONE (16:36)
[2021-05-30] MEDS ORDERED: Lactated Ringers 1,000 ML IV ONE (16:59)
--- NOTE | 2021-05-30 19:23 | XRAY ---
Indication: Right shoulder injection. Intraoperative fluoroscopy provided for 8 seconds. Single digital spot image submitted for interpretation demonstrates needle tip projecting over the right glenohumeral joint superiorly. Small amount of contrast injected for needle tip placement. Correlate with intraoperative findings/report.
--- NOTE | 2021-05-31 11:58 | XRAY ---
8 seconds fluoroscopy time in surgery for intra-articular injection of the right shoulder.
== END 2021-05-30 17:03 | disposition home or self-care (01) ==
LOC: SDC-PAIN 14:15
PROVIDERS: ATTEND Psychiatry & Neurology Pain Medicine
DX: M19.011 Primary osteoarthritis, right shoulder (principal); Z79.891 Long term (current) use of opiate analgesic
CPT/HCPCS: 20610; 73030; 77002; J1030; J2704; Q9966

== ENCOUNTER 2021-08-15 08:59 | Day surgery (SDC) | payer OTHER ==
[2021-08-15] MEDS ORDERED: Decadron 4 MG INJ IJ ONE (09:00)
[2021-08-15] MEDS ORDERED: Xylocaine 1% Vial 30 ML PF IJ ONE (09:00)
[2021-08-15] MEDS ORDERED: Sodium Chloride 0.9% 10 ML FLUSH Syringe IJ ONE (09:00)
[2021-08-15] MEDS ORDERED: Lactated Ringers 1,000 ML IV ONE (11:22)
--- NOTE | 2021-08-15 13:20 | XRAY ---
Indication: Cervical AMMY. Intraoperative fluoroscopy provided for 20 seconds. Single digital spot image submitted for interpretation demonstrates midline posterior needle tip projecting over cervical thoracic junction. Small amount of contrast injected for needle tip placement. Correlate with intraoperative findings/report.
--- NOTE | 2021-08-15 13:24 | XRAY ---
20 seconds fluoroscopy time in surgery for cervical AMMY.
== END 2021-08-15 13:25 | disposition home or self-care (01) ==
LOC: SDC-PAIN 08:59
PROVIDERS: ATTEND Psychiatry & Neurology Pain Medicine
DX: M54.12 Radiculopathy, cervical region (principal); Z79.899 Other long term (current) drug therapy
CPT/HCPCS: 62321; 72040; 77003; J1100; J2001; Q9966

== ENCOUNTER 2021-09-14 17:29 | Emergency (ER) | payer OTHER ==
--- NOTE | 2021-09-14 18:05 | ERPHSYRPT ---
- History of Present Illness Time Seen by Provider: 09/14/21 18:00 Source: patient Exam Limitations: no limitations Patient Subjective Stated Complaint: L hip pain Triage Nursing Assessment: pt to ED c/o L hip pain onset today. pt states she bent over at work today and immediately felt sharp pain that does not radiate. rates 10 currently. "it reminds me of how my torn labrium on my right side." reports that injury occured january-february 2021. ambulatory with limp but steady gate to room. limited ROM d/t increased pain. Physician History: Patient is a 45-year-old female who presents with a complaint of pain in the r ight hip and buttocks. She was at work and bent over and felt a severe pain in the left buttocks and hip area. She is currently under treatment with an orthopedist for a torn labrum in the right hip and says that this feels very similar. Method of Injury: twisted Occurred: just prior to arrival Quality: aching Severity of Pain-Max: moderate Severity of Pain-Current: moderate Lower Extremities Pain: hip: left (Tenderness with palpation of the left hip and left buttocks area) Modifying Factors: Improves With: movement Associated Symptoms: popping sensation, other (Able to bear weight and ambulate) Allergies/Adverse Reactions: levofloxacin [From Levaquin] Allergy (Verified 09/14/21 18:00) lorazepam [From Ativan] Adverse Reaction (Verified 09/14/21 18:00) HALLUCINATIONS morphine Adverse Reaction (Verified 09/14/21 18:00) SCRATCHING Home Medications: Hydrocodone/Acetaminophen [Hydrocodone-Acetamin 5-325 mg] 5 mg PO TID 02/18/21 [History] Hx Tetanus, Diphtheria Vaccination/Date Given: Yes Hx Influenza Vaccination/Date Given: Yes Hx Pneumococcal Vaccination/Date Given: No Immunizations Up to Date: Yes Travel Risk - International Travel Have you traveled outside of the country in past 3 weeks: No - Coronavirus Screening Are you exhibiting any of the following symptoms?: No Close contact with a COVID-19 positive Pt in past 14-21 Days: No - Vaccine Status Have you recieved a Covid-19 vaccination: No - Review of Systems Constitutional: No Fever, No Chills Eyes: No Symptoms Ears, Nose, & Throat: No Symptoms Respiratory: No Cough, No Dyspnea Cardiac: No Chest Pain, No Edema, No Syncope Abdominal/Gastrointestinal: No Abdominal Pain, No Nausea, No Vomiting, No Diarrhea Genitourinary Symptoms: No Dysuria Musculoskeletal: Joint Pain, No Back Pain, No Neck Pain Skin: No Rash Neurological: No Dizziness, No Focal Weakness, No Sensory Changes Psychological: No Symptoms Endocrine: No Symptoms All Other Systems: Reviewed and Negative - Past Medical History Pertinent Past Medical History: Yes Neurological History: Migraines, Seizures ENT History: No Pertinent History Cardiac History: No Pertinent History Respiratory History: No Pertinent History Endocrine Medical History: No Pertinent History Musculoskeletal History: No Pertinent History GI Medical History: No Pertinent History History: No Pertinent History Psycho-Social History: Anxiety, Panic Disorder Female Reproductive Disorders: No Pertinent History - Past Surgical History Past Surgical History: Yes Neuro Surgical History: No Pertinent History Cardiac: No Pertinent History Respiratory: No Pertinent History Gastrointestinal: Cholecystectomy Genitourinary: No Pertinent History Musculoskeletal: Orthopedic Surgery Female Surgical History: Hysterectomy, Tubal Ligation, Other Other Surgical History: Ruptured ovarian cyst removal. 3 knee and 2 shoulder surgeries - Social History Smoking Status: Former smoker How long have you smoked: years Exposure to second hand smoke: Yes Drug Use: none Patient Lives Alone: No - Female History Hx Now: No - Nursing Vital Signs Nursing Vital Signs: Initial Vital Signs Pulse Rate 120 H 09/14/21 17:52 Respiratory Rate 20 09/14/21 17:52 Blood Pressure 173/101 09/14/21 17:52 O2 Sat by Pulse Oximetry 100 09/14/21 17:52 Pain Scale Pain Intensity 9 - Physical Exam General Appearance: mild distress, alert Eyes, Ears, Nose, Throat Exam: moist mucous membranes Neck Exam: non-tender, supple Cardiovascular/Respiratory Exam: chest non-tender, normal breath sounds, regular rate/rhythm, no respiratory distress Gastrointestinal/Abdominal Exam: non-tender, guarding Back Exam: normal inspection, No vertebral tenderness Hips Exam: left: bone tenderness, limited range of motion, pain, soft tissue tenderness Legs Exam: bilateral leg: non-tender, normal inspection, normal range of motion Knees Exam: bilateral knee: non-tender, normal inspection, normal range of motion Ankle Exam: bilateral ankle: non-tender, normal inspection, normal range of motion Foot Exam: bilateral foot: non-tender, normal inspection, normal range of motion Neuro/Tendon Exam: normal sensation, normal motor functions, no evidence tendon injury Mental Status Exam: alert, oriented x 3, cooperative Skin Exam: normal color, warm, dry SpO2 Interpretation: normal SpO2: 100 O2 Delivery: Room Air - Course Nursing assessment & vital signs reviewed: Yes Ordered Tests: Active Orders 24 hr Category Date Time Status LOWER EXTREMITY WO CONTRAST [CT] Stat Exams 09/14/21 17:58 Ordered - Progress Progress: unchanged - Departure Departure Disposition: Home Clinical Impression: Tear of left acetabular labrum Condition: Stable Critical Care Time: No Referrals: ROMAIN BUTLER NP [Primary Care Provider] - Follow up/PCP as directed Instructions: Hip Pain (DC) Prescriptions: Diclofenac Sodium 50 mg [Voltaren 50 mg] 50 mg PO Q8H 10 Days #30 cap
--- NOTE | 2021-09-14 19:16 | XRAY ---
Indication: Posterior hip pain. Multiple contiguous axial images obtained through the left hip. Sagittal and coronal reformatted images obtained. Comparison: February 18, 2021. No acute fracture, dislocation, or suspicious bony lesions. Visualized noncontrasted soft tissues including visualized pelvic contents are unremarkable. Impression: Continued normal CT left hip.
[2021-09-14 21:31] VITALS: BP 144/92; PULSE 82; O2SAT 99
== END 2021-09-14 21:31 | disposition home or self-care (01) ==
LOC: ED 17:29
DX: S73.102A Unspecified sprain of left hip, initial encounter (principal); X50.1XXA Overexertion from prolonged static or awkward postures, initial encounter; Y99.0 Civilian activity done for income or pay; Z79.891 Long term (current) use of opiate analgesic
CPT/HCPCS: 73700; 99283

== ENCOUNTER 2022-11-21 13:30 | Emergency (ER) | payer OTHER ==
[2022-11-21] MEDS ORDERED: TORAdol 30 mg Injection IM ONE (14:02)
--- NOTE | 2022-11-21 14:04 | XRAY ---
Indication: Pain and swelling. Comparison: July 12, 2020 3 portable views left knee unchanged again demonstrating minimal medial joint space narrowing and tiny patella spurring. No new/acute abnormalities.
[2022-11-21] MEDS ORDERED: TORAdol 30 mg Injection ONE (14:14)
[2022-11-21 14:48] VITALS: BP 138/70; PULSE 88
--- NOTE | 2022-11-21 14:54 | ERPHSYRPT ---
- History of Present Illness Time Seen by Provider: 11/21/22 13:45 Source: patient Exam Limitations: no limitations Patient Subjective Stated Complaint: PT states "I was squatting down yesterday and something popped in my left knee and it hurts really bad now." Triage Nursing Assessment: Pt presented alert and oriented X 3, skin pwd. Pt ambulates with a limp, putting minimal weight on her left leg. PT left knee slightly swollen and tender. Physician History: 46 years old female presented in the ER with chief complaint of left knee pain after she had a ground-level fall when she tripped on something yesterday and h it her knee against the floor. Questionable history of feeling a popping/snapping. She is having moderate to severe sharp pain in the patella with radiation to the back of the knee. Minimal swelling of the knee. No injury anywhere else. Method of Injury: fell Occurred: yesterday Quality: sharpness Severity of Pain-Max: severe Severity of Pain-Current: severe Lower Extremities Pain: knee: left Modifying Factors: Improves With: immobilization, pain medication. Worsens With: movement Associated Symptoms: unable to bear weight Allergies/Adverse Reactions: levofloxacin [From Levaquin] Allergy (Verified 09/14/21 18:00) lorazepam [From Ativan] Adverse Reaction (Verified 09/14/21 18:00) HALLUCINATIONS morphine Adverse Reaction (Verified 09/14/21 18:00) SCRATCHING Home Medications: Hydrocodone/Acetaminophen [Hydrocodone-Acetamin 5-325 mg] 5 mg PO TID 02/18/21 [History] Hx Tetanus, Diphtheria Vaccination/Date Given: Yes Hx Influenza Vaccination/Date Given: Yes Hx Pneumococcal Vaccination/Date Given: No Immunizations Up to Date: Yes Travel Risk - International Travel Have you traveled outside of the country in past 3 weeks: No - Coronavirus Screening Are you exhibiting any of the following symptoms?: No Close contact with a COVID-19 positive Pt in past 14-21 Days: No - Vaccine Status Have you recieved a Covid-19 vaccination: No - Review of Systems Constitutional: No Symptoms Ears, Nose, & Throat: No Symptoms Respiratory: No Symptoms Cardiac: No Symptoms Abdominal/Gastrointestinal: No Symptoms Genitourinary Symptoms: No Symptoms Musculoskeletal: Injury, Joint Pain Skin: No Symptoms Neurological: No Symptoms Psychological: No Symptoms Hematologic/Lymphatic: No Symptoms Immunological/Allergic: No Symptoms - Past Medical History Pertinent Past Medical History: Yes Neurological History: Migraines ENT History: No Pertinent History Cardiac History: No Pertinent History Respiratory History: No Pertinent History Endocrine Medical History: No Pertinent History Musculoskeletal History: No Pertinent History GI Medical History: No Pertinent History History: No Pertinent History Psycho-Social History: Anxiety, Panic Disorder Female Reproductive Disorders: No Pertinent History - Past Surgical History Past Surgical History: Yes Neuro Surgical History: No Pertinent History Cardiac: No Pertinent History Respiratory: No Pertinent History Gastrointestinal: Cholecystectomy Genitourinary: No Pertinent History Musculoskeletal: Orthopedic Surgery Female Surgical History: Hysterectomy, Tubal Ligation, Other Other Surgical History: Ruptured ovarian cyst removal. 3 knee and 2 shoulder surgeries - Social History Smoking Status: Former smoker How long have you smoked: years Exposure to second hand smoke: Yes Drug Use: none Patient Lives Alone: No - Female History Hx Last Menstrual Period: hysterectomy Hx Now: No - Nursing Vital Signs Nursing Vital Signs: Initial Vital Signs Temperature 98.7 F 11/21/22 13:35 Pulse Rate 105 H 11/21/22 13:35 Respiratory Rate 20 11/21/22 13:35 Blood Pressure 149/73 11/21/22 13:35 O2 Sat by Pulse Oximetry 99 11/21/22 13:35 Pain Scale Pain Intensity 8 - Physical Exam General Appearance: no apparent distress, alert Eyes, Ears, Nose, Throat Exam: normal ENT inspection Neck Exam: normal inspection, full range of motion Cardiovascular/Respiratory Exam: normal breath sounds, regular rate/rhythm Hips Exam: bilateral: non-tender, normal inspection, normal range of motion Legs Exam: bilateral leg: non-tender, normal inspection, normal range of motion, no evidence of injury Knees Exam: right knee: non-tender, normal range of motion, left knee: bone tenderness (Patella), soft tissue tenderness (Around patella), bilateral knee: normal inspection, no evidence of injury Ankle Exam: bilateral ankle: non-tender, normal inspection, normal range of motion, no evidence of injury Neuro/Tendon Exam: normal sensation, normal motor functions Mental Status Exam: alert, oriented x 3, cooperative Skin Exam: normal color SpO2 Interpretation: normal SpO2: 99 O2 Delivery: Room Air Ordered Tests: Active Orders 24 hr Category Date Time Status KNEE (3 VIEWS) Stat Exams 11/21/22 13:40 Completed Medication Summary Discontinued Medications Generic Name Dose Route Start Last Admin Trade Name Freq PRN Reason Stop Dose Admin Ketorolac Tromethamine 30 mg 11/21/22 14:02 11/21/22 14:16 Ketorolac Tromethamine 30 Mg/Ml Inj IM 11/21/22 14:03 30 mg STAT ONE Administration Ketorolac Tromethamine Confirm 11/21/22 14:14 Ketorolac Tromethamine 30 Mg/Ml Inj Administered 11/21/22 14:15 Dose 30 mg .ROUTE .STK-MED ONE - Progress Progress: improved, pain not gone completely Progress Note: 11/21/22 14:49 46 years old is evaluated for ground-level fall with injury to left knee. Has tenderness in the patella. No crepitus. Minimal swelling on the medial side of the knee. X-rays negative for fracture dislocation. No obvious gapping/tendon rupture which could be appreciated with exam. She is given Toradol for symptomatic relief. Patient does take [place]'s at home which she is advised to continue. I believe patient has contusion are possible ligament injury which needs further evaluation outpatient. Placed in Ron wrap, weightbearing as tolerated and outpatient orthopedics follow-up. Will give ibuprofen along with [place] which you have at home for pain control. Discussed signs symptoms of worsening needing return to ER which she seems understanding. Stable for discharge. 11/21/22 14:56 Counseled pt/family regarding: diagnosis, need for follow-up, rad results Medical Desision Making - Diagnostic Testing Diagnostic test were ordered, analyzed, and reviewed by me: Yes Radiological Interpretation: Reviewed by me - Risk of complications The pt has a mod risk of morbidity or mortality based on: Need for prescription drug management - Departure Departure Disposition: Home Clinical Impression: Contusion of left knee Condition: Stable Critical Care Time: No Referrals: ROMAIN BUTLER NP [Primary Care Provider] - Follow up with PCP 2 days ORTHO - ASHLEY RANDALL NP [NON-STAFF PHY W/O PRIVILEGES] - Follow up/PCP as directed (Tomorrow for reevaluation) Instructions: Knee Sprain (DC), Knee Pain (DC) Additional Instructions: Weightbearing as tolerated. Intermittent ice application. Follow-up with orthopedics for reevaluation. Take pain medications as needed. Return to ER for any worsening. Prescriptions: Ibuprofen 600 mg PO Q6HPRN PRN 10 Days #20 tablet PRN Reason: Pain
[2022-11-21 14:55] VITALS: O2SAT 99
== END 2022-11-21 15:31 | disposition home or self-care (01) ==
LOC: ED 13:30
DX: S80.02XA Contusion of left knee, initial encounter (principal); W18.30XA Fall on same level, unspecified, initial encounter; Z79.899 Other long term (current) drug therapy; Z20.828 Contact with and (suspected) exposure to other viral communicable diseases
CPT/HCPCS: 73562; 96372; 99283; J1885

== ENCOUNTER 2023-05-13 18:35 | Emergency (ER) | payer OTHER ==
[2023-05-13] MEDS ORDERED: Sodium Chloride 0.9% 1000 ML 1,000 ML IV STA (18:57)
[2023-05-13 19:00] VITALS: TEMP 98.2; O2SAT 100
[2023-05-13] MEDS ORDERED: Sodium Chloride 0.9% 1000 ML 1,000 ML ONE (19:05)
[2023-05-13 19:15] LABS: Absolute Neutrophil Ct (ANC) 4.26 x10^3/uL (1.4-6.9); BASOPHIL % 0.7 % (0.0-0.4); Basophil (Absolute #) 0.07 x10^3/uL (0-0.4); Eosinophil % 0.9 % (0.00-5.0); Eosinophil (Absolute #) 0.09 x10^3/uL (0-0.5); Hemoglobin 12.8 g/dL (12.0-16.0); IMMATURE GRAN # 0.02 x10^3u/L (0.00-0.03); IMMATURE GRAN % 0.2 % (0.00-0.4); Lymphocyte (Absolute #) 5.16 x10^3/uL (1.0-4.6); Lymphocytes % 49.4 % (24.0-44.0); Mean Corpuscular Hemoglobin 32.2 pg (26-32); Mean Corpuscular Hgb Concent. 32.8 g/dL (32-36); Mean Platelet Volume 9.8 fL (7.5-11.0); Monocyte (Absolute #) 0.85 x10^3/uL (0.0-1.3); Monocytes % 8.1 % (0.0-12.0); Neutrophil % 40.7 % (36.0-66.0); Platelet Count 295 x10^3/uL (150-450); Red Blood Count 3.98 x10^6/uL (4.1-5.4); White Blood Count 10.5 x10^3/uL (4.0-10.5)
[2023-05-13 19:19] LABS: Appearance Clear (Clear); Bacteria None Seen /HPF (None Seen); Bilirubin Negative (Negative); Blood Negative (Negative); Epithelial Cells None Seen /HPF (None Seen); Glucose, Urine Negative (Negative); Hyaline Casts NONE SEEN /LPF (0-2); Ketones Trace (Negative); Nitrite Negative (Negative); Protein,Urine Dip Negative (Negative); RBC 0-2 /HPF (0-5); Specific Gravity 1.025 (1.005-1.030); Urobilinogen 0.2 mg/dL (0.2)
[2023-05-13 19:20] LABS: ADD URINE CULTURE? NO (NO); Leukocyte Esterase Trace (Negative)
[2023-05-13 19:29] LABS: ALBUMIN 4.6 g/dL (3.5-5.0); ANION GAP 12.2 MEQ/L (5-15); BILIRUBIN,TOTAL 0.3 mg/dL (0.2-1.3); Calcium 9.4 mg/dL (8.4-10.2); Creatinine 1 0.78 mg/dL (0.52-1.04); EST GLOMERULAR FILTRATION RATE 93.1 ML/MIN; Potassium 3.3 mmol/L (3.5-5.1); Total Protein 7.3 g/dL (6.3-8.2)
[2023-05-13 19:37] VITALS: RESP 18
[2023-05-13] MEDS ORDERED: Klor Con PO ONE ×2 (20:09→20:20)
--- NOTE | 2023-05-13 20:09 | ERPHSYRPT ---
- History of Present Illness Time Seen by Provider: 05/13/23 19:00 Historian: patient Exam Limitations: no limitations Patient Subjective Stated Complaint: pt c/o of LLQ pain that began about 4 days ago Triage Nursing Assessment: Pt brought to the ER by her daughter, hypertensive, tachycardic, rates pain as 8/10, hx of hysterectomy, last bowel movement yesterday and it was normal, denies painful urination, states that she uses dilaudid for her migraines, pulses normal, skin n/w/d, doesn't appear to be in any distress Physician History: Patient is a 47-year-old female presents to emergency department for evaluation of pain to her left lower quadrant x4 days. No trauma no fever no hematuria dysuria. Pain is well localized. No radiation. Symptoms are mild to moderate in intensity. No specific worsening improving factors. Patient is experiencing normal bowel movements. No other associated symptomology. No chest pain or shortness of breath. Patient voices no other complaints or concerns at this time. Patient requesting Dilaudid for pain control. Portions of this note were created with voice recognition technology. There may be grammatical, spelling, punctuation or sound alike errors Timing/Duration: day(s) (4 days) Activities at Onset: none Quality: aching Abdominal Pain Onset Location: LLQ Pain Radiation: no radiation Severity of Pain-Max: moderate Severity of Pain-Current: mild Modifying Factors: Improves With: palpation Associated Symptoms: denies symptoms Previous symptoms: no prior history Allergies/Adverse Reactions: levofloxacin [From Levaquin] Allergy (Verified 05/13/23 18:59) meloxicam [From Mobic] Allergy (Verified 05/13/23 18:59) lorazepam [From Ativan] Adverse Reaction (Verified 05/13/23 18:59) HALLUCINATIONS morphine Adverse Reaction (Verified 05/13/23 18:59) SCRATCHING Home Medications: Hydrocodone/Acetaminophen [Hydrocodone-Acetamin 10-325 mg] 1 tab PO QID PRN 05/13/23 [History] Hx Tetanus, Diphtheria Vaccination/Date Given: Yes Hx Influenza Vaccination/Date Given: Yes Hx Pneumococcal Vaccination/Date Given: No Travel Risk - International Travel Have you traveled outside of the country in past 3 weeks: No - Coronavirus Screening Are you exhibiting any of the following symptoms?: No Close contact with a COVID-19 positive Pt in past 14-21 Days: No - Vaccine Status Have you recieved a Covid-19 vaccination: No - Review of Systems Constitutional: No Symptoms, No Fever, No Chills Eyes: No Symptoms Ears, Nose, & Throat: No Symptoms Respiratory: No Symptoms, No Cough, No Dyspnea Cardiac: No Symptoms, No Chest Pain, No Edema, No Syncope Abdominal/Gastrointestinal: No Symptoms, No Abdominal Pain, No Nausea, No Vomiting, No Diarrhea Genitourinary Symptoms: No Symptoms, No Dysuria Musculoskeletal: No Symptoms, No Back Pain, No Neck Pain Skin: No Symptoms, No Rash Neurological: No Symptoms, No Dizziness, No Focal Weakness, No Sensory Changes Psychological: No Symptoms Endocrine: No Symptoms Hematologic/Lymphatic: No Symptoms Immunological/Allergic: No Symptoms All Other Systems: Reviewed and Negative - Past Medical History Pertinent Past Medical History: Yes Neurological History: Migraines ENT History: No Pertinent History Cardiac History: No Pertinent History Respiratory History: No Pertinent History Endocrine Medical History: No Pertinent History Musculoskeletal History: No Pertinent History GI Medical History: No Pertinent History History: No Pertinent History Psycho-Social History: Anxiety, Panic Disorder Female Reproductive Disorders: No Pertinent History - Past Surgical History Past Surgical History: Yes Neuro Surgical History: No Pertinent History Cardiac: No Pertinent History Respiratory: No Pertinent History Gastrointestinal: Cholecystectomy Genitourinary: No Pertinent History Musculoskeletal: Orthopedic Surgery Female Surgical History: Hysterectomy, Tubal Ligation, Other Other Surgical History: Ruptured ovarian cyst removal. 3 knee and 2 shoulder surgeries - Social History Smoking Status: Former smoker How long have you smoked: years Exposure to second hand smoke: Yes Drug Use: none Patient Lives Alone: No - Female History Hx Now: No - Nursing Vital Signs Nursing Vital Signs: Initial Vital Signs Temperature 98.2 F 05/13/23 18:50 Pulse Rate 91 H 05/13/23 18:50 Respiratory Rate 19 05/13/23 18:50 Blood Pressure 151/95 05/13/23 18:50 O2 Sat by Pulse Oximetry 100 05/13/23 18:50 Pain Scale Pain Intensity 8 - Physical Exam General Appearance: no apparent distress, alert Eye Exam: PERRL/EOMI, eyes nml inspection Ears, Nose, Throat Exam: normal ENT inspection, pharynx normal, moist mucous membranes Neck Exam: normal inspection, non-tender, supple, full range of motion Respiratory Exam: normal breath sounds, lungs clear, No respiratory distress Cardiovascular Exam: regular rate/rhythm, normal heart sounds Gastrointestinal/Abdomen Exam: soft, other (Tenderness to palpation left lower quadrant), No tenderness, No mass Back Exam: normal inspection, normal range of motion, No CVA tenderness, No vertebral tenderness Extremity Exam: normal inspection, normal range of motion, pelvis stable Neurologic Exam: alert, oriented x 3, cooperative, normal mood/affect, nml cerebellar function, sensation nml, No motor deficits Skin Exam: normal color, warm, dry SpO2: 100 - Course Nursing assessment & vital signs reviewed: Yes - CT Exams Abdomen/Pelvis CT Interpretation: Tele-radiologist Report (Again mild diffuse fecal stasis, nonobstructing left punctate stone and normal appendix. No new acute findings.) Ordered Tests: Active Orders 24 hr Category Date Time Status IV Insertion STAT Care 05/13/23 18:57 Active ABDOMEN AND PELVIS W/0 CONTRAS [CT] Stat Exams 05/13/23 18:58 Taken CBC W DIFF Stat Lab 05/13/23 19:11 Completed CMP Stat Lab 05/13/23 19:11 Completed UA W/RFX UR CULTURE Stat Lab 05/13/23 19:01 Completed Medication Summary Discontinued Medications Generic Name Dose Route Start Last Admin Trade Name Freq PRN Reason Stop Dose Admin Sodium Chloride 1,000 mls @ 999 mls/hr 05/13/23 18:57 05/13/23 19:07 Sodium Chloride 0.9% 1000 Ml IV 05/13/23 19:57 999 mls/hr .Q1H1M STA Administration Sodium Chloride Confirm 05/13/23 19:05 Sodium Chloride 0.9% 1000 Ml Administered 05/13/23 19:06 Dose 1,000 mls @ ud .ROUTE .[facility] Lab/Rad Data: Laboratory Result Diagrams 05/13/23 19:11 05/13/23 19:11 Laboratory Results 05/13/23 05/13/23 05/13/23 Range/Units 19:11 19:11 19:01 WBC 10.5 (4.0-10.5) x10^3/uL RBC 3.98 L (4.1-5.4) x10^6/uL Hgb 12.8 (12.0-16.0) g/dL Hct 39.0 (35-47) % MCV 98.0 (78-100) fL MCH 32.2 H (26-32) pg MCHC 32.8 (32-36) g/dL RDW 12.0 (11.5-14.0) % Plt Count 295 (150-450) x10^3/uL MPV 9.8 (7.5-11.0) fL Gran % 40.7 (36.0-66.0) % Immature Gran % (Auto) 0.2 (0.00-0.4) % Nucleat RBC Rel Count 0.0 (0.00-0.1) % Eos # (Auto) 0.09 (0-0.5) x10^3/uL Immature Gran # (Auto) 0.02 (0.00-0.03) x10^3u/L Absolute Lymphs (auto) 5.16 H (1.0-4.6) x10^3/uL Absolute Monos (auto) 0.85 (0.0-1.3) x10^3/uL Absolute Nucleated RBC 0.00 (0.00-0.01) x10^3u/L Lymphocytes % 49.4 H (24.0-44.0) % Monocytes % 8.1 (0.0-12.0) % Eosinophils % 0.9 (0.00-5.0) % Basophils % 0.7 (0.0-0.4) % Absolute Granulocytes 4.26 (1.4-6.9) x10^3/uL Basophils # 0.07 (0-0.4) x10^3/uL Sodium 139 (137-145) mmol/L Potassium 3.3 L (3.5-5.1) mmol/L Chloride 103 (98-107) mmol/L Carbon Dioxide 27 (22-30) mmol/L Anion Gap 12.2 (5-15) MEQ/L BUN 8 (7-17) mg/dL Creatinine 0.78 (0.52-1.04) mg/dL Estimated GFR 93.1 ML/MIN Glucose 113 H (74-106) mg/dL Calcium 9.4 (8.4-10.2) mg/dL Total Bilirubin 0.30 (0.2-1.3) mg/dL AST 27 (14-36) U/L ALT 20 (0-35) U/L Alkaline Phosphatase 60 (38-126) U/L Serum Total Protein 7.3 (6.3-8.2) g/dL Albumin 4.6 (3.5-5.0) g/dL Urine Color Yellow (Yellow) Urine Appearance Clear (Clear) Urine pH 5.0 (4.6-8.0) Ur Specific [place] 1.025 (1.005-1.030) Urine Protein Negative (Negative) Urine Glucose (UA) Negative (Negative) mg/dL Urine Ketones Trace A (Negative) Urine Blood Negative (Negative) Urine Nitrite Negative (Negative) Urine Bilirubin Negative (Negative) Urine Urobilinogen 0.2 (0.2) mg/dL Ur Leukocyte Esterase Trace A (Negative) U Hyaline Cast (Auto) NONE SEEN (0-2) /LPF Urine Microscopic RBC 0-2 (0-5) /HPF Urine Microscopic WBC 3-5 (0-5) /HPF Ur Epithelial Cells None Seen (None Seen) /HPF Urine Bacteria None Seen (None Seen) /HPF Urine Culture Reflexed NO (NO) - Progress Progress: improved Progress Note: Patient is a 47-year-old female presents to our ED with left lower quadrant pain x4 days. CBC nonremarkable. CMP reveals hypokalemia at 3.3. Patient received oral potassium replacement. Urinalysis shows trace leuk esterase. Urine cultures ordered and pending. Patient received oral potassium chloride 40 mEq. Normal saline administered as well. CT abdomen pelvis reveals constipation/fecal stasis and a nonobstructing left renal punctate stone otherwise negative. Patient reassessed. She is resting comfortably. Patient received 0.5 mg of Dilaudid per her request for pain control. Portions of this note were created with voice recognition technology. There may be grammatical, spelling, punctuation or sound alike errors Complexity of problem addressed is moderate acute complicated Complex of data reviewed and analyzed is moderate. Test ordered test reviewed. Results analyzed. clinical correlation made between history and physical examination. Visit complication and or risk of morbidity/mortality of patient management is high. Patient received Dilaudid for pain control. We will discharge home. Vital stable. Time spent in discharge patient is approximately 20 minutes. Plan of care established for shared decision making. No social determinants of health present impede follow-up. Portions of this note were created with voice recognition technology. There may be grammatical, spelling, punctuation or sound alike errors 05/13/23 20:16 05/13/23 20:19 Counseled pt/family regarding: lab results, diagnosis, need for follow-up, rad results - Departure Departure Disposition: Home Clinical Impression: Constipation, Left nephrolithiasis, Abdominal pain, Hypokalemia Condition: Stable Critical Care Time: No Referrals: BERNICE CARRERA MD [Primary Care Provider] - Follow up/PCP as directed Additional Instructions: Discharge/Care Plan JOAO RODRIGUES was seen on 05/13/23 in the Emergency Room. The patient was counseled regarding Diagnosis,Lab results, Imaging studies, need for follow up and when to return to the Emergency Room. Prescriptions given: Discharge Note I have spoken with the patient and/or caregivers. I have explained the patient's condition, diagnosis and treatment plan based on the information available to me at this time. I have answered the patient's and/or caregiver's questions and ad dressed any concerns. The patient and/or caregivers have as good understanding of the patient's diagnosis, condition and treatment plan as can be expected at this point. The vital signs have been stable. The patient's condition is stable and appropriate for discharge from the emergency department. The patient will pursue further outpatient evaluation with the primary care physician or other designated or consulting physician as outlined in the discharge instructions. The patient and/or caregivers are agreeable to this plan of care and follow-up instructions have been explained in detail. The patient and/or caregivers have received these instruction. The patient/and or caregivers are aware that any significant change in condition or worsening of symptoms should prompt an immediate return to this or the closest emergency department or call 911.
[2023-05-13] MEDS ORDERED: Hydromorphone 1 mg/ml Injection IV ONE (20:19)
[2023-05-13] MEDS ORDERED: Hydromorphone 1 mg/ml Injection ONE (21:01)
[2023-05-13 21:12] VITALS: BP 125/81; PULSE 91
--- NOTE | 2023-05-14 08:41 | XRAY ---
Indication: Left lower quadrant pain and nausea. Multiple contiguous axial images obtained through the abdomen and pelvis without contrast. Comparison: September 24, 2018 Lung bases again demonstrates minimal dependent atelectasis. No infiltrate or effusion. Heart not enlarged. Noncontrasted stomach and bowel loops appear nonobstructed with normal-appearing appendix. Again mild diffuse scattered colonic fecal debris throughout. Stable nonobstructing left renal punctate calculus and cholecystectomy clips. No free fluid/air. Remaining liver, pancreas, spleen, adrenal glands, kidneys, ureters, bladder, uterus, and aorta are unremarkable for noncontrast exam. Osseous structures intact. Impression: 1. Again mild diffuse fecal stasis in nonobstructing left renal punctate calculus. 2. Remaining CT abdomen/pelvis without contrast exam continues to be negative.
== END 2023-05-13 21:18 | disposition home or self-care (01) ==
LOC: ED 18:35
DX: K59.00 Constipation, unspecified (principal); N20.0 Calculus of kidney; R10.32 Left lower quadrant pain; E87.6 Hypokalemia; Z79.891 Long term (current) use of opiate analgesic; Z28.310 Unvaccinated for COVID-19
CPT/HCPCS: 36000; 36415; 74176; 80053; 81001; 85025; 96360; 96374; 99284; J1170; A9270-GY

== ENCOUNTER 2024-11-19 11:28 | Emergency (ER) | payer BC, OTHER ==
[2024-11-19 11:41] VITALS: TEMP 98.2
[2024-11-19] MEDS ORDERED: Compazine 10 MG/2 ML ONE (12:08)
[2024-11-19] MEDS ORDERED: BENADRYL 50 MG/ML ONE (12:08)
[2024-11-19] MEDS: BENADRYL 50 MG/ML IV ONE (12:10)
[2024-11-19] MEDS: Compazine 10 MG/2 ML IV ONE (12:13)
--- NOTE | 2024-11-19 12:20 | ERPHSYRPT ---
- History of Present Illness Source: patient Exam Limitations: no limitations Patient Subjective Stated Complaint: PT states "My blood pressure is up but I am not sure if it is due to my headache or my my blood pressure is causeing the headache." Triage Nursing Assessment: Pt presented alert and oriented X 3, skin pwd. Pt ambulates with an upright steady gait, able to speak in clear full sentneces PT resented comfortably on the bed with eyes shut. Physician History: Patient has a headache. She has a history of migraines. This ones been going on about 3 days. She says that they only last about 2 days. She tried some Maxalt at home and it did not help. Pain is at about the crown of her head. It is throbbing and stabbing. It is similar pain to what she usually has. She has photophobia and sonophobia. She says she is nauseated but not vomiting. She said this feels like her typical migraine just a little bit worse.Light and sound makes it worse. Resting in a dark room makes it better.Is not the worst headache of her life. It is not a thunderclap type onset. There is been no seizures or other neurological sequela.It is like her usual headaches. Allergies/Adverse Reactions: levofloxacin [From Levaquin] Allergy (Verified 05/13/23 18:59) meloxicam [From Mobic] Allergy (Verified 05/13/23 18:59) lorazepam [From Ativan] Adverse Reaction (Verified 05/13/23 18:59) HALLUCINATIONS morphine Adverse Reaction (Verified 05/13/23 18:59) SCRATCHING Home Medications: Hydrocodone/Acetaminophen [Hydrocodone-Acetamin 10-325 mg] 1 tab PO QID PRN 05/13/23 [History] Hx Tetanus, Diphtheria Vaccination/Date Given: Yes Hx Influenza Vaccination/Date Given: Yes Hx Pneumococcal Vaccination/Date Given: No Immunizations Up to Date: No Travel Risk - International Travel Have you traveled outside of the country in past 3 weeks: No - Emerging Infectious Disease Are you exhibiting symptoms associated with any current EIDs: No - Review of Systems Constitutional: No Symptoms Eyes: Photophobia Ears, Nose, & Throat: No Symptoms Respiratory: No Symptoms Psychological: No Symptoms All Other Systems: Reviewed and Negative - Past Medical History Pertinent Past Medical History: Yes Neurological History: Migraines, Seizures ENT History: No Pertinent History Cardiac History: No Pertinent History Respiratory History: No Pertinent History Endocrine Medical History: No Pertinent History Musculoskeletal History: No Pertinent History GI Medical History: No Pertinent History History: No Pertinent History Psycho-Social History: Anxiety, Panic Disorder Female Reproductive Disorders: No Pertinent History Other Medical History: PSH: RIGHT SHOULDER SURGERY (2012 AND 2014); 3 KNEE SURGERY (RIGHT-PARTIAL TKA, 2 MICROFRACTURES), HYSTERECTOMY, GALLBLADDER REMOVED, CYST REMOVED, TUBAL RUPTURE - Past Surgical History Past Surgical History: Yes Neuro Surgical History: No Pertinent History Cardiac: No Pertinent History Respiratory: No Pertinent History Gastrointestinal: Cholecystectomy Genitourinary: No Pertinent History Musculoskeletal: Orthopedic Surgery Female Surgical History: Hysterectomy, Tubal Ligation, Other Other Surgical History: Ruptured ovarian cyst removal. 3 knee and 2 shoulder surgeries - Female History Hx Last Menstrual Period: hysterectomy Hx Now: No - Social History Smoking Status: Former smoker How long have you smoked: years Exposure to second hand smoke: Yes Drug Use: none - Social Determinants of Health Will the patient participate in the screening: Declined to provide - Nursing Vital Signs Nursing Vital Signs: Initial Vital Signs Temperature 98.2 F 11/19/24 11:36 Pulse Rate 115 H 11/19/24 11:36 Respiratory Rate 18 11/19/24 11:36 Blood Pressure 186/96 11/19/24 11:36 O2 Sat by Pulse Oximetry 99 11/19/24 11:36 Pain Scale Pain Intensity 0 - Physical Exam General Appearance: no apparent distress Eye Exam: PERRL/EOMI Ears, Nose, Throat Exam: normal ENT inspection Neck Exam: normal inspection Cardiovascular Exam: regular rate/rhythm Mental Status Exam: alert, oriented x 3, cooperative candy roller Exam: normal hearing, normal speech Coordination/Gait Exam: normal finger to nose, normal gait Motor/Sensory Exam: no motor deficit, no sensory deficit Skin Exam: normal color, warm, dry SpO2: 99 - Course Nursing assessment & vital signs reviewed: Yes Ordered Tests: Medication Summary Discontinued Medications Generic Name Dose Route Start Last Admin Trade Name Freq PRN Reason Stop Dose Admin Diphenhydramine HCl 25 mg 11/19/24 11:48 11/19/24 12:10 Diphenhydramine Hcl 50 Mg/Ml Vial IV 11/19/24 11:49 25 mg STAT ONE Administration Diphenhydramine HCl Confirm 11/19/24 12:08 Diphenhydramine Hcl 50 Mg/Ml Vial Administered 11/19/24 12:09 Dose 50 mg .ROUTE .[facility] Hydromorphone HCl 1 mg 11/19/24 12:47 11/19/24 12:51 Hydromorphone 1 Mg/1ml Inj IV 11/19/24 12:48 1 mg STAT ONE Administration Hydromorphone HCl Confirm 11/19/24 12:49 Hydromorphone 1 Mg/1ml Inj Administered 11/19/24 12:50 Dose 1 mg .ROUTE .[facility] Prochlorperazine Edisylate 10 mg 11/19/24 11:48 11/19/24 12:13 Prochlorperazine Edisylate 10 Mg/2 Ml Vial IV 11/19/24 11:49 10 mg STAT ONE Administration Prochlorperazine Edisylate Confirm 11/19/24 12:08 Prochlorperazine Edisylate 10 Mg/2 Ml Vial Administered 11/19/24 12:09 Dose 10 mg .ROUTE .[facility] - Progress Progress: improved Air Movement: good Progress Note: I tried Benadryl and Compazine IV. She got minimal relief from that. I went ahead and gave her some Dilaudid after that she got near full relief. We watched her for about another hour. She said that she is feeling good enough to go home. On the differential was migraine, tension headache,Less likely would be subarachnoid hemorrhage or other more pathological headache symptoms.She has a history of migraines and this felt similar to her migraines. I think that she is just basically having a simple migraine. I am going to discharge her to home in stable condition. 11/19/24 14:42 Medical Desision Making - Risk of complications Minimal Risk: Minimal risk of morbidity - Departure Departure Disposition: Home Clinical Impression: Migraine headache Condition: Stable Critical Care Time: No Referrals: BERNICE CARRERA MD [Primary Care Provider, [facility]] - Follow up/PCP as directed Instructions: Headache, Adult (DC)
[2024-11-19] MEDS ORDERED: Hydromorphone 1 mg/ml Injection ONE (12:49)
[2024-11-19] MEDS: Hydromorphone 1 mg/ml Injection IV ONE (12:51)
[2024-11-19 14:10] VITALS: BP 145/75; PULSE 48; RESP 17
[2024-11-19 14:44] VITALS: O2SAT 99
== END 2024-11-19 14:56 | disposition home or self-care (01) ==
LOC: ED 11:28
DX: G43.909 Migraine, unspecified, not intractable, without status migrainosus (principal); Z79.891 Long term (current) use of opiate analgesic
CPT/HCPCS: 96374; 96375; 99283; 99284; J1171; J1200

== ENCOUNTER 2025-05-25 13:34 | Day surgery (SDC) | payer BC, OTHER ==
[2025-05-25] MEDS ORDERED: methylPREDNISolone acetate IM ONE (13:35)
[2025-05-25] MEDS ORDERED: BUPIVACAINE 0.5% VIAL IJ ONE (13:35)
[2025-05-25] MEDS ORDERED: Lactated Ringers 1,000 ML IV ONE (13:59)
[2025-05-25] MEDS ORDERED: propofoL IV ONE (15:27)
[2025-05-25] MEDS ORDERED: DILAUDID 0.5 MG/0.5 ML SYRINGE ONE (16:14)
--- NOTE | 2025-05-25 17:21 | XRAY ---
Indication: Right shoulder, subacromial bursa, and biceps tendon injection. Intraoperative fluoroscopy provided for 13 seconds. 3 digital spot image submitted for interpretation demonstrates needle tip projecting over right glenohumeral joint superiorly. 2nd needle tip subacromial. 3rd needle tip overlies superior femur head. Small amount of contrast injected for all needle tip placement. Correlate with intraoperative findings/report.
--- NOTE | 2025-05-25 17:36 | XRAY ---
13 seconds of fluoroscopy were used in surgery for an intra-articular right shoulder, right subacromial bursa injection and a right biceps tendon injection.
== END 2025-05-25 16:38 | disposition home or self-care (01) ==
LOC: SDC-PAIN 13:34
PROVIDERS: ATTEND Psychiatry & Neurology Pain Medicine
DX: M19.011 Primary osteoarthritis, right shoulder (principal); M75.51 Bursitis of right shoulder; M75.21 Bicipital tendinitis, right shoulder

== ENCOUNTER 2025-06-07 07:37 | Day surgery (SDC) | payer BC, OTHER ==
[2025-06-07] MEDS ORDERED: Lactated Ringers 1,000 ML IV ONE (07:57)
[2025-06-07] MEDS ORDERED: CEFAZOLIN SODIUM ONE (07:58)
[2025-06-07] MEDS: Lactated Ringers 1,000 ML IV SCH (08:00)
[2025-06-07 08:16] LABS: Hematocrit 38.4 % (34.1-44.9); Hemoglobin 12.6 g/dL (11.2-15.7); Mean Corpuscular Hemoglobin 32.1 pg (25.6-32.2); Mean Corpuscular Hgb Concent. 32.8 g/dL (32.2-35.5); Platelet Count 312 x10^3/uL (182-369); Red Blood Count 3.93 x10^6/uL (3.93-5.22); White Blood Count 13.6 x10^3/uL (3.98-10.04)
[2025-06-07 08:20] VITALS: BP 148/86; PULSE 89; RESP 16; TEMP 98.7; O2SAT 99
[2025-06-07 08:29] LABS: Calcium 9.2 mg/dL (8.4-10.2); Carbon Dioxide 22.0 mmol/L (22-30); Creatinine 1 0.85 mg/dL (0.52-1.04); EST GLOMERULAR FILTRATION RATE 82.9 ML/MIN; Glucose 97.0 mg/dL (74-106); Potassium 3.8 mmol/L (3.5-5.1); SGOT/AST 25.0 U/L (14-36); SGPT/ALT 18.0 U/L (0-35); Total Protein 7.2 g/dL (6.3-8.2)
== END 2025-06-07 08:50 | disposition home or self-care (01) ==
LOC: SDC 07:37
PROVIDERS: ATTEND Podiatrist Foot & Ankle Surgery
DX: Z53.8 Procedure and treatment not carried out for other reasons (principal); D72.829 Elevated white blood cell count, unspecified